=== PATIENT | female | born 1980 | race African-American/Black ===

== ENCOUNTER 2016-11-12 02:14 | Emergency (ER) | payer SELFPAY ==
[2016-11-12] MEDS ORDERED: METHOCARBAMOL 750 MG TABLET PO ONE (04:19)
--- NOTE | 2016-11-12 04:27 | ER Document Report ---
HPI - HPI Patient complains to provider of: neck shoulder arm spasm Onset: Other - september Quality of pain: Achy Severity: Severe Pain Level: 4 Context: Patient presents to the emergency department with complaints of right sided neck shoulder arm down to the fingertips pain. Patient reports symptoms since September. 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 She also reports that in September she fell down several times while rollerskating. She complains of spasms going down her shoulder and arm. She reports nothing is helping with the spasms. She reports she's attempted [id number] aids without relief of symptoms. Associated Symptoms: None Exacerbated by: Denies Relieved by: Denies Similar symptoms previously: No Recently seen / treated by doctor: No - REPRODUCTIVE LMP: 11-03-16 - DERM Skin Color: Normal Past Medical History - General Information source: Patient Last Menstrual Period: 5 days ago - Social History Smoking Status: Never Smoker Cigarette use (# per day): No Chew tobacco use (# tins/day): No Frequency of alcohol use: Occasional Drug Abuse: None Lives with: Family Family History: Reviewed & Not Pertinent, Other - RA mother Patient has suicidal ideation: No Patient has homicidal ideation: No Renal/ Medical History: Denies: Hx Peritoneal Dialysis Psychiatric Medical History: Reports: Hx Anxiety, Hx Post Traumatic Stress Disorder Surgical Hx: Negative Vertical Provider Document - CONSTITUTIONAL Agree With Documented VS: Yes Exam Limitations: No Limitations General Appearance: WD/WN, Mild Distress - winces with right shoulder/neck/arm - INFECTION CONTROL TRAVEL OUTSIDE OF THE [place] IN LAST 30 DAYS: No - HEENT HEENT: Atraumatic, Normocephalic - NECK Neck: Normal Inspection, Supple. negative: Lymphadenopathy-Left, Lymphadenopathy-Right - RESPIRATORY Respiratory: Breath Sounds Normal, No Respiratory Distress O2 Sat by Pulse Oximetry: 99 - CARDIOVASCULAR Cardiovascular: Regular Rate, Regular Rhythm - MUSCULOSKELETAL/EXTREMETIES Musculoskeletal/Extremeties: MAEW, FROM, Tender - c/o right trapezius, shoulder down arm to finger tips pain. c/o muscle spasms. 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 Patient is new to the area, will give her list of family care providers. 11/12/16 05:15 Patient reports she feels much better. Patient instructed on importance of follow-up with primary care provider. - Vital Signs Vital signs: Temp Pulse Resp BP Pulse Ox 97.8 F 93 18 133/91 H 99 11/12/16 02:28 11/12/16 02:28 11/12/16 02:28 11/12/16 02:28 11/12/16 02:28 Discharge - Discharge Clinical Impression: Muscle spasm of right shoulder, Elevated blood pressure reading Condition: Stable Disposition: HOME, SELF-CARE Instructions: Muscle Relaxers ([facility]), Family Physicians / Practices Additional Instructions: *You have been evaluated for right shoulder arm pain, muscle spasms *massage *Follow up with a primary care provider within one week *Take medication as prescribed *Return to ED for worsening condition, changes, needs, concerns Prescriptions: Cyclobenzaprine HCl [Flexeril 10 Mg Tablet] 10 mg PO TID #30 tablet Forms: Elevated Blood Pressure
[2016-11-12 05:43] VITALS: BP 122/82
== END 2016-11-12 05:32 | disposition home or self-care (01) ==
LOC: ER 02:14
DX: M62.838 Other muscle spasm (principal); R03.0 Elevated blood-pressure reading, without diagnosis of hypertension
CPT/HCPCS: 99283; J3490

== ENCOUNTER 2016-11-21 03:38 | Emergency (ER) | payer SELFPAY ==
[2016-11-21] MEDS ORDERED: ONDANSETRON HCL INJ/PF 4 MG/2 ML SDV IV ONE (04:16)
[2016-11-21] MEDS ORDERED: NORMAL SALINE 1000 ML 1,000 ML IV ONE (04:16)
--- NOTE | 2016-11-21 04:27 | ER Document Report ---
ED General - General TRAVEL OUTSIDE OF THE [place] IN LAST 30 DAYS: No <RONEY HAMMER - Last Filed: 11/21/16 06:53> <CÉSAR HORN - Last Filed: 11/21/16 12:28> - General Stated Complaint: VOMITING Notes: Patient is a 36-year-old female who presents with complaint of a syncopal episode. She does admit to drinking some alcohol tonight. Patient says she went to get to bathroom and does not remember much after that. She does have some headache. No chest pain. No shortness of breath. She does have some pain into right shoulder which has been ongoing for several days. She was seen here several days ago for spasming and her right shoulder. No difficulty breathing. No abdominal pain. She denies being . She says that she has a lot of things going on with her life and that her life is complicated but she would not go into that further. She denies being suicidal. She denies any injuries from the fall other than pain into her face and head. He denies any focal weakness or numbness. She denies any drug abuse. She denies any recent fevers or infections. (RONEY HAMMER) - Related Data Allergies/Adverse Reactions: No Known Allergies Allergy (Verified 11/21/16 05:06) Past Medical History - Social History Smoking Status: Unknown if Ever Smoked Frequency of alcohol use: Occasional Drug Abuse: None Family History: Reviewed & Not Pertinent, Other - RA mother Renal/ Medical History: Denies: Hx Peritoneal Dialysis Psychiatric Medical History: Reports: Hx Anxiety, Hx Post Traumatic Stress Disorder <RONEY HAMMER - Last Filed: 11/21/16 06:53> Review of Systems <RONEY HAMMER - Last Filed: 11/21/16 06:53> <CÉSAR HORN - Last Filed: 11/21/16 12:28> - Review of Systems Notes: My Normal Review Basic REVIEW OF SYSTEMS: CONSTITUTIONAL : Denies fever, chills, or sweats. Denies recent illness. EENT: Denies eye, ear, throat, or mouth pain or symptoms. Denies nasal or sinus congestion. CARDIOVASCULAR: Denies chest pain. RESPIRATORY: Denies cough, cold, or chest congestion. Denies shortness of breath, difficulty breathing, or wheezing. GASTROINTESTINAL: Denies abdominal pain. Denies nausea, vomiting, or diarrhea. Denies constipation. Last BM: : MUSCULOSKELETAL: Denies neck or back pain or joint pain or swelling. SKIN: Denies rash or skin lesions. NEUROLOGICAL: Syncopal episode. Headache. ALL OTHER SYSTEMS REVIEWED AND NEGATIVE. (RONEY HAMMER) Physical Exam <RONEY HAMMER - Last Filed: 11/21/16 06:53> <CÉSAR HORN - Last Filed: 11/21/16 12:28> - Vital signs Vitals: Resp 14 11/21/16 03:45 - Notes Notes: General Appearance: Well nourished, alert, cooperative, no acute distress, no obvious discomfort. Vitals: reviewed, See vital signs table. Head: no swelling or tenderness to the head Eyes: PERRL, EOMI, Conjuctiva clear Mouth: No decreasd moisture Neck: Supple, no neck tenderness, No thyromegaly Lungs: No wheezing, No rales, No rhonci, No accessory muscle use, good air exchange bilaterally. Heart: Normal rate, Regular rythm, No murmur, no rub Abdomen: Normal BS, soft, No rigidity, mild left-sided abdominal tenderness to palpation. Slightly distended abdomen. No guarding, no rebound, no abdominal masses, no organomegaly Extremities: strength 5/5 in all extremities, good pulses in all extremities, no swelling or tenderness in the extremities with exception of pain to palpation of the right shoulder., no edema. Skin: warm, dry, appropriate color, no rash Neuro: speech clear, oriented x 3, normal affect, responds appropriately to questions. Cranial nerves II through XII are intact. Distal sensation intact. Patient moves all extremities without difficulty. (RONEY HAMMRE) Course - Laboratory Result Diagrams: 11/21/16 04:29 11/21/16 04:57 <RONEY HAMMER - Last Filed: 11/21/16 06:53> - Laboratory Result Diagrams: 11/21/16 04:29 11/21/16 04:57 <CÉSAR HORN - Last Filed: 11/21/16 12:28> - Vital Signs Vital signs: Temp Pulse Resp BP Pulse Ox 97.9 F 15 94/51 L 99 11/21/16 06:48 11/21/16 09:02 11/21/16 09:02 11/21/16 08:00 - Laboratory Laboratory results interpreted by me: 11/21/16 11/21/16 11/21/16 04:29 04:57 05:26 RBC 3.45 L Hgb 10.8 L Hct 33.4 L RDW 18.6 H Seg Neutrophils % 37.3 L Lymphocytes % 50.7 H Sodium 145.2 H AST 47 H Urine Nitrite POSITIVE H Ur Leukocyte Esterase TRACE H Salicylates < 1.0 L Acetaminophen < 10 L Serum Alcohol 319 H* - EKG Interpretation by Me Additional EKG results interpreted by me: 11/21/16 05:33 EKG is reviewed and interpreted by me. EKG shows normal sinus rhythm with rate of [address] segment elevation or depression. No ischemic T wave inversions. QRS duration, QTC intervals are within normal range. No old EKG available for comparison. (RONEY HAMMER) - Transfer of Care Notes: 11/21/16 06:52 Patient's workup reveals that she is just very intoxicated with alcohol. This would explain her symptoms that she was having. Once patient is clinically sober she will be discharged in her family's care. Currently she still sleepy. She is arousable but still very intoxicated. She does request to speak with psychiatry can of course will keep her speak with psychiatry but she she initially denied any suicidal ideations or thoughts or any concerns in regards to that. (RONEY HAMMER) Discharge <RONEY HAMMER - Last Filed: 11/21/16 06:53> <CÉSAR HORN - Last Filed: 11/21/16 12:28> - Discharge Clinical Impression: Alcohol intoxication Qualifiers: Complication of substance-induced condition: uncomplicated Qualified Code(s): F10.120 - Alcohol abuse with intoxication, uncomplicated UTI (urinary tract infection) Qualifiers: Urinary tract infection type: site unspecified Hematuria presence: without hematuria Qualified Code(s): N39.0 - Urinary tract infection, site not specified Condition: Good Disposition: HOME, SELF-CARE Instructions: Urinary Tract Infection ([facility]), Nitrofurantoin ([facility]), Acute Alcohol Intoxication ([facility]) Additional Instructions: Please stop drinking alcohol. He is return to the ER if you have depression, thoughts of wanting to hurt yourself, recurrent vomiting, or feel unwell. Prescriptions: Nitrofurantoin/Nitrofuran Mac [Macrobid 100 mg Capsule] 1 tab PO BID #10 capsule Ondansetron [Zofran Odt 4 mg Tablet] 1 - 2 tab PO Q4H PRN #15 tab.rapdis PRN Reason: For Nausea/Vomiting Forms: Return to Work
[2016-11-21 04:44] LABS: ABSOLUTE LYMPHOCYTES (AUTO) 2.7 10^3/uL (0.5-4.7); ABSOLUTE MONOCYTES (AUTO) 0.6 10^3/uL (0.1-1.4); BASOPHILS % (AUTO) 0.8 % (0-2); EOSINOPHILS % (AUTO) 0.6 % (0-6); HEMATOCRIT 33.4 % (36.0-47.0); HEMOGLOBIN 10.8 g/dL (12.0-15.5); LYMPHOCYTES % (AUTO) 50.7 % (13-45); MEAN CORPUSCULAR HEMOGLOBIN 31.4 pg (27.0-33.4); MEAN CORPUSCULAR HGB CONC 32.4 g/dL (32.0-36.0); MEAN CORPUSCULAR VOLUME 97 fl (80-97); MONOCYTES % (AUTO) 10.6 % (3-13); RED BLOOD COUNT 3.45 10^6/uL (3.72-5.28); RED CELL DISTRIBUTION WIDTH 18.6 % (11.5-14.0); SEGMENTED NEUTROPHILS % (AUTO) 37.3 % (42-78); WHITE BLOOD COUNT 5.2 10^3/uL (4.0-10.5)
[2016-11-21 05:49] LABS: APPEARANCE,URINE CLEAR; BILIRUBIN,URINE NEGATIVE (NEGATIVE); GLUCOSE, URINE NEGATIVE (NEGATIVE); KETONES,URINE NEGATIVE (NEGATIVE); LEUKOCYTE ESTERASE,URINE TRACE (NEGATIVE); NITRITE,URINE POSITIVE (NEGATIVE); PROTEIN,URINE NEGATIVE (NEGATIVE); URINE SPECIFIC GRAVITY 1.006; UROBILINOGEN,URINE NEGATIVE mg/dL (<2.0)
[2016-11-21 06:00] LABS: URINE BARBITURATES SCREEN NEGATIVE; URINE METHADONE SCREEN NEGATIVE; URINE OPIATES LOW NEGATIVE; URINE PHENCYCLIDINE SCREEN NEGATIVE
[2016-11-21 06:02] LABS: ALANINE AMINOTRANSFERASE 35 U/L (9-52); ALBUMIN 4.6 g/dL (3.5-5.0); ALKALINE PHOSPHATASE 55 U/L (38-126); ANION GAP 15 (5-19); ASPARTATE AMINO TRANSFERASE 47 U/L (14-36); BILIRUBIN,TOTAL 0.3 mg/dL (0.2-1.3); BLOOD UREA NITROGEN 16 mg/dL (7-20); CALCIUM 9.6 mg/dL (8.4-10.2); CARBON DIOXIDE 24 mmol/L (22-30); CHLORIDE 106 mmol/L (98-107); CREATININE RESULT 0.54 mg/dL (0.52-1.25); GLUCOSE 87 mg/dL (75-110); POTASSIUM 4.7 mmol/L (3.6-5.0); SODIUM 145.2 mmol/L (137-145); TOTAL PROTEIN 7.8 g/dL (6.3-8.2)
[2016-11-21 06:43] LABS: ALCOHOL 319 mg/dL (NONE DETECTED)
[2016-11-21] MEDS ORDERED: NITROFURANTOIN MONOHYD/M-CRYST 100 MG CAPSULE PO ONE (09:02)
[2016-11-21 12:32] VITALS: BP 108/80
--- NOTE | 2016-11-21 12:50 | PSYCHOLOGICAL NOTE ---
Psych Note - Psych Note Psych Note: Patient is a 36 year old female who presented with concerns related to possible syncopal episode. It was determined though lab work that she is acutely intoxicated, which was the likely reason for her episode. Patient was offered to stay for consultation, although denied suicidal/homicidal ideations intent, plan or means. Patient this morning states she has been drinking more frequently to cope with her emotions surrounding being unloved by her family. Patient states she was living with her sister and mother; however, there was constant discord. She states her friend who is bedside came and rescued her, but it is harder for her to see a loving family interact. Discussed with patient available services, to include opt counseling. Patient states she does not need this service because she is not crazy. Patient states she speaks with God. Patient extensively discusses her discord with her family, the love from her girlfriend, and her internal struggle watching her girlfriend's family lovingly interact. Patient continues to discuss that she does not need to speak with a counselor to be told to write out her feelings, and exercise, etc. Patient denies suicidal/homicidal ideations. Patient states she has a safe living environment. Patient reports no concerns at this time. Patient's friend/support is bedside and reports no concerns at this time. She does not offer much information at all. Patient is A&O. Mood is manic like with odd affects. Patient denies suicidal/ homicidal ideations, intent, plan, or means. Patient denies A/V h; delusions not noted. Thought processes were circumferential. Conversational speech was pressured. Intellectual abilities were estimated within average range. Attention and focus were poor. Insight, judgment, and impulse control were poor. Diagnosis: Deferred R/O Alcohol Use Disorder R/O Bipolar Patient is psychiatrically cleared for discharge. Patient strongly encouraged to follow up with a clinical outpatient provider; however, she remains resistant towards professional intervention. Patient presents with manic type mood, to also include pressured speech and circumferential speech. However, she denies suicidal/homicidal ideations, intent, plan, or means. Patient denies any history. Patient additionally refused resources. I consulted with Dr. Lea in regards to the care and management of this patient. ED MD is in agreement with disposition and recommendations.
--- NOTE | 2016-11-21 20:07 | EKG REPORT ---
SEVERITY:- NORMAL ECG - SINUS RHYTHM : Confirmed by: Orlando Hernandez 21-Nov-2016 20:06:27
== END 2016-11-21 12:43 | disposition home or self-care (01) ==
LOC: ER 03:38
DX: F10.120 Alcohol abuse with intoxication, uncomplicated (principal); N39.0 Urinary tract infection, site not specified; R51 Headache; R55 Syncope and collapse; M25.511 Pain in right shoulder
CPT/HCPCS: 93005; 99285; 96374; 36415; 87086; 80307 ×4; 84702; 85025; 87088; 80053; 81001; 87186; 70450; 93010; J2405; J8499

== ENCOUNTER 2017-03-12 22:03 | Emergency (ER) | payer SELFPAY ==
--- NOTE | 2017-03-12 23:38 | ER Document Report ---
ED General - General Chief Complaint: Psych Problem Stated Complaint: IVC WITH PAPERS Time Seen by Provider: 03/12/17 22:55 TRAVEL OUTSIDE OF THE [place] IN LAST 30 DAYS: No - HPI Patient complains to provider of: suicide attempt Notes: Patient is coming in for evaluation of a suicide attempt according to the IVC paperwork. IVC paperwork was taken out by the patient's significant other. States patient an overdose of Benadryl and Motrin earlier in a suicide attempt also has been acting very aggressive at home. Patient currently denies any suicide attempt at home denies any suicidal thoughts. Patient does admit to drinking alcohol. Patient denies any other psychiatric history denies any inpatient psychiatric hospitalizations. Patient denies any past medical problems. - Related Data Allergies/Adverse Reactions: No Known Allergies Allergy (Verified 11/21/16 05:06) Past Medical History - Social History Smoking Status: Never Smoker Chew tobacco use (# tins/day): No Frequency of alcohol use: Social Drug Abuse: None Family History: Reviewed & Not Pertinent, Other - RA mother Renal/ Medical History: Denies: Hx Peritoneal Dialysis Psychiatric Medical History: Reports: Hx Anxiety, Hx Post Traumatic Stress Disorder Surgical Hx: Negative Review of Systems - Review of Systems Constitutional: No symptoms reported EENT: No symptoms reported Cardiovascular: No symptoms reported Respiratory: No symptoms reported Gastrointestinal: No symptoms reported Genitourinary: No symptoms reported Female Genitourinary: No symptoms reported Musculoskeletal: No symptoms reported Skin: No symptoms reported Hematologic/Lymphatic: No symptoms reported Neurological/Psychological: Suicidal ideation -: Yes All other systems reviewed and negative Physical Exam - Vital signs Vitals: Temp Pulse Resp BP Pulse Ox 97.8 F 93 16 113/72 97 03/12/17 23:00 03/12/17 23:00 03/12/17 23:00 03/12/17 23:00 03/12/17 23:00 Interpretation: Normal - General General appearance: Appears well, Alert - HEENT Head: Normocephalic, Atraumatic Eyes: Normal Pupils: PERRL - Respiratory Respiratory status: No respiratory distress Chest status: Nontender Breath sounds: Normal Chest palpation: Normal - Cardiovascular Rhythm: Regular Heart sounds: Normal auscultation Murmur: No - Abdominal Inspection: Normal Distension: No distension Bowel sounds: Normal Tenderness: Nontender Organomegaly: No organomegaly - Back Back: Normal, Nontender - Extremities General upper extremity: Normal inspection, Nontender, Normal color, Normal ROM , Normal temperature General lower extremity: Normal inspection, Nontender, Normal color, Normal ROM , Normal temperature, Normal weight bearing. No: Mavis's sign - Neurological Neuro grossly intact: Yes Cognition: Normal Orientation: AAOx4 [place] Coma Scale Eye Opening: Spontaneous [place] Coma Scale Verbal: Oriented Lam Coma Scale Motor: Obeys Commands Lam Coma Scale Total: 15 Speech: Normal Motor strength normal: LUE, RUE, LLE, RLE Sensory: Normal - Psychological Associated symptoms: Normal affect, Normal mood - Skin Skin Temperature: Warm Skin Moisture: Dry Skin Color: Normal Course - Re-evaluation Re-evalutation: 03/12/17 23:37 Pending current IVC laboratory studies are negative patient more likely be cleared for psychiatric evaluation in the morning for require confirmation of the IVC paperwork statements. 03/13/17 03:13 Urinalysis shows signs of infection will send urine for culture will start patient on Macrobid. Patient also has elevated alcohol. Patient otherwise medically cleared for our psychiatric evaluation in the morning - Vital Signs Vital signs: Temp Pulse Resp BP Pulse Ox 97.8 F 93 16 113/72 97 03/12/17 23:00 03/12/17 23:00 03/12/17 23:00 03/12/17 23:00 03/12/17 23:00 - Laboratory Result Diagrams: 03/12/17 23:21 03/12/17 23:21 Laboratory results interpreted by me: 03/12/17 03/12/17 03/12/17 22:21 23:21 23:21 RBC 3.68 L Hgb 11.4 L Hct 35.4 L RDW 16.0 H Seg Neutrophils % 41.1 L Sodium 145.2 H BUN 3 L AST 55 H Urine Nitrite POSITIVE H Ur Leukocyte Esterase MODERATE H Salicylates < 1.0 L Acetaminophen < 10 L Discharge - Discharge Clinical Impression: Suicidal ideation UTI (urinary tract infection) Qualifiers: Urinary tract infection type: site unspecified Hematuria presence: without hematuria Qualified Code(s): N39.0 - Urinary tract infection, site not specified Acute alcohol intoxication Qualifiers: Complication of substance-induced condition: uncomplicated Qualified Code(s): F10.920 - Alcohol use, unspecified with intoxication, uncomplicated Condition: Good Disposition: PSYCH HOSP/UNIT
[2017-03-12 23:44] LABS: ABSOLUTE LYMPHOCYTES (AUTO) 1.9 10^3/uL (0.5-4.7); ABSOLUTE MONOCYTES (AUTO) 0.5 10^3/uL (0.1-1.4); ABSOLUTE NEUT (AUTO) 1.7 10^3/uL (1.7-8.2); BASOPHILS % (AUTO) 1.1 % (0-2); EOSINOPHILS % (AUTO) 0.8 % (0-6); HEMATOCRIT 35.4 % (36.0-47.0); HEMOGLOBIN 11.4 g/dL (12.0-15.5); HGB HCT DIFFERENCE -1.2; LYMPHOCYTES % (AUTO) 44.5 % (13-45); MEAN CORPUSCULAR HGB CONC 32.1 g/dL (32.0-36.0); MEAN CORPUSCULAR VOLUME 96 fl (80-97); MONOCYTES % (AUTO) 12.5 % (3-13); RED BLOOD COUNT 3.68 10^6/uL (3.72-5.28); SEGMENTED NEUTROPHILS % (AUTO) 41.1 % (42-78); WHITE BLOOD COUNT 4.2 10^3/uL (4.0-10.5)
[2017-03-12 23:47] LABS: ALANINE AMINOTRANSFERASE 45 U/L (9-52); ALBUMIN 4.3 g/dL (3.5-5.0); ALCOHOL 260 mg/dL (NONE DETECTED); ALKALINE PHOSPHATASE 44 U/L (38-126); ANION GAP 14 (5-19); ASPARTATE AMINO TRANSFERASE 55 U/L (14-36); BILIRUBIN,DIRECT 0.3 mg/dL (0.0-0.4); BILIRUBIN,TOTAL 0.3 mg/dL (0.2-1.3); BLOOD UREA NITROGEN 3 mg/dL (7-20); CALCIUM 9.3 mg/dL (8.4-10.2); CARBON DIOXIDE 25 mmol/L (22-30); CHLORIDE 106 mmol/L (98-107); CREATININE RESULT 0.53 mg/dL (0.52-1.25); GLUCOSE 100 mg/dL (75-110); POTASSIUM 4.4 mmol/L (3.6-5.0); SODIUM 145.2 mmol/L (137-145); TOTAL PROTEIN 7.7 g/dL (6.3-8.2)
[2017-03-13] MEDS ORDERED: ACETAMINOPHEN 325 MG TABLET PO ONE ×2 (00:08→00:15)
[2017-03-13 00:12] LABS: APPEARANCE,URINE SLIGHTLY-CLOUDY; BILIRUBIN,URINE NEGATIVE (NEGATIVE); GLUCOSE, URINE NEGATIVE (NEGATIVE); KETONES,URINE NEGATIVE (NEGATIVE); LEUKOCYTE ESTERASE,URINE MODERATE (NEGATIVE); NITRITE,URINE POSITIVE (NEGATIVE); PROTEIN,URINE NEGATIVE (NEGATIVE); URINE SPECIFIC GRAVITY 1.006; UROBILINOGEN,URINE NEGATIVE mg/dL (<2.0)
[2017-03-13 00:24] LABS: URINE BARBITURATES SCREEN NEGATIVE; URINE METHADONE SCREEN NEGATIVE; URINE OPIATES LOW NEGATIVE; URINE PHENCYCLIDINE SCREEN NEGATIVE
[2017-03-13] MEDS ORDERED: NITROFURANTOIN MONOHYD/M-CRYST 100 MG CAPSULE PO ONE (03:30)
[2017-03-13] MEDS: ACETAMINOPHEN 325 MG TABLET PO PRN (09:38)
[2017-03-13] MEDS: NITROFURANTOIN MONOHYD/M-CRYST 100 MG CAPSULE PO SCH ×2 (09:40→17:46)
--- NOTE | 2017-03-13 11:22 | EKG REPORT ---
SEVERITY:- NORMAL ECG - SINUS RHYTHM : Confirmed by: Orlando Hernandez 13-Mar-2017 11:22:13
[2017-03-13] MEDS ORDERED: HYDROXYZINE PAMOATE 50 MG CAPSULE PO PRN (17:36)
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
[2017-03-13] MEDS ORDERED: BUSPIRONE HCL 10 MG TABLET PO SCH (22:00)
[2017-03-14] MEDS: NITROFURANTOIN MONOHYD/M-CRYST 100 MG CAPSULE PO SCH (10:10)
[2017-03-14] MEDS: ACETAMINOPHEN 325 MG TABLET PO PRN (10:12)
--- NOTE | 2017-03-14 10:37 | ER Document Report ---
Doctor's Note Notes: 03/14/17 10:37 I have evaluated this patient this am and has no c/o at this time. Feels all of their needs are being met and physical exam is normal. Awaiting dispositon per mental health. 03/14/17 16:28 Pt evaluated by Mental Health and they are recommending discharge with f/u at [facility] on March 17 at 10 am. Pt is comfortable with plan and is no longer expressing any suicidal thoughts. Given strict return precautions and she understands.
[2017-03-14 15:55] VITALS: BP 140/94
== END 2017-03-14 17:30 | disposition home or self-care (01) ==
LOC: ER 22:03
DX: R45.851 Suicidal ideations (principal); N39.0 Urinary tract infection, site not specified; F10.920 Alcohol use, unspecified with intoxication, uncomplicated
CPT/HCPCS: 93005; 99285; 36415; 87086; 80307 ×4; 84703; 85025; 87088; 80053; 81001; 87186; 93010; J8499

== ENCOUNTER 2017-04-24 09:13 | Emergency (ER) | payer SELFPAY ==
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
[2017-04-24 10:25] LABS: APPEARANCE,URINE CLEAR; BILIRUBIN,URINE NEGATIVE (NEGATIVE); GLUCOSE, URINE NEGATIVE (NEGATIVE); KETONES,URINE NEGATIVE (NEGATIVE); LEUKOCYTE ESTERASE,URINE NEGATIVE (NEGATIVE); NITRITE,URINE NEGATIVE (NEGATIVE); PROTEIN,URINE NEGATIVE (NEGATIVE); URINE SPECIFIC GRAVITY 1.006; UROBILINOGEN,URINE NEGATIVE mg/dL (<2.0)
[2017-04-24 10:38] LABS: URINE BARBITURATES SCREEN NEGATIVE; URINE METHADONE SCREEN NEGATIVE; URINE OPIATES LOW NEGATIVE; URINE PHENCYCLIDINE SCREEN NEGATIVE
--- NOTE | 2017-04-24 10:56 | RADIOLOGY REPORT (SQ) ---
EXAM DESCRIPTION: CT HEAD WITHOUT COMPLETED DATE/TIME: 04/24/2017 10:16 am REASON FOR STUDY: intoxicated COMPARISON: None. TECHNIQUE: Axial images acquired through the brain without intravenous contrast. Images reviewed wi th bone, brain and subdural windows. Images stored on PACS. All CT scanners at this facility use dose modulation, iterative reconstruction, and/or weight based d osing when appropriate to reduce radiation dose to as low as reasonably achievable (ALARA). [facility]: Dose Right [facility]: CareDose [facility]: Dose Right [facility]: Teradose 4D [facility]: Smart Z[employer] RADIATION DOSE: Up-to-date CT equipment and radiation dose reduction techniques were employed. CTDIv ol: 64.6 mGy. DLP: 1163 mGy-cm. mGy. LIMITATIONS: None. FINDINGS: VENTRICLES: Normal size and contour. CEREBRUM: No masses. No hemorrhage. No midline shift. Normal guillen/white matter differentiation. N o evidence for acute infarction. CEREBELLUM: No masses. No hemorrhage. No alteration of density. No evidence for acute infarction. EXTRAAXIAL SPACES: No fluid collections. No masses. ORBITS AND GLOBE: No intra- or extraconal masses. Normal contour of globe without masses. CALVARIUM: No fracture. PARANASAL SINUSES: No fluid or mucosal thickening. SOFT TISSUES: No mass or hematoma. OTHER: No other significant finding. IMPRESSION: NORMAL BRAIN CT WITHOUT CONTRAST. TECHNICAL DOCUMENTATION: JOB ID: [id number] Quality ID # [id number]: Final reports with documentation of one or more dose reduction techniques (e.g., Au tomated exposure control, adjustment of the mA and/or kV according to patient size, use of iterative reconstruction technique) 2010 [employer]- All Rights Reserved
--- NOTE | 2017-04-24 10:59 | RADIOLOGY REPORT (SQ) ---
EXAM DESCRIPTION: CT CERVICAL SPINE WITHOUT COMPLETED DATE/TIME: 04/24/2017 10:16 am REASON FOR STUDY: intoxicated COMPARISON: None. TECHNIQUE: Axial images acquired through the cervical spine without intravenous contrast. Images re viewed with lung, soft tissue and bone windows. Reconstructed coronal and sagittal MPR images review ed. Images stored on PACS. All CT scanners at this facility use dose modulation, iterative reconstruction, and/or weight based d osing when appropriate to reduce radiation dose to as low as reasonably achievable (ALARA). [facility]: Dose Right [facility]: CareDose [facility]: Dose Right [facility]: Teradose 4D [facility]: Smart Paragon 28 RADIATION DOSE: Up-to-date CT equipment and radiation dose reduction techniques were employed. CTDIv ol: 12.0 mGy. DLP: 234 mGy-cm. mGy. LIMITATIONS: None. FINDINGS: ALIGNMENT: Anatomic. MINERALIZATION: Normal. VERTEBRAL BODIES: No fractures or dislocation. DISCS: No significant disc disease. FACETS, LATERAL MASSES, POSTERIOR ELEMENTS: No fractures. No dislocation. No acute findings. HARDWARE: None in the spine. VISUALIZED RIBS: No fractures. LUNG APICES AND SOFT TISSUES: No significant or acute findings. OTHER: No other significant finding. IMPRESSION: NO ACUTE OR SIGNIFICANT FINDINGS IN THE CERVICAL SPINE. TECHNICAL DOCUMENTATION: JOB ID: [id number] Quality ID # [id number]: Final reports with documentation of one or more dose reduction techniques (e.g., Au tomated exposure control, adjustment of the mA and/or kV according to patient size, use of iterative reconstruction technique) 2010 [employer]- All Rights Reserved
[2017-04-24 11:05] LABS: ABSOLUTE LYMPHOCYTES (AUTO) 2.6 10^3/uL (0.5-4.7); ABSOLUTE MONOCYTES (AUTO) 0.3 10^3/uL (0.1-1.4); BASOPHILS % (AUTO) 0.7 % (0-2); EOSINOPHILS % (AUTO) 0.1 % (0-6); HEMATOCRIT 35.1 % (36.0-47.0); HEMOGLOBIN 11.5 g/dL (12.0-15.5); HGB HCT DIFFERENCE -0.6; LYMPHOCYTES % (AUTO) 51.8 % (13-45); MEAN CORPUSCULAR HEMOGLOBIN 30.1 pg (27.0-33.4); MEAN CORPUSCULAR HGB CONC 32.8 g/dL (32.0-36.0); MEAN CORPUSCULAR VOLUME 92 fl (80-97); MONOCYTES % (AUTO) 6.9 % (3-13); RED BLOOD COUNT 3.82 10^6/uL (3.72-5.28); RED CELL DISTRIBUTION WIDTH 15.7 % (11.5-14.0); SEGMENTED NEUTROPHILS % (AUTO) 40.5 % (42-78)
--- NOTE | 2017-04-24 11:06 | RADIOLOGY REPORT (SQ) ---
EXAM DESCRIPTION: ANKLE RIGHT COMPLETE COMPLETED DATE/TIME: 04/24/2017 10:26 am REASON FOR STUDY: intoxicated COMPARISON: None. NUMBER OF VIEWS: Three views. TECHNIQUE: AP, lateral, and oblique radiographic images acquired of the right ankle. LIMITATIONS: None. FINDINGS: MINERALIZATION: Normal. BONES: No acute fracture or dislocation. No worrisome bone lesions. JOINTS: No effusions. SOFT TISSUES: No soft tissue swelling. No foreign body. OTHER: No other significant finding. IMPRESSION: NEGATIVE STUDY OF THE RIGHT ANKLE. NO RADIOGRAPHIC EVIDENCE OF ACUTE INJURY. TECHNICAL DOCUMENTATION: JOB ID: [id number] 3250 [employer]- All Rights Reserved
[2017-04-24 11:23] LABS: ALANINE AMINOTRANSFERASE 24 U/L (9-52); ALBUMIN 4.9 g/dL (3.5-5.0); ALCOHOL 299 mg/dL (NONE DETECTED); ALKALINE PHOSPHATASE 40 U/L (38-126); ANION GAP 18 (5-19); ASPARTATE AMINO TRANSFERASE 37 U/L (14-36); BILIRUBIN,DIRECT 0.3 mg/dL (0.0-0.4); BILIRUBIN,TOTAL 0.3 mg/dL (0.2-1.3); BLOOD UREA NITROGEN 6 mg/dL (7-20); CARBON DIOXIDE 20 mmol/L (22-30); CHLORIDE 107 mmol/L (98-107); CREATININE RESULT 0.61 mg/dL (0.52-1.25); GLUCOSE 99 mg/dL (75-110); POTASSIUM 4.7 mmol/L (3.6-5.0); SODIUM 144.9 mmol/L (137-145)
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
[2017-04-24] MEDS ORDERED: ACETAMINOPHEN 325 MG TABLET PO ONE (13:44)
[2017-04-24 16:59] VITALS: BP 112/66
--- NOTE | 2017-04-24 23:06 | EKG REPORT ---
SEVERITY:- NORMAL ECG - SINUS RHYTHM : Confirmed by: Orlando Hernandez 24-Apr-2017 23:06:30
== END 2017-04-24 17:09 | disposition home or self-care (01) ==
LOC: ER 09:13
DX: S99.911A Unspecified injury of right ankle, initial encounter (principal); Y93.89 Activity, other specified; X50.1XXA Overexertion from prolonged static or awkward postures, initial encounter; F10.120 Alcohol abuse with intoxication, uncomplicated; Y90.8 Blood alcohol level of 240 mg/100 ml or more; F17.200 Nicotine dependence, unspecified, uncomplicated; M25.571 Pain in right ankle and joints of right foot; M54.2 Cervicalgia
CPT/HCPCS: 93005; 99285; 36415; 80307 ×4; 85025; 80053; 81001; 73610; 70450; 72125; 93010; L0120; L0172

== ENCOUNTER 2017-04-25 15:30 | Emergency (ER) | payer SELFPAY ==
--- NOTE | 2017-04-25 16:11 | ER Document Report ---
ED Medical Screen (RME) - General Chief Complaint: Psych Problem Stated Complaint: PSYCH EVAL Time Seen by Provider: 04/25/17 16:07 Mode of Arrival: Wheelchair Information source: Patient Notes: pt presents requesting treatment for alcohol detoxification. Patient denies any suicidal or homicidal ideation. Patient states she last drink alcohol yesterday. Patient typically drinks 48 ounces of beer daily. TRAVEL OUTSIDE OF THE [place]. IN LAST 30 DAYS: No - Related Data Allergies/Adverse Reactions: No Known Allergies Allergy (Verified 11/21/16 05:06) Past Medical History Renal/ Medical History: Denies: Hx Peritoneal Dialysis Psychiatric Medical History: Reports: Hx Anxiety, Hx Post Traumatic Stress Disorder Physical Exam - Vital signs Vitals: Temp Pulse Resp BP Pulse Ox 99.1 F 98 16 119/74 96 04/25/17 15:41 04/25/17 15:41 04/25/17 15:41 04/25/17 15:41 04/25/17 15:41 - Psychological Associated symptoms: Flat affect Course - Vital Signs Vital signs: Temp Pulse Resp BP Pulse Ox 99.1 F 98 16 119/74 96 04/25/17 15:41 04/25/17 15:41 04/25/17 15:41 04/25/17 15:41 04/25/17 15:41
--- NOTE | 2017-04-25 17:00 | ER Document Report ---
ED Psych Disorder / Suicide - General Chief Complaint: Psych Problem Stated Complaint: PSYCH EVAL Time Seen by Provider: 04/25/17 16:07 Mode of Arrival: Wheelchair Information source: Patient, [facility] Records TRAVEL OUTSIDE OF THE [place] IN LAST 30 DAYS: No - HPI Patient complains to provider of: Other - ETOH abuse Onset: Other Onset was: Cannot confirm Suicide Risk Factors: Lack of social support, No spouse, Substance abuse - daily drinker, Other - homeless Situational problems related to: Legal problems - multiple prior arrests, Other - evicted from [facility] 2 days ago, same day she was released from 33 days in [facility] and admitted to [facility] Normal mood: Yes Associated symptoms: Circumferential speech, Depressed, Flat affect Similar symptoms previously: Yes Recently seen / treated by doctor: Yes - yesterday Notes: Patient is a 36 year old female who presents today with c/o needing help with her alcoholism. Patient was seen and dsicharged from this facility yesterday for similar complaint. Patient has a long history of daily ETOH, as well as multiple arrests within the past 60 days. Patient was incarcerated for 33 days and recently released and admitted into a sober living facility, where she was evicted from that night due to ETOH. Patient today presents with all of her belongings stating she has no place to go. Patient states she is here to ask for help, and wants to "get better and stay better." Patient denies ETOH consumption today, and further denies any withdrawal related symptoms/ complaints. She reports her last drink was yesterday morning. Discussed with patient her options in regards to substance abuse treatment, to include mobile crisis assisting in locating a voluntary detox bed, engaging in outpatient substance abuse treatment via [facility]. Patient again states she has no where to go. Also provided patient with local resources, specifically the homeless [facility]. Patient states she has been in communication with her brother, who continues to encourage her to do the right thing, and seek sobriety , but is not a residential option. Patient denies suicidal/homicidal ideations , intent, plan, or means. Patient is A&O. Mood is euthymic with animated affects. Patient denies SI/HI, intent, plan, or means. Patient denies A/V H; delusions not noted. Thought processes were tangential. Conversational speech was circumferential. Intellectual abilities were estimated within average range. Attention and focus were poor. Insight, judgment, and impulse control were poor. Alcohol Use Disorder, Severe R/O Bipolar Disorder Patient is psychiatrically cleared for discharge. Patient is recommended to pursue SA treatment, possibly via [facility]. Discussed with patient requesting assistance from [employer], who has been known to assist in seeking detox placement. Patient does not meet criteria for IVC per the [id number] as she denies SI/HI and is not experiencing command hallucinations. Patient was been provided resources and follow up information numerous times to assist with alcohol treatment and sobriety. I consulted with Dr. Lea in regards to the care and management of this patient. - Related Data Allergies/Adverse Reactions: No Known Allergies Allergy (Verified 11/21/16 05:06) Past Medical History - General Information source: Patient, [facility] Records - Social History Smoking Status: Unknown if Ever Smoked Family History: Reviewed & Not Pertinent, Other - RA mother Patient has suicidal ideation: No Patient has homicidal ideation: No Renal/ Medical History: Denies: Hx Peritoneal Dialysis Psychiatric Medical History: Reports: Hx Anxiety, Hx Post Traumatic Stress Disorder Physical Exam - Vital signs Vitals: Temp Pulse Resp BP Pulse Ox 99.1 F 98 16 119/74 96 04/25/17 15:41 04/25/17 15:41 04/25/17 15:41 04/25/17 15:41 04/25/17 15:41 Course - Vital Signs Vital signs: Temp Pulse Resp BP Pulse Ox 99.1 F 98 16 119/74 96 04/25/17 15:41 04/25/17 15:41 04/25/17 15:41 04/25/17 15:41 04/25/17 15:41 Discharge - Discharge Clinical Impression: Alcohol abuse Condition: Stable Disposition: HOME, SELF-CARE Additional Instructions: Alcohol Abuse Alcohol overdosage is usually due to an underlying emotional or psychiatric problem. You may benefit from counselling. If "binge" drinking is an ongoing problem for you, or if you drink ANY AMOUNT of alcohol EVERY day, you most likely have a tendency to alcoholism. You should avoid alcohol totally. We can refer you for treatment. Persons with alcohol problems are often also prone to other addictions -- you should discuss any use of medications or drugs with the doctor. Please pursue detox or substance abuse treatment by a provider discussed such as mobile crisis to assist you in locating a detox bed, or [facility] for outpatient treatment. You have been provided numerous resources to assist you, to also include local shelters. Unfortunately, the ER cannot assist with your lack of housing. Referrals: [facility] Crisis Team [Provider Group] - Follow up as needed (please call and request assistance with detox placement.) [facility] [Provider Group] - Follow up as needed (This [facility] an [facility] for [facility] abuse services)
[2017-04-25 17:19] LABS: APPEARANCE,URINE CLEAR; BILIRUBIN,URINE NEGATIVE (NEGATIVE); GLUCOSE, URINE NEGATIVE (NEGATIVE); KETONES,URINE NEGATIVE (NEGATIVE); LEUKOCYTE ESTERASE,URINE NEGATIVE (NEGATIVE); NITRITE,URINE NEGATIVE (NEGATIVE); PROTEIN,URINE NEGATIVE (NEGATIVE); URINE SPECIFIC GRAVITY 1.006; UROBILINOGEN,URINE NEGATIVE mg/dL (<2.0)
[2017-04-25 17:33] LABS: URINE BARBITURATES SCREEN NEGATIVE; URINE METHADONE SCREEN NEGATIVE; URINE OPIATES LOW NEGATIVE; URINE PHENCYCLIDINE SCREEN NEGATIVE
[2017-04-25 18:25] LABS: ABSOLUTE LYMPHOCYTES (AUTO) 3.1 10^3/uL (0.5-4.7); ABSOLUTE MONOCYTES (AUTO) 0.3 10^3/uL (0.1-1.4); ABSOLUTE NEUT (AUTO) 2.6 10^3/uL (1.7-8.2); BASOPHILS % (AUTO) 0.7 % (0-2); EOSINOPHILS % (AUTO) 0.2 % (0-6); HEMATOCRIT 34.4 % (36.0-47.0); HEMOGLOBIN 11.4 g/dL (12.0-15.5); HGB HCT DIFFERENCE -0.2; LYMPHOCYTES % (AUTO) 51.5 % (13-45); MEAN CORPUSCULAR HEMOGLOBIN 30.5 pg (27.0-33.4); MEAN CORPUSCULAR HGB CONC 33.2 g/dL (32.0-36.0); MEAN CORPUSCULAR VOLUME 92 fl (80-97); MONOCYTES % (AUTO) 4.7 % (3-13); RED BLOOD COUNT 3.74 10^6/uL (3.72-5.28); RED CELL DISTRIBUTION WIDTH 15.4 % (11.5-14.0); SEGMENTED NEUTROPHILS % (AUTO) 42.9 % (42-78); WHITE BLOOD COUNT 6.1 10^3/uL (4.0-10.5)
[2017-04-25 18:43] LABS: ALANINE AMINOTRANSFERASE 28 U/L (9-52); ALBUMIN 5.3 g/dL (3.5-5.0); ALCOHOL 270 mg/dL (NONE DETECTED); ALKALINE PHOSPHATASE 54 U/L (38-126); ASPARTATE AMINO TRANSFERASE 41 U/L (14-36); BILIRUBIN,DIRECT 0.4 mg/dL (0.0-0.4); BILIRUBIN,TOTAL 0.5 mg/dL (0.2-1.3); BLOOD UREA NITROGEN 6 mg/dL (7-20); CALCIUM 10.3 mg/dL (8.4-10.2); CREATININE RESULT 0.64 mg/dL (0.52-1.25); GLUCOSE 102 mg/dL (75-110); TOTAL PROTEIN 8.9 g/dL (6.3-8.2)
[2017-04-25 18:55] LABS: CARBON DIOXIDE 21 mmol/L (22-30); CHLORIDE 102 mmol/L (98-107); POTASSIUM 4.4 mmol/L (3.6-5.0); SODIUM 144.7 mmol/L (137-145)
[2017-04-25 18:59] LABS: ANION GAP 22 (5-19)
--- NOTE | 2017-04-25 19:14 | EKG REPORT ---
SEVERITY:- BORDERLINE ECG - SINUS RHYTHM PROBABLE LEFT ATRIAL ABNORMALITY : Confirmed by: Geovani Kemp MD 25-Apr-2017 19:13:52
--- NOTE | 2017-04-25 22:28 | ER Document Report ---
ED General - General Chief Complaint: Psych Problem Stated Complaint: PSYCH EVAL Time Seen by Provider: 04/25/17 16:07 Mode of Arrival: Wheelchair TRAVEL OUTSIDE OF THE [place] IN LAST 30 DAYS: No - HPI Patient complains to provider of: Psych evaluation Notes: Patient is coming in for evaluation for alcoholism. Patient is already been evaluated by our psychiatric team. Upon my evaluation patient is resting comfortably and has no complaints at this time patient states she has already had an appointment to follow-up report in the morning. Patient does state that she had a recent fall still has pain of her right ankle. Patient states recently seen did not have an x-ray of this ankle. Otherwise patient has no other complaints denies fevers chills nausea vomiting diarrhea. - Related Data Allergies/Adverse Reactions: No Known Allergies Allergy (Verified 11/21/16 05:06) Past Medical History - General Information source: Patient, [facility] Records - Social History Smoking Status: Unknown if Ever Smoked Family History: Reviewed & Not Pertinent, Other - RA mother Patient has suicidal ideation: No Patient has homicidal ideation: No Renal/ Medical History: Denies: Hx Peritoneal Dialysis Psychiatric Medical History: Reports: Hx Anxiety, Hx Post Traumatic Stress Disorder Review of Systems - Review of Systems Constitutional: No symptoms reported EENT: No symptoms reported Cardiovascular: No symptoms reported Respiratory: No symptoms reported Gastrointestinal: No symptoms reported Genitourinary: No symptoms reported Female Genitourinary: No symptoms reported Musculoskeletal: No symptoms reported Skin: No symptoms reported Hematologic/Lymphatic: No symptoms reported Neurological/Psychological: Other - Acute alcoholism Physical Exam - Vital signs Vitals: Temp Pulse Resp BP Pulse Ox 99.1 F 98 16 119/74 96 04/25/17 15:41 04/25/17 15:41 04/25/17 15:41 04/25/17 15:41 04/25/17 15:41 Interpretation: Normal - General General appearance: Appears well, Alert - HEENT Head: Normocephalic, Atraumatic Eyes: Normal Pupils: PERRL - Respiratory Respiratory status: No respiratory distress Chest status: Nontender Breath sounds: Normal Chest palpation: Normal - Cardiovascular Rhythm: Regular Heart sounds: Normal auscultation Murmur: No - Abdominal Inspection: Normal Distension: No distension Bowel sounds: Normal Tenderness: Nontender Organomegaly: No organomegaly - Back Back: Normal, Nontender - Extremities General upper extremity: Normal inspection, Nontender, Normal color, Normal ROM , Normal temperature General lower extremity: Nontender, Normal color, Normal ROM, Normal temperature , Normal weight bearing. No: Normal inspection - Minimal swelling and bruising to the lateral malleolus of the right ankle. Otherwise lower extremities normal , Mavis's sign - Neurological Neuro grossly intact: Yes Cognition: Normal Orientation: AAOx4 Lam Coma Scale Eye Opening: Spontaneous Lam Coma Scale Verbal: Oriented Weston Coma Scale Motor: Obeys Commands Lam Coma Scale Total: 15 Speech: Normal Motor strength normal: LUE, RUE, LLE, RLE Sensory: Normal - Psychological Associated symptoms: Normal affect, Normal mood - Skin Skin Temperature: Warm Skin Moisture: Dry Skin Color: Normal Course - Re-evaluation Re-evalutation: 04/26/17 00:15 Reviewed patient's previous visit does show the patient under went a CT of the head with ankle x-ray showing no obvious traumatic findings. Patient will be discharged - Vital Signs Vital signs: Temp Pulse Resp BP Pulse Ox 99.1 F 92 18 122/73 98 04/25/17 15:41 04/25/17 23:30 04/25/17 23:30 04/25/17 23:30 04/25/17 23:30 - Laboratory Result Diagrams: 04/25/17 18:15 04/25/17 18:15 Laboratory results interpreted by me: 04/25/17 04/25/17 18:15 18:15 Hgb 11.4 L Hct 34.4 L RDW 15.4 H Lymphocytes % 51.5 H Carbon Dioxide 21 L Anion Gap 22 H BUN 6 L Calcium 10.3 H AST 41 H Total Protein 8.9 H Albumin 5.3 H Salicylates < 1.0 L Acetaminophen < 10 L Discharge - Discharge Clinical Impression: Alcohol abuse Ankle injury Qualifiers: Encounter type: initial encounter Laterality: right Qualified Code(s): S99.911A - Unspecified injury of right ankle, initial encounter Alcohol intoxication Qualifiers: Complication of substance-induced condition: uncomplicated Qualified Code(s): F10.920 - Alcohol use, unspecified with intoxication, uncomplicated Condition: Good Disposition: HOME, SELF-CARE Additional Instructions: Alcohol Abuse Alcohol overdosage is usually due to an underlying emotional or psychiatric problem. You may benefit from counselling. If "binge" drinking is an ongoing problem for you, or if you drink ANY AMOUNT of alcohol EVERY day, you most likely have a tendency to alcoholism. You should avoid alcohol totally. We can refer you for treatment. Persons with alcohol problems are often also prone to other addictions -- you should discuss any use of medications or drugs with the doctor. Please pursue detox or substance abuse treatment by a provider discussed such as mobile crisis to assist you in locating a detox bed, or [facility] for outpatient treatment. You have been provided numerous resources to assist you, to also include local shelters. Unfortunately, the ER cannot assist with your lack of housing. Prescriptions: Chlordiazepoxide HCl [Librium 25 mg Capsule] 1 cap PO QID #7 capsule Referrals: [facility] Crisis Team [Provider Group] - Follow up as needed (please call and request assistance with detox placement.) [facility] [Provider Group] - Follow up as needed (This [facility] an [facility] provider for substance abuse services)
[2017-04-25] MEDS ORDERED: LIDOCAINE 5% (700 MG) TRANSDERMAL ADH..PATCH TP ONE (23:08)
[2017-04-26 02:13] VITALS: BP 118/69
== END 2017-04-26 02:25 | disposition home or self-care (01) ==
LOC: ER 15:30
DX: S99.911A Unspecified injury of right ankle, initial encounter (principal); F10.920 Alcohol use, unspecified with intoxication, uncomplicated; W19.XXXA Unspecified fall, initial encounter
CPT/HCPCS: 36415; 80053; 80307; 81001; 84703; 85025; 93005; 93010; 99284

== ENCOUNTER 2017-05-05 13:28 | Emergency (ER) | payer SELFPAY ==
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
[2017-05-05 14:45] LABS: ABSOLUTE LYMPHOCYTES (AUTO) 1.9 10^3/uL (0.5-4.7); ABSOLUTE MONOCYTES (AUTO) 0.2 10^3/uL (0.1-1.4); ABSOLUTE NEUT (AUTO) 1.9 10^3/uL (1.7-8.2); BASOPHILS % (AUTO) 0.8 % (0-2); HEMATOCRIT 31.6 % (36.0-47.0); HEMOGLOBIN 10.3 g/dL (12.0-15.5); HGB HCT DIFFERENCE -0.7; LYMPHOCYTES % (AUTO) 46.6 % (13-45); MEAN CORPUSCULAR HEMOGLOBIN 30.3 pg (27.0-33.4); MEAN CORPUSCULAR HGB CONC 32.7 g/dL (32.0-36.0); MEAN CORPUSCULAR VOLUME 93 fl (80-97); MONOCYTES % (AUTO) 5.5 % (3-13); RED BLOOD COUNT 3.41 10^6/uL (3.72-5.28); RED CELL DISTRIBUTION WIDTH 16.1 % (11.5-14.0); SEGMENTED NEUTROPHILS % (AUTO) 47.1 % (42-78); WHITE BLOOD COUNT 4.1 10^3/uL (4.0-10.5)
[2017-05-05 15:03] LABS: APPEARANCE,URINE SLIGHTLY-CLOUDY; BILIRUBIN,URINE NEGATIVE (NEGATIVE); GLUCOSE, URINE NEGATIVE (NEGATIVE); KETONES,URINE NEGATIVE (NEGATIVE); LEUKOCYTE ESTERASE,URINE NEGATIVE (NEGATIVE); NITRITE,URINE NEGATIVE (NEGATIVE); PROTEIN,URINE NEGATIVE (NEGATIVE); URINE SPECIFIC GRAVITY 1.005; UROBILINOGEN,URINE NEGATIVE mg/dL (<2.0)
[2017-05-05 15:13] LABS: ALANINE AMINOTRANSFERASE 29 U/L (9-52); ALBUMIN 4.8 g/dL (3.5-5.0); ALKALINE PHOSPHATASE 45 U/L (38-126); ANION GAP 18 (5-19); ASPARTATE AMINO TRANSFERASE 42 U/L (14-36); BILIRUBIN,DIRECT 0.3 mg/dL (0.0-0.4); BILIRUBIN,TOTAL 0.3 mg/dL (0.2-1.3); BLOOD UREA NITROGEN 4 mg/dL (7-20); CALCIUM 9.6 mg/dL (8.4-10.2); CARBON DIOXIDE 18 mmol/L (22-30); CHLORIDE 109 mmol/L (98-107); CREATININE RESULT 0.62 mg/dL (0.52-1.25); GLUCOSE 119 mg/dL (75-110); POTASSIUM 3.7 mmol/L (3.6-5.0); SODIUM 145.4 mmol/L (137-145); TOTAL PROTEIN 7.9 g/dL (6.3-8.2)
[2017-05-05 15:23] LABS: URINE BARBITURATES SCREEN NEGATIVE; URINE METHADONE SCREEN NEGATIVE; URINE OPIATES LOW NEGATIVE; URINE PHENCYCLIDINE SCREEN NEGATIVE
[2017-05-05 15:33] LABS: ALCOHOL 353 mg/dL (NONE DETECTED)
[2017-05-05 15:43] LABS: THYROID STIMULATING HORMONE 0.25 uIU/mL (0.47-4.68)
[2017-05-05] MEDS ORDERED: HYDROXYZINE PAMOATE 50 MG CAPSULE PO PRN (17:10)
[2017-05-05] MEDS ORDERED: LORAZEPAM 1 MG TABLET PO PRN (18:54)
--- NOTE | 2017-05-05 21:23 | EKG REPORT ---
SEVERITY:- NORMAL ECG - SINUS RHYTHM : Confirmed by: Orlando Hernandez 05-May-2017 21:22:41
[2017-05-05] MEDS ORDERED: BUSPIRONE HCL 10 MG TABLET PO SCH (22:00)
[2017-05-06 06:51] VITALS: BP 118/77
[2017-05-06] MEDS ORDERED: NORMAL SALINE 1000 ML 1,000 ML IV ONE (09:21)
--- NOTE | 2017-05-06 09:23 | ER Document Report ---
Doctor's Note Notes: 05/06/17 09:22 36-year-old female with past medical history of schizophrenia who supposedly has not been taking her medications who presents intoxicated and wandering the streets. Labs as recorded showing some dehydration. Blood alcohol 353. Vital signs are stable with a normal heart rate of 65 at this time. We are awaiting psychiatric evaluation. I have provided a liter of fluid secondary to the patient's presentation with dehydration and a high blood alcohol level. 05/06/17 13:34 Patient has received a liter of fluid and has tolerated p.o.'s. Patient denies any suicidal or homicidal ideations at this time. Patient currently denies any auditory or visual hallucinations. They have accepted to see the patient across the street [facility] for medication adjustments. Patient states she is very comfortable at this time to go across the street and be treated. Psychiatry is seeing the patient and states that she does no longer meet qualifications for IVC placement and their expert recommendation is to discharge the patient at this time and transfer her across the street to [facility].
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
== END 2017-05-06 14:13 | disposition home or self-care (01) ==
LOC: ER 13:28
DX: F10.229 Alcohol dependence with intoxication, unspecified (principal)
CPT/HCPCS: 36415; 80053; 80307; 81001; 84439; 84443; 84481; 84702; 85025; 93005; 93010; 99285

== ENCOUNTER 2017-06-27 12:33 | Emergency (ER) | payer SELFPAY ==
[2017-06-27] MEDS ORDERED: KETOROLAC TROMETHAMINE 60 MG/2 ML SDV IM ONE (13:28)
[2017-06-27] MEDS ORDERED: DEXAMETHASONE SOD PHOS INJ 10 MG/1 ML VIAL IM ONE (13:28)
--- NOTE | 2017-06-27 14:31 | RADIOLOGY REPORT (SQ) ---
EXAM DESCRIPTION: SHOULDER RIGHT 2 OR MORE VIEWS COMPLETED DATE/TIME: 06/27/2017 2:23 pm REASON FOR STUDY: pain after fall COMPARISON: None. NUMBER OF VIEWS: Three views. TECHNIQUE: Internal rotation, external rotation, and Y view images acquired of the right shoulder. LIMITATIONS: None. FINDINGS: MINERALIZATION: Normal. BONES: No acute fracture or dislocation. No worrisome bone lesions. JOINTS: No dislocation. VISUALIZED LUNGS AND RIBS: No pneumothorax. No rib fracture. SOFT TISSUES: No radiopaque foreign body. OTHER: No other significant finding. IMPRESSION: NEGATIVE STUDY OF THE RIGHT SHOULDER. NO RADIOGRAPHIC EVIDENCE OF ACUTE INJURY. TECHNICAL DOCUMENTATION: JOB ID: [id number] [employer]- All Rights Reserved
--- NOTE | 2017-06-27 15:08 | ER Document Report ---
ED Extremity Problem, Upper - General Chief Complaint: Shoulder Pain Stated Complaint: RIGHT SHOULDER PAIN Time Seen by Provider: 06/27/17 13:13 Mode of Arrival: Ambulatory Information source: Patient Notes: 36-year-old female presents to ED for complaint of pain to the right shoulder. She has a history of pain in the same and was told that this was chronic problem. She was told she had some spinal injuries from repetitive irritation. She states she was lifting a mattress yesterday at work and fell against the wall causing her to have more pain after she was drinking alcohol. Patient is able to complete full range of motion with pain. She states that she feels like a grasp and feeling in her hand and this is been going on for at least 5-6 months. She states she had pain sharp pain last week and the pain is just worse after falling against the wall. 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 TRAVEL OUTSIDE OF THE [place] IN LAST 30 DAYS: No - HPI Patient complains to provider of: Pain, Right, Shoulder Onset: Other - Chronic pain with exacerbation when she fell against a wall last night when drinking Recent injury: Possibly Where: Work Quality of pain: Sharp Severity of pain: Intermittent, Worse Pain Level: 5 Context: Other - Chronic pain Associated symptoms: Other - "grasping" feeling to hand Exacerbated by: Movement, Exertion Relieved by: Rest, Positioning Similar symptoms previously: Yes Recently seen / treated by doctor: Yes - Related Data Allergies/Adverse Reactions: No Known Allergies Allergy (Verified 06/27/17 12:56) Past Medical History - General Information source: Patient - Social History Smoking Status: Never Smoker Cigarette use (# per day): No Chew tobacco use (# tins/day): No Smoking Education Provided: No Frequency of alcohol use: Rare - States she was a heavy drinker and had stopped last night she relapsed Drug Abuse: None 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 denies: CAD, COPD, CVA, DM, Hyperlipidemia, Hypertension, Malignancy, Thyroid Disfunction Patient has suicidal ideation: No - Past Medical History Cardiac Medical History: Reports: None Pulmonary Medical History: Reports: Hx Bronchitis EENT Medical History: Reports: None Neurological Medical History: Reports: None Endocrine Medical History: Reports: None Renal/ Medical History: Reports: None Malignancy Medical History: Reports: None GI Medical History: Reports: None Musculoskeltal Medical History: Reports Hx Arthritis, Reports Hx Musculoskeletal Deformity, Reports Hx Musculoskeletal Trauma Skin Medical History: Reports None Psychiatric Medical History: Reports: Hx Anxiety, Hx Bipolar Disorder, Hx Depression, Hx Post Traumatic Stress Disorder, Hx Schizophrenia Infectious Medical History: Reports: None Surgical Hx: Negative Past Surgical History: Reports: None Review of Systems - Review of Systems Constitutional: No symptoms reported EENT: No symptoms reported Cardiovascular: No symptoms reported Respiratory: No symptoms reported Gastrointestinal: No symptoms reported Genitourinary: No symptoms reported Female Genitourinary: No symptoms reported Musculoskeletal: Joint pain - right shoulder pain Skin: No symptoms reported Hematologic/Lymphatic: No symptoms reported Neurological/Psychological: No symptoms reported -: Yes All other systems reviewed and negative Physical Exam - Vital signs Vitals: Temp Pulse Resp BP Pulse Ox 98.1 F 106 H 16 136/90 H 100 06/27/17 12:56 06/27/17 12:56 06/27/17 12:56 06/27/17 12:56 06/27/17 12:56 Interpretation: Normal - General General appearance: Appears well, Alert - HEENT Head: Normocephalic, Atraumatic Eyes: Normal Pupils: PERRL - Respiratory Respiratory status: No respiratory distress Chest status: Nontender Breath sounds: Normal Chest palpation: Normal - Cardiovascular Rhythm: Regular Heart sounds: Normal auscultation Murmur: No - Abdominal Inspection: Normal Distension: No distension Bowel sounds: Normal Tenderness: Nontender Organomegaly: No organomegaly - Back Back: Normal, Nontender - Extremities General upper extremity: Normal inspection, Normal color, Normal temperature General lower extremity: Normal inspection, Nontender, Normal color, Normal ROM , Normal temperature, Normal weight bearing. No: Mavis's sign Shoulder: Tender, Limited ROM - due to pain able to move. No: Abrasion, Deformity, Dislocation, Ecchymosis, Instability, Laceration Arm: Tender. No: Ecchymosis, Instability, Laceration - Neurological Neuro grossly intact: Yes Cognition: Normal Orientation: AAOx4 [place] Coma Scale Eye Opening: Spontaneous [place] Coma Scale Verbal: Oriented Lam Coma Scale Motor: Obeys Commands [place] Coma Scale Total: 15 Speech: Normal Motor strength normal: LUE, RUE, LLE, RLE Sensory: Normal - Psychological Associated symptoms: Normal affect, Normal mood - Skin Skin Temperature: Warm Skin Moisture: Dry Skin Color: Normal Course - Re-evaluation Re-evalutation: 06/27/17 19:23 Discussed x-rays with patient and written report given the patient to follow-up with orthopedics. Patient was treated with Decadron and Toradol for her pain. Patient was instructed to take ibuprofen and Tylenol for her pain. No narcotics given for her chronic pain. - Vital Signs Vital signs: Temp Pulse Resp BP Pulse Ox 97.7 F 85 20 139/87 H 100 06/27/17 15:21 06/27/17 15:21 06/27/17 15:21 06/27/17 15:21 06/27/17 15:21 - Diagnostic Test Radiology reviewed: Image reviewed, Reports reviewed Discharge - Discharge Clinical Impression: Right shoulder pain Qualifiers: Chronicity: unspecified Qualified Code(s): M25.511 - Pain in right shoulder Condition: Stable Disposition: HOME, SELF-CARE Additional Instructions: You were seen today for right shoulder pain and you have been examined in the past for the same pain. There is no acute injury noted to the bones on xray. You were given a steroid and toradol injection for the pain while in the ed. You will need to follow up with orthopedics or pain management for the pain. Chronic Pain Control Stress, inactivity, and depression make pain more severe regardless of the cause of the pain. Stress and poor physical condition can cause pain such as headaches and backache. Relaxation: Rest in a quiet place with your eyes closed for 20 minutes twice daily. Concentrate on a pleasant image, or simply "feel" your breathing. Clear your mind. Stress management: Deal with your "stressors." Either take action, or eliminate the stressor from your life. Don't let things hang over you. Accept those things you can't change. Nutrition: Eat small, balanced meals -- don't skip, don't overeat. Meals should be high-carbohydrate, low-sugar, low-fat. Exercise: Exercise helps painful conditions and eases stress. Get 30 minutes of moderate exercise, five days a week. Do an activity that does not flare your pain. Precautions: Pain which continues to disrupt daily activities, or which changes in nature, requires a medical evaluation. Pain Clinic referral is available. We do not manage chronic pain in the Emergency Department. We will try to appropriately help you through an acute flare of your chronic painful condition , but for on-going chronic pain that does not improve, you will need to see your private doctor or buildings painter. We do not provide repeated medication management of chronic painful conditions. If you wish, we can provide the name of local pain management physicians. Ice Packs Apply ice packs frequently against the painful area. Many different schedules are recommended, such as "20 minutes on, 20 minutes off" or "one hour ice, two hours rest." If you need to work, you may need to go longer between ice treatments. You should plan to have the area ice packed AT LEAST one fourth of the time. The ice should be applied over the wrap, tape, or splint, or over a layer of cloth -- not directly against the skin. Some ice bags have a built-in cloth and can be put directly on the skin. USE OF [id number]-[id number] IBUPROFEN: Ibuprofen (Advil, Nuprin, Medipren, Motrin IB) is a medication for fever and pain control. In addition, it has anti- inflammatory effects which may be beneficial, especially in the treatment of injuries. It's best to take ibuprofen with food. Persons with ulcer disease or allergy to aspirin should notify their physician of this before taking ibuprofen. Ibuprofen can be given every four to six hours, for a total of four doses daily. Age Pain or fever dose Antiinflammatory dose 6-8 yr 200 mg (1 tab) 200 mg (1 tab) 9-11 yr 200 mg (1 tab) 200-400 mg (1-2 tab) 11-14 yr 200-400 mg (1-2 tab) 400 mg (2 tab) 15-adult 400 mg (2 tab) 600 mg (3 tab) FOLLOW-UP CARE: If you have been referred to a physician for follow-up care, call the physician s office for an appointment as you were instructed or within the next two days. If you experience worsening or a significant change in your symptoms, notify the physician immediately or return to the Emergency Department at any time for re-evaluation. Prescriptions: Ibuprofen 600 mg PO Q6HP PRN #20 tablet PRN Reason: Forms: Elevated Blood Pressure, Return to Work Referrals: JUNE BLACKWELL, [ACTIVE STAFF] - Follow up as needed
[2017-06-27 15:28] VITALS: BP 139/87
== END 2017-06-27 15:39 | disposition home or self-care (01) ==
LOC: ER 12:33
DX: M25.511 Pain in right shoulder (principal); G89.29 Other chronic pain; X50.0XXA Overexertion from strenuous movement or load, initial encounter; Y99.0 Civilian activity done for income or pay
CPT/HCPCS: 99283; 96372; 82962; 73030; J1885; J1100

== ENCOUNTER 2018-01-02 15:17 | Inpatient (IN) | payer SELFPAY ==
--- NOTE | 2018-01-02 17:08 | ER Document Report ---
ED Medical Screen (RME) - General Chief Complaint: Abdominal Pain Stated Complaint: ABDOMINAL PAIN Time Seen by Provider: 01/02/18 17:05 Notes: Patient states she has severe central abdominal pain. She denies that she is . She denies any significant past medical history of abdominal pathology. TRAVEL OUTSIDE OF THE [place] IN LAST 30 DAYS: No - Related Data Allergies/Adverse Reactions: No Known Allergies Allergy (Verified 06/27/17 12:56) Past Medical History - Social History Frequency of alcohol use: Social Pulmonary Medical History: Reports: Hx Bronchitis Renal/ Medical History: Denies: Hx Peritoneal Dialysis Musculoskeltal Medical History: Reports Hx Arthritis, Reports Hx Musculoskeletal Deformity, Reports Hx Musculoskeletal Trauma Psychiatric Medical History: Reports: Hx Anxiety, Hx Bipolar Disorder, Hx Depression, Hx Post Traumatic Stress Disorder, Hx Schizophrenia Physical Exam - Vital signs Vitals: Temp Pulse Resp BP Pulse Ox 97.7 F 76 16 129/79 H 99 01/02/18 15:40 01/02/18 15:40 01/02/18 15:40 01/02/18 15:40 01/02/18 15:40 Course - Vital Signs Vital signs: Temp Pulse Resp BP Pulse Ox 97.7 F 76 16 129/79 H 99 01/02/18 15:40 01/02/18 15:40 01/02/18 15:40 01/02/18 15:40 01/02/18 15:40
[2018-01-02] MEDS ORDERED: HYDROMORPHONE HCL INJ/PF 2 MG/ML AMPULE IV ONE ×2 (17:37→18:48)
[2018-01-02] MEDS ORDERED: HYDROMORPHONE HCL INJ/PF 2 MG/ML AMPULE IM ONE (17:38)
[2018-01-02 18:46] LABS: ABSOLUTE LYMPHOCYTES (AUTO) 1.1 10^3/uL (0.5-4.7); ABSOLUTE MONOCYTES (AUTO) 0.5 10^3/uL (0.1-1.4); ABSOLUTE NEUT (AUTO) 3.7 10^3/uL (1.7-8.2); BASOPHILS % (AUTO) 0.4 % (0-2); EOSINOPHILS % (AUTO) 0.2 % (0-6); HEMATOCRIT 36.7 % (36.0-47.0); HEMOGLOBIN 12.2 g/dL (12.0-15.5); LYMPHOCYTES % (AUTO) 20.9 % (13-45); MEAN CORPUSCULAR HEMOGLOBIN 29.9 pg (27.0-33.4); MEAN CORPUSCULAR HGB CONC 33.2 g/dL (32.0-36.0); MEAN CORPUSCULAR VOLUME 90 fl (80-97); MONOCYTES % (AUTO) 10.2 % (3-13); PLATELET COUNT 253 10^3/uL (150-450); RED BLOOD COUNT 4.08 10^6/uL (3.72-5.28); RED CELL DISTRIBUTION WIDTH 22.5 % (11.5-14.0); SEGMENTED NEUTROPHILS % (AUTO) 68.3 % (42-78); TOTAL CELLS COUNTED % (AUTO) 100 %; WHITE BLOOD COUNT 5.4 10^3/uL (4.0-10.5)
[2018-01-02 18:48] LABS: AMORPHOUS SEDIMENT,URINE TRACE /HPF; APPEARANCE,URINE SLIGHTLY-CLOUDY; BILIRUBIN,URINE NEGATIVE (NEGATIVE); COLOR,URINE YELLOW; GLUCOSE, URINE NEGATIVE (NEGATIVE); KETONES,URINE 80 mg/dL (NEGATIVE); LEUKOCYTE ESTERASE,URINE SMALL (NEGATIVE); NITRITE,URINE NEGATIVE (NEGATIVE); PROTEIN,URINE NEGATIVE (NEGATIVE); URINE SPECIFIC GRAVITY 1.023; UROBILINOGEN,URINE NEGATIVE mg/dL (<2.0)
[2018-01-02 19:02] LABS: ALANINE AMINOTRANSFERASE 32 U/L (9-52); ALBUMIN 4.9 g/dL (3.5-5.0); ALKALINE PHOSPHATASE 57 U/L (38-126); ANION GAP 19 (5-19); ASPARTATE AMINO TRANSFERASE 68 U/L (14-36); BILIRUBIN,DIRECT 0.4 mg/dL (0.0-0.4); BILIRUBIN,TOTAL 0.5 mg/dL (0.2-1.3); BLOOD UREA NITROGEN 7 mg/dL (7-20); CALCIUM 9.9 mg/dL (8.4-10.2); CARBON DIOXIDE 22 mmol/L (22-30); CHLORIDE 100 mmol/L (98-107); GLUCOSE 106 mg/dL (75-110); SODIUM 140.9 mmol/L (137-145); TOTAL PROTEIN 8.2 g/dL (6.3-8.2)
[2018-01-02] MEDS ORDERED: NORMAL SALINE 1000 ML 1,000 ML IV PRN ×2 (19:46→20:54)
[2018-01-02] MEDS ORDERED: KETOROLAC TROMETHAMINE INJ/PF 30 MG/1 ML SDV IV ONE (19:46)
[2018-01-02] MEDS ORDERED: ONDANSETRON HCL INJ/PF 4 MG/2 ML SDV IV ONE (19:46)
--- NOTE | 2018-01-02 20:12 | ER Document Report ---
ED GI/ - General Chief Complaint: Abdominal Pain Stated Complaint: ABDOMINAL PAIN Time Seen by Provider: 01/02/18 17:05 Notes: The patient is a 37-year-old female, past medical history alcoholism, presents with a day of epigastric pain, nausea and vomiting. Patient denies fevers, back pain, right upper quadrant abdominal pain, headache, focal weakness, numbness, tingling, diarrhea, constipation or rash. TRAVEL OUTSIDE OF THE [place] IN LAST 30 DAYS: No - Related Data Allergies/Adverse Reactions: No Known Allergies Allergy (Verified 06/27/17 12:56) Past Medical History - General Information source: Patient - Social History Smoking Status: Never Smoker Frequency of alcohol use: Heavy Family History: Arthritis, Other - RA mother. denies: CAD, COPD, CVA, DM, Hyperlipidemia, Hypertension, Malignancy, Thyroid Disfunction Patient has suicidal ideation: No Patient has homicidal ideation: No Pulmonary Medical History: Reports: Hx Bronchitis Renal/ Medical History: Denies: Hx Peritoneal Dialysis Musculoskeltal Medical History: Reports Hx Arthritis, Reports Hx Musculoskeletal Deformity, Reports Hx Musculoskeletal Trauma Psychiatric Medical History: Reports: Hx Anxiety, Hx Bipolar Disorder, Hx Depression, Hx Post Traumatic Stress Disorder, Hx Schizophrenia Review of Systems - Review of Systems Notes: REVIEW OF SYSTEMS: CONSTITUTIONAL: -fevers, -chills EENT: -eye pain, -difficulty swallowing, -nasal congestion CARDIOVASCULAR: -chest pain, -syncope. RESPIRATORY: -cough, -SOB GASTROINTESTINAL: +epigastric abdominal pain, +nausea, +vomiting, -diarrhea GENITOURINARY: -dysuria, -hematuria MUSCULOSKELETAL: -back pain, -neck pain SKIN: -rash or skin lesions. HEMATOLOGIC: -easy bruising or bleeding. LYMPHATIC: -swollen, enlarged glands. NEUROLOGICAL: -altered mental status or loss of consciousness, -headache, - neurologic symptoms PSYCHIATRIC: -anxiety, -depression. ALL OTHER SYSTEMS REVIEWED AND NEGATIVE. Physical Exam - Vital signs Vitals: Temp Pulse Resp BP Pulse Ox 97.7 F 76 16 129/79 H 99 01/02/18 15:40 01/02/18 15:40 01/02/18 15:40 01/02/18 15:40 01/02/18 15:40 - Notes Notes: PHYSICAL EXAMINATION: GENERAL: Uncomfortable. HEAD: Atraumatic, normocephalic. EYES: Pupils equal round and reactive to light, extraocular movements intact, sclera anicteric, conjunctiva are normal. ENT: nares patent, oropharynx clear without exudates. Moist mucous membranes. NECK: Normal range of motion, supple without lymphadenopathy LUNGS: Breath sounds clear to auscultation bilaterally and equal. No wheezes rales or rhonchi. HEART: Regular rate and rhythm without murmurs ABDOMEN: Soft, moderate epigastric tender, normoactive bowel sounds. +guarding , no rebound. No masses appreciated. EXTREMITIES: Normal range of motion, no pitting or edema. No cyanosis. NEUROLOGICAL: Cranial nerves grossly intact. Normal sensory and motor exams. PSYCH: Crying. SKIN: Warm, Dry, normal turgor, no rashes or lesions noted. Course - Re-evaluation Re-evalutation: Patient with epigastric pain, nausea, vomiting, lipase of 3900 and history of heavy alcohol abuse. She has acute pancreatitis. Her bilirubin are not elevated and she has no right upper quadrant abdominal pain to suggest gallstone pancreatitis. After multiple IV pain control doses, antiemetics and fluids, she is still in pain and is feeling nauseous. Patient's alcohol is negative today, but there are no signs of alcohol withdrawal at this time. She said her last drink was yesterday night. Looking through prior ED records, her ETOH levels are frequently in the high 200's. She requires admission for further evaluation and treatment. We will keep patient n.p.o. Her doctor is Dr. Holden. 01/02/18 20:[address] Freed (Hospitalist) and she has accepted patient as Inpatient for further evaluation and treatment. - Vital Signs Vital signs: Temp Pulse Resp BP Pulse Ox 97.7 F 76 16 129/79 H 99 01/02/18 15:40 01/02/18 15:40 01/02/18 15:40 01/02/18 15:40 01/02/18 15:40 - Laboratory Result Diagrams: 01/02/18 18:29 01/02/18 18:29 Laboratory results interpreted by me: 01/02/18 01/02/18 01/02/18 16:05 18:29 18:29 RDW 22.5 H AST 68 H Lipase 3951.0 H Urine Ketones 80 H Ur Leukocyte Esterase SMALL H Discharge - Discharge Clinical Impression: Acute alcoholic pancreatitis Qualifiers: Acute pancreatitis complication: unspecified Qualified Code(s): K85.20 - Alcohol induced acute pancreatitis without necrosis or infection Condition: Stable Disposition: ADMITTED INPATIENT Admitting Provider: Hospitalist [facility] Admitted: Medical Floor
[2018-01-02] MEDS ORDERED: ALBUTEROL SULFATE 0.083% NEB 2.5 MG/3 ML AMPUL NEB PRN (20:54)
[2018-01-02] MEDS ORDERED: FENTANYL CITRATE INJ/PF 100 MCG/2 ML AMPUL IV PRN (21:00)
[2018-01-02] MEDS ORDERED: THIAMINE HCL 100 MG TABLET PO SCH (22:00)
[2018-01-02] MEDS ORDERED: (PENDING PHARMACY ID) (Prazosin Hcl [Prazosin Hcl] 1 MG) PO SCH (22:00)
--- NOTE | 2018-01-02 22:11 | PDOC H&P ---
History of Present Illness Patient complains of: Nausea/ vomiting and worsening left-sided abdominal pain over the last 4 days. History of Present Illness: CHRISTINE RODGERS is a 37 year old female with history of alcohol use (possible dependency) and bipolar disorder was admitted with above-mentioned complaints. According to the patient, she usually drinks 2-3 beers a day about 3 times a week but since 12/30/2017 she has been drinking 3-4 beers a day after a . She admits to having an "alcohol problem" but seems to minimize the amount ingested. She denies any drug abuse. She said that she started having epigastric pain radiating down to the periumbilical area on the left side and flank few days ago. The pain was sharp, intermittent,10/10 in intensity which did not improve with BC powder. She was also feeling nauseous and she vomited multiple times. The last time she vomited was today with clear, nonbloody vomitus. She has been having diarrhea as well with a small, loose nonbloody stool today. She has a very poor appetite for the last several days. She denies any fever or chills or any shortness of breath but complains of some stabbing chest pain, no heartburns. She denies any urinary symptoms but she complains of generalized weakness. In the ED, her temperature was 97.7, heart rate 76, respiratory rate 16, blood pressure 129/79 with oxygen saturation 99% on room air. Her WBC was 5.4 with AST /ALT of 68/32 and lipase 3951. Her alcohol level was less than 10. UA was positive. She was started on normal saline and was given 15 mg IV Toradol x1, 0.5 mg IV Dilaudid x2 and 1 mg IV Dilaudid x1 with some improvement in her abdominal pain down to 6/10. Past Medical History Pulmonary Medical History: Reports: Bronchitis Musculoskeltal Medical History: Reports: Arthritis Psychiatric Medical History: Reports: Bipolar Disorder, Depression, Post Traumatic Stress Disorder Past Surgical History Past Surgical History: Reports: None Social History Smoking Status: Never Smoker Frequency of Alcohol Use: Heavy - She admits to drinking 2-3 beers a day 3 times a week for many years. Hx Recreational Drug Use: No Family History Family History: Arthritis, Other - RA mother. denies: CAD, COPD, CVA, DM, Hyperlipidemia, Hypertension, Malignancy, Thyroid Disfunction Parental Family History Reviewed: Yes - Family history of diabetes. Children Family History Reviewed: No Sibling(s) Family History Reviewed.: Yes Medication/Allergy Home Medications: Gabapentin 300 mg PO TID 01/02/18 Ibuprofen 600 mg PO Q6HP 01/02/18 Prazosin HCl 1 mg PO QHS 01/02/18 Allergies/Adverse Reactions: No Known Allergies Allergy (Verified 06/27/17 12:56) Review of Systems ROS unobtainable: Other - Pertinent positives and negatives as detailed in the HPI. Physical Exam Vital Signs: Temp Pulse Resp BP Pulse Ox 97.7 F 76 16 129/79 H 99 01/02/18 15:40 01/02/18 15:40 01/02/18 15:40 01/02/18 15:40 01/02/18 15:40 Intake & Output 01/01/18 01/02/18 01/03/18 06:59 06:59 06:59 Weight 62.7 kg General appearance: PRESENT: no acute distress, well-developed, well-nourished Head exam: PRESENT: atraumatic, normocephalic Eye exam: PRESENT: EOMI, other - Pinpointed pupils. Mouth exam: PRESENT: moist Neck exam: PRESENT: full ROM. ABSENT: JVD Respiratory exam: PRESENT: decreased breath sounds, stridor. ABSENT: rales, rhonchi, wheezes Cardiovascular exam: PRESENT: RRR, +S1, +S2 Pulses: PRESENT: normal dorsalis pedis pul GI/Abdominal exam: PRESENT: normal bowel sounds, soft, tenderness - epigastric and LUQ.. ABSENT: distended, rebound Rectal exam: PRESENT: deferred Extremities exam: PRESENT: full ROM. ABSENT: pedal edema Musculoskeletal exam: PRESENT: full ROM Neurological exam: PRESENT: alert, altered, awake, oriented to person, oriented to place, oriented to time, oriented to situation. ABSENT: motor sensory deficit Skin exam: PRESENT: dry, warm. ABSENT: intact, rash Results Laboratory Results: 01/02/18 18:29 01/02/18 18:29 01/02/18 01/02/18 01/02/18 16:05 18:29 18:29 WBC 5.4 RBC 4.08 Hgb 12.2 Hct 36.7 MCV 90 MCH 29.9 MCHC 33.2 RDW 22.5 H Plt Count 253 Seg Neutrophils % 68.3 Lymphocytes % 20.9 Monocytes % 10.2 Eosinophils % 0.2 Basophils % 0.4 Absolute Neutrophils 3.7 Absolute Lymphocytes 1.1 Absolute Monocytes 0.5 Absolute Eosinophils 0.0 Absolute Basophils 0.0 Sodium 140.9 Potassium 4.0 Chloride 100 Carbon Dioxide 22 Anion Gap 19 BUN 7 Creatinine 0.54 Est GFR ( Amer) > 60 Est GFR (Non-Af Amer) > 60 Glucose 106 Calcium 9.9 Total Bilirubin 0.5 AST 68 H ALT 32 Alkaline Phosphatase 57 Total Protein 8.2 Albumin 4.9 Lipase 3951.0 H Urine Color YELLOW Urine Appearance SLIGHTLY-CLOUDY Urine pH 5.0 Ur Specific Bullock 1.023 Urine Protein NEGATIVE Urine Glucose (UA) NEGATIVE Urine Ketones 80 H Urine Blood NEGATIVE Urine Nitrite NEGATIVE Ur Leukocyte Esterase SMALL H Urine WBC (Auto) 40 Urine RBC (Auto) 2 Assessment & Plan - Diagnosis (1) Acute pancreatitis Qualifiers: Acute pancreatitis complication: unspecified Is this a current diagnosis for this admission?: Yes Plan: secondary to alcohol most likely. AST/ALT is 2:1 and lipase 3951. Will continue aggressive IV hydration and supportive care with antiemetics and pain medications. Will also start PPI and check triglyceride level and an abdominal CAT scan. (2) Alcohol use Is this a current diagnosis for this admission?: Yes Plan: Possible dependency. There is no evidence of any alcohol withdrawal at this time. will start daily thiamine and folic acid. Will also start oral Ativan as needed and monitor. (3) Bacteria in urine Is this a current diagnosis for this admission?: Yes Plan: Asymptomatic. Will not start antibiotics. (4) Bipolar disorder Is this a current diagnosis for this admission?: No Plan: She receives Invega injections around the 15th of each month. She is also on prazosin 1 mg daily and gabapentin 300 mg 3 times daily. She seems to be interested in learning more about alcohol detox programs. She should follow up with psych as outpatient. - Time Time Spent: 50 to 70 Minutes - Inpatient Certification Based on my medical assessment, after consideration of the patient's comorbidities, presenting symptoms, or acuity I expect that the services needed warrant INPATIENT care.: Yes I certify that my determination is in accordance with my understanding of Medicare's requirements for reasonable and necessary INPATIENT services [42 CFR 412.3e].: Yes
--- NOTE | 2018-01-02 22:21 | RADIOLOGY REPORT (SQ) ---
EXAM DESCRIPTION: CT ABD/PELVIS WITH IV ONLY COMPLETED DATE/TIME: 01/02/2018 10:06 pm REASON FOR STUDY: Nausea/vomiting and abdominal pain/H/o alcoholism COMPARISON: None. TECHNIQUE: CT scan of the abdomen and pelvis performed using helical scanning technique with dynamic intravenous contrast injection. No oral contrast. Images reviewed with lung, soft tissue, and bone windows. Reconstructed coronal and sagittal MPR images reviewed. Delayed images for evaluation of the urinary system also acquired. All images stored on PACS. All CT scanners at this facility use dose modulation, iterative reconstruction, and/or weight based d osing when appropriate to reduce radiation dose to as low as reasonably achievable (ALARA). [facility]: Dose Right [facility]: CareDose [facility]: Dose Right [facility]: Teradose 4D [facility]: BayPackets CONTRAST TYPE AND DOSE: contrast/concentration: Isovue 370.00 mg/ml; Total Contrast Delivered: 68.0 ml; Total Saline Delivered: 30.0 ml RENAL FUNCTION: None required. The patient is less than 50 years old. RADIATION DOSE: CT Rad equipment meets quality standard of care and radiation dose reduction techniq ues were employed. CTDIvol: 4.9 mGy. DLP: 502 mGy-cm.. LIMITATIONS: None. FINDINGS: LOWER CHEST: No significant findings. No nodules or infiltrates. LIVER: Normal size. No masses. No dilated ducts. SPLEEN: Normal size. No focal lesions. PANCREAS: Peripancreatic fluid and fat stranding with fluid extending along the left gutter. No mass . No dilated pancreatic duct. Normal profusion. GALLBLADDER: No identified stones by CT criteria. No inflammatory changes to suggest cholecystitis. ADRENAL GLANDS: No significant masses or asymmetry. RIGHT KIDNEY AND URETER: No solid masses. No significant calcifications. No hydronephrosis or hyd roureter. LEFT KIDNEY AND URETER: No solid masses. No significant calcifications. No hydronephrosis or hydr oureter. AORTA AND VESSELS: No aneurysm. No dissection. Renal arteries, SMA, celiac without stenosis. RETROPERITONEUM: No retroperitoneal adenopathy, hemorrhage or masses. BOWEL AND PERITONEAL CAVITY: No masses or inflammatory changes. No free fluid or peritoneal masses. APPENDIX: Not visualized. PELVIS: Free fluid in the pelvis. The bladder is unremarkable. ABDOMINAL WALL: No masses. No hernias. BONES: No significant or acute findings. OTHER: No other significant finding. IMPRESSION: Acute pancreatitis with peripancreatic fluid, fluid extending along the left gutter, and free fluid in the pelvis. TECHNICAL DOCUMENTATION: JOB ID: [id number] Quality ID # [id number]: Final reports with documentation of one or more dose reduction techniques (e.g., Au tomated exposure control, adjustment of the mA and/or kV according to patient size, use of iterative reconstruction technique) 2010 [employer]- All Rights Reserved Reading location - IP/workstation name: [email or web address]
[2018-01-02] MEDS ORDERED: THIAMINE HCL 100 MG TABLET PO ONE (23:00)
[2018-01-02] MEDS: DOXAZOSIN MESYLATE 2 MG TABLET PO SCH (23:15)
[2018-01-02] MEDS: PANTOPRAZOLE SODIUM 40 MG VIAL IV SCH (23:19)
[2018-01-02] MEDS: FOLIC ACID 1 MG TABLET PO SCH (23:20)
[2018-01-02] MEDS: ACETAMINOPHEN 325 MG TABLET PO PRN (23:21)
[2018-01-02] MEDS: LORAZEPAM 0.5 MG TABLET PO PRN (23:22)
[2018-01-03] MEDS: MELATONIN 5 MG TABLET PO SCH ×2 (00:51→21:37)
[2018-01-03] MEDS: HYDROMORPHONE HCL INJ/PF 2 MG/ML AMPULE IV PRN ×6 (01:11→21:37)
[2018-01-03] MEDS: PROMETHAZINE HCL INJ 25 MG/1 ML VIAL IV PRN ×2 (01:52→06:52)
[2018-01-03] MEDS ORDERED: LORAZEPAM INJ 2 MG/1 ML VIAL IV ONE (02:30)
[2018-01-03] MEDS: LORAZEPAM 0.5 MG TABLET PO PRN ×2 (03:34→09:27)
[2018-01-03 07:31] LABS: HEMATOCRIT 32.2 % (36.0-47.0); HEMOGLOBIN 10.8 g/dL (12.0-15.5); MEAN CORPUSCULAR HEMOGLOBIN 30.3 pg (27.0-33.4); MEAN CORPUSCULAR HGB CONC 33.5 g/dL (32.0-36.0); MEAN CORPUSCULAR VOLUME 90 fl (80-97); PLATELET COUNT 224 10^3/uL (150-450); RED BLOOD COUNT 3.56 10^6/uL (3.72-5.28); RED CELL DISTRIBUTION WIDTH 22.2 % (11.5-14.0); WHITE BLOOD COUNT 5.5 10^3/uL (4.0-10.5)
[2018-01-03 07:53] LABS: ALANINE AMINOTRANSFERASE 32 U/L (9-52); ALKALINE PHOSPHATASE 40 U/L (38-126); ANION GAP 17 (5-19); ASPARTATE AMINO TRANSFERASE 48 U/L (14-36); BILIRUBIN,DIRECT 0.3 mg/dL (0.0-0.4); BILIRUBIN,TOTAL 0.4 mg/dL (0.2-1.3); BLOOD UREA NITROGEN 3 mg/dL (7-20); CALCIUM 8.2 mg/dL (8.4-10.2); CARBON DIOXIDE 17 mmol/L (22-30); CHLORIDE 102 mmol/L (98-107); GLUCOSE 98 mg/dL (75-110); POTASSIUM 3.6 mmol/L (3.6-5.0); SODIUM 136.1 mmol/L (137-145); TOTAL PROTEIN 6.7 g/dL (6.3-8.2); TRIGLYCERIDES 49 mg/dL (<150)
[2018-01-03 08:20] LABS: LIPASE 4261.2 U/L (23-300)
[2018-01-03] MEDS: THIAMINE HCL 100 MG TABLET PO SCH (09:27)
--- NOTE | 2018-01-03 15:37 | PDOC PROGRESS REPORT ---
Subjective Progress Note for:: 01/03/18 Subjective:: The patient is resting in bed. Overall she states that she is still having significant abdominal pain. Repeat labs revealed that her lipase actually worsened in spite of aggressive IV fluids. I discussed this diagnosis with her and we had a long discussion regarding her alcohol use. She usually has certain stressors that caused her to abuse alcohol. On an average day she states she drinks 3-4 beers. She states that she has been through alcohol withdrawal in the past when she has tried to quit drinking. Overall she states she continues to have a significant amount of abdominal pain. No nausea or vomiting. No chest pain or heart palpitations. No fever chills. She has not had a bowel movement yet. She states that she is voiding frequently due to the IV fluids Reason For Visit: ACUTE ALCOHOL PANCREATITIS Physical Exam Vital Signs: Temp Pulse Resp BP Pulse Ox 98.7 F 89 18 151/89 H 98 01/03/18 12:00 01/03/18 13:32 01/03/18 13:32 01/03/18 12:00 01/03/18 13:32 Intake & Output 01/02/18 01/03/18 01/04/18 06:59 06:59 06:59 Weight 66 kg General appearance: PRESENT: mild distress, well-developed, well-nourished Head exam: PRESENT: atraumatic, normocephalic Mouth exam: PRESENT: moist, tongue midline Respiratory exam: PRESENT: clear to auscultation luis. ABSENT: rales, rhonchi, wheezes Cardiovascular exam: PRESENT: RRR. ABSENT: diastolic murmur, rubs, systolic murmur GI/Abdominal exam: PRESENT: diminished bowel sounds, guarding, soft, tenderness Rectal exam: PRESENT: deferred Extremities exam: PRESENT: full ROM. ABSENT: calf tenderness, clubbing, pedal edema Musculoskeletal exam: PRESENT: ambulatory Neurological exam: PRESENT: alert, awake, oriented to person, oriented to place , oriented to time, oriented to situation, CN II-XII grossly intact. ABSENT: motor sensory deficit Psychiatric exam: PRESENT: flat affect, normal mood. ABSENT: homicidal ideation , suicidal ideation Skin exam: PRESENT: dry, intact, warm. ABSENT: cyanosis, rash Results Laboratory Results: 01/03/18 06:32 01/03/18 06:32 01/03/18 01/03/18 01/03/18 06:32 06:32 06:32 WBC 5.5 RBC 3.56 L Hgb 10.8 L Hct 32.2 L MCV 90 MCH 30.3 MCHC 33.5 RDW 22.2 H Plt Count 224 Sodium 136.1 L Potassium 3.6 Chloride 102 Carbon Dioxide 17 L Anion Gap 17 BUN 3 L Creatinine 0.44 L Est GFR ( Amer) > 60 Est GFR (Non-Af Amer) > 60 Glucose 98 Calcium 8.2 L Phosphorus 2.7 Total Bilirubin 0.4 AST 48 H ALT 32 Alkaline Phosphatase 40 Total Protein 6.7 Albumin 4.0 Triglycerides 49 Lipase 4261.2 H Impressions: Abdomen/Pelvis CT 01/02/18 00:00 IMPRESSION: Acute pancreatitis with peripancreatic fluid, fluid extending along the left gutter, and free fluid in the pelvis. Assessment & Plan - Diagnosis (1) Acute pancreatitis Qualifiers: Acute pancreatitis complication: unspecified Is this a current diagnosis for this admission?: Yes Plan: We will continue to rest the pancreas. She will remain n.p.o. with aggressive IV fluid hydration. Her pancreatitis is likely due to her heavy alcohol use (2) Alcohol abuse Is this a current diagnosis for this admission?: Yes Plan: The patient drinks 3 or 4 beers on a daily basis but drinks much more when she gets under any sort of stress. She has been under significant stress due to the of a family member recently which is been causing her to drink more often. She has been counseled regarding the need to quit drinking and she is voiced understanding (3) Alcohol withdrawal Is this a current diagnosis for this admission?: Yes Plan: She is a little anxious this afternoon. She states that she has been through alcohol withdrawal in the past. She does not really have a tremor but is becoming increasingly anxious according to the patient's friend. I am going to start her on scheduled IV Ativan for now and she will continue to have higher doses of IV Ativan as needed. (4) Bipolar disorder Is this a current diagnosis for this admission?: Yes Plan: She recieves Invega IM injection every month. (5) Anemia Is this a current diagnosis for this admission?: Yes Plan: She has had a precipitous drop in hemoglobin likely due to hemodilution (6) Hyponatremia Is this a current diagnosis for this admission?: Yes Plan: This is quite mild. She will have a chemistry panel drawn in the morning (7) Bacteria in urine Is this a current diagnosis for this admission?: Yes Plan: No evidence of infection. We will hold off on any treatment. (8) Full code status Is this a current diagnosis for this admission?: Yes - Time Time Spent with patient: 25-34 minutes - Inpatient Certification Medical Necessity: Need For IV Fluids - Inpatient hospitalization remains necessary. The patient has acute pancreatitis. Her lipase is actually worsened in spite of aggressive IV fluids. She is showing signs of potential pending alcohol withdrawal. Timing of disposition will be determined by her clinical course. She does state that she would like to go through alcohol withdrawal here in the hospital., Other
[2018-01-03] MEDS: LORAZEPAM INJ 2 MG/1 ML VIAL IV SCH (17:43)
[2018-01-03] MEDS: FOLIC ACID 1 MG TABLET PO SCH (21:37)
[2018-01-03] MEDS: PANTOPRAZOLE SODIUM 40 MG VIAL IV SCH (21:37)
[2018-01-03] MEDS: DOXAZOSIN MESYLATE 2 MG TABLET PO SCH (21:37)
[2018-01-04] MEDS: LORAZEPAM INJ 2 MG/1 ML VIAL IV SCH ×2 (03:02→10:17)
[2018-01-04] MEDS: ACETAMINOPHEN 325 MG TABLET PO PRN (06:30)
[2018-01-04 07:50] LABS: ABSOLUTE LYMPHOCYTES (AUTO) 0.8 10^3/uL (0.5-4.7); ABSOLUTE MONOCYTES (AUTO) 1.4 10^3/uL (0.1-1.4); ABSOLUTE NEUT (AUTO) 7.4 10^3/uL (1.7-8.2); BASOPHILS % (AUTO) 0.3 % (0-2); EOSINOPHILS % (AUTO) 0.1 % (0-6); HEMATOCRIT 33.4 % (36.0-47.0); HEMOGLOBIN 10.9 g/dL (12.0-15.5); LYMPHOCYTES % (AUTO) 7.8 % (13-45); MEAN CORPUSCULAR HGB CONC 32.7 g/dL (32.0-36.0); MEAN CORPUSCULAR VOLUME 92 fl (80-97); MONOCYTES % (AUTO) 14.9 % (3-13); PLATELET COUNT 247 10^3/uL (150-450); RED BLOOD COUNT 3.64 10^6/uL (3.72-5.28); RED CELL DISTRIBUTION WIDTH 20.9 % (11.5-14.0); SEGMENTED NEUTROPHILS % (AUTO) 76.9 % (42-78); TOTAL CELLS COUNTED % (AUTO) 100 %; WHITE BLOOD COUNT 9.6 10^3/uL (4.0-10.5)
[2018-01-04 08:11] LABS: ANION GAP 17 (5-19); BLOOD UREA NITROGEN 3 mg/dL (7-20); CARBON DIOXIDE 18 mmol/L (22-30); CHLORIDE 101 mmol/L (98-107); GLUCOSE 72 mg/dL (75-110); LIPASE 1808.2 U/L (23-300); POTASSIUM 3.5 mmol/L (3.6-5.0); SODIUM 136.1 mmol/L (137-145)
[2018-01-04] MEDS: MAGNESIUM SULFATE/D5W 1 GM/100 ML RTUPB IV SCH ×3 (10:17→14:57)
[2018-01-04] MEDS: THIAMINE HCL 100 MG TABLET PO SCH (10:18)
--- NOTE | 2018-01-04 17:04 | PDOC PROGRESS REPORT ---
Subjective Progress Note for:: 01/04/18 Subjective:: The patient is a 37-year-old -[place] female with a past medical history significant for heavy alcohol use and possible alcohol dependency. She has known bipolar disorder. She presented to the emergency room with acute abdominal pain as well as nausea and vomiting. She was found to have acute pancreatitis. She was admitted to the hospital and started on aggressive IV fluids. She was made n.p.o. Discussions were had with the patient and she does admit to drinking several beers a day on a daily basis. Recently due to the of a loved one she is drinking more. She states that she has had problems with shaking spells and early alcohol withdrawal when she has tried to quit drinking in the past. She was started on scheduled IV Ativan yesterday. Today when I saw the patient she is much better. She is still having abdominal pain but she has not required any pain medication since the night before. She is hungry and is requesting that we advance her diet. She has no anxiety or agitation and is not shaking at this point. She denies fever chills. No chest pain or heart palpitations. No nausea or vomiting. She has not had a bowel movement. She has frequent urination due to the IV fluids. Reason For Visit: ACUTE ALCOHOL PANCREATITIS Physical Exam Vital Signs: Temp Pulse Resp BP Pulse Ox 99.4 F 114 H 16 116/64 100 01/04/18 11:55 01/04/18 12:45 01/04/18 12:45 01/04/18 11:55 01/04/18 11:55 Intake & Output 01/03/18 01/04/18 01/05/18 06:59 06:59 06:59 Intake Total 1280 Balance 1280 Weight 66 kg 66 kg General appearance: PRESENT: no acute distress, well-developed, well-nourished Head exam: PRESENT: atraumatic, normocephalic Eye exam: PRESENT: conjunctiva pink, EOMI, PERRLA. ABSENT: scleral icterus Mouth exam: PRESENT: moist, tongue midline Respiratory exam: PRESENT: clear to auscultation luis. ABSENT: rales, rhonchi, wheezes Cardiovascular exam: PRESENT: RRR. ABSENT: diastolic murmur, rubs, systolic murmur GI/Abdominal exam: PRESENT: hyperactive bowel sounds, tenderness - Much less tender than yesterday. No guarding today.. ABSENT: guarding Rectal exam: PRESENT: deferred Extremities exam: PRESENT: full ROM. ABSENT: calf tenderness, clubbing, pedal edema Musculoskeletal exam: PRESENT: ambulatory Neurological exam: PRESENT: alert, awake, oriented to person, oriented to place , oriented to time, oriented to situation, CN II-XII grossly intact. ABSENT: motor sensory deficit Psychiatric exam: PRESENT: appropriate affect, normal mood. ABSENT: homicidal ideation, suicidal ideation Skin exam: PRESENT: dry, intact, warm. ABSENT: cyanosis, rash Results Laboratory Results: 01/04/18 06:17 01/04/18 06:17 01/04/18 01/04/18 06:17 06:17 WBC 9.6 RBC 3.64 L Hgb 10.9 L Hct 33.4 L MCV 92 MCH 30.0 MCHC 32.7 RDW 20.9 H Plt Count 247 Seg Neutrophils % 76.9 Lymphocytes % 7.8 L Monocytes % 14.9 H Eosinophils % 0.1 Basophils % 0.3 Absolute Neutrophils 7.4 Absolute Lymphocytes 0.8 Absolute Monocytes 1.4 Absolute Eosinophils 0.0 Absolute Basophils 0.0 Sodium 136.1 L Potassium 3.5 L Chloride 101 Carbon Dioxide 18 L Anion Gap 17 BUN 3 L Creatinine 0.53 Est GFR ( Amer) > 60 Est GFR (Non-Af Amer) > 60 Glucose 72 L Calcium 9.0 Magnesium 1.3 L Lipase 1808.2 H Impressions: Abdomen/Pelvis CT 01/02/18 00:00 IMPRESSION: Acute pancreatitis with peripancreatic fluid, fluid extending along the left gutter, and free fluid in the pelvis. Assessment & Plan - Diagnosis (1) Acute pancreatitis Qualifiers: Acute pancreatitis complication: unspecified Is this a current diagnosis for this admission?: Yes Plan: The patient is required no pain medication since the night before. Will order p.o. oxycodone for the patient. We will start her on clear liquids today. We will continue her IV fluids. (2) Alcohol abuse Is this a current diagnosis for this admission?: Yes Plan: The patient drinks 3 or 4 beers on a daily basis but drinks much more when she gets under any sort of stress. She has been under significant stress due to the of a family member recently which is been causing her to drink more often. She has been counseled regarding the need to quit drinking and she is voiced understanding (3) Alcohol withdrawal Is this a current diagnosis for this admission?: Yes Plan: Yesterday she was a little agitated with a mild tremor. She has had issues with alcohol withdrawal in the past but has never been hospitalized. She has never quit drinking long enough to go into full-blown alcohol withdrawal. She has been on scheduled Ativan. Will change this over to p.o. today as we are starting her on a diet. Hopefully this can be weaned off. (4) Bipolar disorder Is this a current diagnosis for this admission?: Yes Plan: She recieves Invega IM injection every month. (5) Anemia Is this a current diagnosis for this admission?: Yes Plan: She has had a precipitous drop in hemoglobin likely due to hemodilution (6) Hyponatremia Is this a current diagnosis for this admission?: Yes Plan: This is quite mild. She will have a chemistry panel drawn in the morning (7) Bacteria in urine Is this a current diagnosis for this admission?: Yes Plan: No evidence of infection. We will hold off on any treatment. (8) Full code status Is this a current diagnosis for this admission?: Yes - Time Time Spent with patient: 25-34 minutes - Inpatient Certification Medical Necessity: Need For IV Fluids, Other - Inpatient hospitalization remains necessary. The patient is clearly improving. We are going to start her on a clear liquid diet today. She will continue parenteral fluids. Timing of disposition will be determined by her clinical course
[2018-01-04] MEDS ORDERED: NORMAL SALINE 1000 ML 1,000 ML IV PRN (17:06)
[2018-01-04] MEDS: LORAZEPAM 0.5 MG TABLET PO SCH (17:32)
[2018-01-04] MEDS: MELATONIN 5 MG TABLET PO SCH (21:44)
[2018-01-04] MEDS: PANTOPRAZOLE SODIUM 40 MG VIAL IV SCH (21:44)
[2018-01-04] MEDS: FOLIC ACID 1 MG TABLET PO SCH (21:44)
[2018-01-04] MEDS: DOXAZOSIN MESYLATE 2 MG TABLET PO SCH (21:44)
[2018-01-05] MEDS: LORAZEPAM 0.5 MG TABLET PO SCH ×2 (02:17→09:25)
[2018-01-05 06:40] LABS: HEMATOCRIT 28.8 % (36.0-47.0); HEMOGLOBIN 9.5 g/dL (12.0-15.5); MEAN CORPUSCULAR HEMOGLOBIN 30.3 pg (27.0-33.4); MEAN CORPUSCULAR VOLUME 92 fl (80-97); PLATELET COUNT 227 10^3/uL (150-450); RED BLOOD COUNT 3.14 10^6/uL (3.72-5.28); RED CELL DISTRIBUTION WIDTH 21.1 % (11.5-14.0); WHITE BLOOD COUNT 7.5 10^3/uL (4.0-10.5)
[2018-01-05 06:55] LABS: ANION GAP 9 (5-19); BLOOD UREA NITROGEN 3 mg/dL (7-20); CALCIUM 8.6 mg/dL (8.4-10.2); CARBON DIOXIDE 25 mmol/L (22-30); CHLORIDE 110 mmol/L (98-107); GLUCOSE 112 mg/dL (75-110); POTASSIUM 3.4 mmol/L (3.6-5.0); SODIUM 143.7 mmol/L (137-145)
[2018-01-05 07:19] LABS: ABSOLUTE MONOCYTES # (MANUAL) 0.4 10^3/uL (0.1-1.4); ABSOLUTE NEUTROPHILS# (MANUAL) 5.2 10^3/uL (1.7-8.2); BASOPHILS % (MANUAL) 0 % (0-2); EOSINOPHILS % (MANUAL) 0 % (0-6); HYPOCHROMASIA 2+; LYMPHOCYTES % (MANUAL) 26 % (13-45); MONOCYTES % (MANUAL) 5 % (3-13); PLATELET CLUMPS PRESENT; POLYCHROMASIA SLIGHT; SEGMENTED NEUTROPHILS % (MAN) 69 % (42-78); TARGET CELLS SLIGHT; TOTAL CELLS COUNTED 100; TOXIC GRANULATION SLIGHT
[2018-01-05] MEDS: THIAMINE HCL 100 MG TABLET PO SCH (09:25)
[2018-01-05] MEDS: HYDROMORPHONE HCL INJ/PF 2 MG/ML AMPULE IV PRN ×2 (14:44→18:57)
[2018-01-05] MEDS ORDERED: DEXTROSE 40% GEL 15 GM TUBE PO PRN ×2 (14:53)
[2018-01-05] MEDS ORDERED: DEXTROSE 50%-WATER 25 GM/50 ML DISP.SYRIN IV PRN ×2 (14:53)
[2018-01-05] MEDS ORDERED: GLUCAGON,HUMAN RECOMB 1 MG INJ SUBCUT PRN (14:53)
[2018-01-05] MEDS: LORAZEPAM INJ 2 MG/1 ML VIAL IV SCH (22:51)
[2018-01-05] MEDS: OXYCODONE HCL IR 5 MG TABLET PO PRN (22:53)
[2018-01-06] MEDS: OXYCODONE HCL IR 5 MG TABLET PO PRN ×2 (05:44→18:20)
[2018-01-06 06:10] LABS: ALBUMIN 3.4 g/dL (3.5-5.0); ANION GAP 10 (5-19); BLOOD UREA NITROGEN 2 mg/dL (7-20); CALCIUM 8.7 mg/dL (8.4-10.2); CARBON DIOXIDE 27 mmol/L (22-30); CHLORIDE 107 mmol/L (98-107); GLUCOSE 104 mg/dL (75-110); LIPASE 898.2 U/L (23-300); PHOSPHORUS 1.5 mg/dL (2.5-4.5); POTASSIUM 3.2 mmol/L (3.6-5.0); SODIUM 143.8 mmol/L (137-145)
[2018-01-06] MEDS: LORAZEPAM INJ 2 MG/1 ML VIAL IV SCH ×2 (09:40→21:52)
[2018-01-06] MEDS ORDERED: POTASSIUM PHOS,M-BASIC-D-BASIC 60 MMOL in NORMAL SALINE 1000 ML 1,000 ML IV ONE (10:30)
[2018-01-06] MEDS: HYDROMORPHONE HCL INJ/PF 2 MG/ML AMPULE IV PRN ×3 (10:31→23:47)
--- NOTE | 2018-01-06 14:00 | PDOC PROGRESS REPORT ---
Subjective Progress Note for:: 01/06/18 Subjective:: States she has a headache, but her abdominal pain is improved Reason For Visit: ACUTE ALCOHOL PANCREATITIS Physical Exam Vital Signs: Temp Pulse Resp BP Pulse Ox 98.6 F 85 20 126/82 H 99 01/06/18 08:32 01/06/18 11:47 01/06/18 11:47 01/06/18 11:47 01/06/18 11:47 Intake & Output 01/05/18 01/06/18 01/07/18 06:59 06:59 06:59 Intake Total 3595 2576 Balance 3595 2576 Weight 141 lb 8.588 oz 140 lb 3.424 oz General appearance: PRESENT: no acute distress Respiratory exam: PRESENT: clear to auscultation luis Cardiovascular exam: PRESENT: RRR GI/Abdominal exam: PRESENT: soft, tenderness - Minimal epigastric. Notably decreased from yesterday Neurological exam: PRESENT: alert Psychiatric exam: PRESENT: appropriate affect Skin exam: PRESENT: dry, warm Results Laboratory Results: 01/05/18 05:55 01/06/18 05:25 01/06/18 05:25 Sodium 143.8 Potassium 3.2 L Chloride 107 Carbon Dioxide 27 Anion Gap 10 BUN 2 L Creatinine 0.45 L Est GFR ( Amer) > 60 Est GFR (Non-Af Amer) > 60 Glucose 104 Calcium 8.7 Phosphorus 1.5 L Magnesium 1.6 Albumin 3.4 L Lipase 898.2 H Impressions: Abdomen/Pelvis CT 01/02/18 00:00 IMPRESSION: Acute pancreatitis with peripancreatic fluid, fluid extending along the left gutter, and free fluid in the pelvis. Assessment & Plan - Diagnosis (1) Hypophosphatemia Is this a current diagnosis for this admission?: Yes Plan: Probably from inadequate intake. Replace. (2) Hypokalemia Is this a current diagnosis for this admission?: Yes Plan: Probably from inadequate intake. I will treat her hypophosphatemia with potassium phosphate and recheck in the morning (3) Acute alcoholic pancreatitis Qualifiers: Acute pancreatitis complication: unspecified Qualified Code(s): K85.20 - Alcohol induced acute pancreatitis without necrosis or infection Is this a current diagnosis for this admission?: Yes Plan: Try her on clear liquids again (4) Bipolar disorder Is this a current diagnosis for this admission?: Yes Plan: On depo-Invega
[2018-01-06] MEDS: DEXTROSE 5%-NORMAL SALINE 1,000 ML IV PRN (21:58)
[2018-01-06] MEDS: HYDRALAZINE HCL INJ/PF 20 MG/1 ML SDV IV PRN (23:52)
[2018-01-07] MEDS: HYDROMORPHONE HCL INJ/PF 2 MG/ML AMPULE IV PRN (03:34)
[2018-01-07 05:54] LABS: ALBUMIN 3.5 g/dL (3.5-5.0); ANION GAP 13 (5-19); BLOOD UREA NITROGEN 2 mg/dL (7-20); CALCIUM 9.5 mg/dL (8.4-10.2); CARBON DIOXIDE 28 mmol/L (22-30); CHLORIDE 105 mmol/L (98-107); GLUCOSE 136 mg/dL (75-110); LIPASE 869.6 U/L (23-300); PHOSPHORUS 3.1 mg/dL (2.5-4.5); POTASSIUM 3.4 mmol/L (3.6-5.0); SODIUM 146.1 mmol/L (137-145)
[2018-01-07] MEDS: DEXTROSE 5%-NORMAL SALINE 1,000 ML IV PRN (06:18)
[2018-01-07] MEDS: OXYCODONE HCL IR 5 MG TABLET PO PRN ×2 (06:26→20:00)
[2018-01-07] MEDS: LORAZEPAM INJ 2 MG/1 ML VIAL IV SCH (08:00)
[2018-01-07] MEDS: KETOROLAC TROMETHAMINE INJ/PF 30 MG/1 ML SDV INJ PRN ×2 (09:03→15:40)
[2018-01-07] MEDS: MAGNESIUM SULFATE/D5W 1 GM/100 ML RTUPB IV SCH ×2 (12:02→13:15)
[2018-01-07] MEDS ORDERED: ONDANSETRON HCL INJ/PF 4 MG/2 ML SDV IV PRN (12:50)
--- NOTE | 2018-01-07 12:56 | PDOC PROGRESS REPORT ---
Subjective Progress Note for:: 01/07/18 Subjective:: States she still has a headache, but her abdominal pain has resolved. Tolerating a liquid diet Reason For Visit: ACUTE ALCOHOL PANCREATITIS Physical Exam Vital Signs: Temp Pulse Resp BP Pulse Ox 98.3 F 75 12 165/99 H 100 01/07/18 11:47 01/07/18 11:47 01/07/18 11:47 01/07/18 11:47 01/07/18 11:47 Intake & Output 01/06/18 01/07/18 01/08/18 06:59 06:59 06:59 Intake Total 2576 3041 Balance 2576 3041 Weight 140 lb 3.424 oz 143 lb 8.335 oz General appearance: PRESENT: no acute distress Respiratory exam: PRESENT: clear to auscultation luis Cardiovascular exam: PRESENT: RRR GI/Abdominal exam: PRESENT: soft. ABSENT: tenderness Musculoskeletal exam: PRESENT: normal inspection Neurological exam: PRESENT: alert Psychiatric exam: PRESENT: appropriate affect Skin exam: PRESENT: warm Results Laboratory Results: 01/05/18 05:55 01/07/18 04:12 01/07/18 04:12 Sodium 146.1 H Potassium 3.4 L Chloride 105 Carbon Dioxide 28 Anion Gap 13 BUN 2 L Creatinine 0.39 L Est GFR ( Amer) > 60 Est GFR (Non-Af Amer) > 60 Glucose 136 H Calcium 9.5 Phosphorus 3.1 Magnesium 1.5 L Albumin 3.5 Lipase 869.6 H Impressions: Abdomen/Pelvis CT 01/02/18 00:00 IMPRESSION: Acute pancreatitis with peripancreatic fluid, fluid extending along the left gutter, and free fluid in the pelvis. Assessment & Plan - Diagnosis (1) Hypophosphatemia Is this a current diagnosis for this admission?: Yes Plan: Corrected. Continue to monitor (2) Hypokalemia Is this a current diagnosis for this admission?: Yes Plan: Mild. Continue to monitor (3) Acute alcoholic pancreatitis Qualifiers: Acute pancreatitis complication: unspecified Qualified Code(s): K85.20 - Alcohol induced acute pancreatitis without necrosis or infection Is this a current diagnosis for this admission?: Yes Plan: Try her on a regular diet (4) Bipolar disorder Is this a current diagnosis for this admission?: Yes Plan: On depo-Invega. Restart her Neurontin which may be contributing to her headache.
[2018-01-07] MEDS: GABAPENTIN 300 MG CAPSULE PO SCH ×2 (13:17→21:29)
[2018-01-07] MEDS: HYDRALAZINE HCL INJ/PF 20 MG/1 ML SDV IV PRN (23:35)
[2018-01-08] MEDS: KETOROLAC TROMETHAMINE INJ/PF 30 MG/1 ML SDV INJ PRN ×2 (00:42→08:08)
[2018-01-08 06:11] LABS: ALBUMIN 3.5 g/dL (3.5-5.0); ANION GAP 12 (5-19); BLOOD UREA NITROGEN 3 mg/dL (7-20); CALCIUM 9.6 mg/dL (8.4-10.2); CARBON DIOXIDE 28 mmol/L (22-30); CHLORIDE 105 mmol/L (98-107); GLUCOSE 117 mg/dL (75-110); LIPASE 912.8 U/L (23-300); PHOSPHORUS 3.9 mg/dL (2.5-4.5); POTASSIUM 3.2 mmol/L (3.6-5.0); SODIUM 144.6 mmol/L (137-145)
[2018-01-08] MEDS: GABAPENTIN 300 MG CAPSULE PO SCH (06:51)
[2018-01-08] MEDS: HYDROMORPHONE HCL INJ/PF 2 MG/ML AMPULE IV PRN (20:51)
[2018-01-08] MEDS: TRAZODONE HCL 50 MG TABLET PO PRN (23:58)
[2018-01-09] MEDS: POTASSI CL 40 MEQ/D5-1/2NS 1L 40 MEQ/1,000 ML RTUINJ IV PRN ×2 (00:26→15:39)
[2018-01-09 06:13] LABS: ALBUMIN 3.3 g/dL (3.5-5.0); ANION GAP 10 (5-19); BLOOD UREA NITROGEN 3 mg/dL (7-20); CALCIUM 9.1 mg/dL (8.4-10.2); CARBON DIOXIDE 29 mmol/L (22-30); CHLORIDE 105 mmol/L (98-107); GLUCOSE 118 mg/dL (75-110); LIPASE 785.1 U/L (23-300); PHOSPHORUS 3.9 mg/dL (2.5-4.5); POTASSIUM 3.7 mmol/L (3.6-5.0); SODIUM 143.5 mmol/L (137-145)
[2018-01-09] MEDS: MAGNESIUM SULFATE/D5W 1 GM/100 ML RTUPB IV SCH ×2 (10:13→13:12)
[2018-01-09] MEDS: HYDROMORPHONE HCL INJ/PF 2 MG/ML AMPULE IV PRN (10:45)
--- NOTE | 2018-01-09 12:42 | PDOC PROGRESS REPORT ---
Subjective Progress Note for:: 01/09/18 Subjective:: Abdominal pain has resolved again. No new complaints. Reason For Visit: ACUTE ALCOHOL PANCREATITIS Physical Exam Vital Signs: Temp Pulse Resp BP Pulse Ox 98.8 F 63 18 152/86 H 99 01/09/18 08:00 01/09/18 08:00 01/09/18 08:00 01/09/18 08:00 01/09/18 08:00 Intake & Output 01/08/18 01/09/18 01/10/18 06:59 06:59 06:59 Intake Total 2235 1636 Balance 2235 1636 Weight 144 lb 9.6 oz 140 lb 14.4 oz General appearance: PRESENT: no acute distress Respiratory exam: PRESENT: clear to auscultation luis Cardiovascular exam: PRESENT: rubs GI/Abdominal exam: PRESENT: soft Neurological exam: PRESENT: alert Psychiatric exam: PRESENT: appropriate affect Skin exam: PRESENT: warm Results Laboratory Results: 01/05/18 05:55 01/09/18 04:51 01/09/18 04:51 Sodium 143.5 Potassium 3.7 Chloride 105 Carbon Dioxide 29 Anion Gap 10 BUN 3 L Creatinine 0.41 L Est GFR ( Amer) > 60 Est GFR (Non-Af Amer) > 60 Glucose 118 H Calcium 9.1 Phosphorus 3.9 Magnesium 1.4 L Albumin 3.3 L Lipase 785.1 H Impressions: Abdomen/Pelvis CT 01/02/18 00:00 IMPRESSION: Acute pancreatitis with peripancreatic fluid, fluid extending along the left gutter, and free fluid in the pelvis. Assessment & Plan - Diagnosis (1) Acute alcoholic pancreatitis Qualifiers: Acute pancreatitis complication: unspecified Qualified Code(s): K85.20 - Alcohol induced acute pancreatitis without necrosis or infection Is this a current diagnosis for this admission?: Yes Plan: Start her back on clears again (2) Bipolar disorder Is this a current diagnosis for this admission?: Yes Plan: On depo-Invega which is due on the fourth. (3) Hypomagnesemia Is this a current diagnosis for this admission?: Yes Plan: Replace
[2018-01-09] MEDS: GABAPENTIN 300 MG CAPSULE PO SCH ×2 (13:13→22:01)
[2018-01-09] MEDS ORDERED: ACETAMINOPHEN 325 MG TABLET PO PRN (18:47)
[2018-01-10] MEDS: POTASSI CL 40 MEQ/D5-1/2NS 1L 40 MEQ/1,000 ML RTUINJ IV PRN (02:05)
[2018-01-10] MEDS: TRAZODONE HCL 50 MG TABLET PO PRN (04:58)
[2018-01-10] MEDS: GABAPENTIN 300 MG CAPSULE PO SCH ×2 (05:01→13:38)
[2018-01-10 06:40] LABS: ALBUMIN 3.7 g/dL (3.5-5.0); ANION GAP 11 (5-19); BLOOD UREA NITROGEN 2 mg/dL (7-20); CALCIUM 9.7 mg/dL (8.4-10.2); CARBON DIOXIDE 28 mmol/L (22-30); CHLORIDE 108 mmol/L (98-107); GLUCOSE 117 mg/dL (75-110); LIPASE 983.3 U/L (23-300); PHOSPHORUS 3.5 mg/dL (2.5-4.5); POTASSIUM 4.1 mmol/L (3.6-5.0); SODIUM 146.7 mmol/L (137-145)
--- NOTE | 2018-01-10 11:50 | PDOC PROGRESS REPORT ---
Subjective Progress Note for:: 01/10/18 Subjective:: Denies abdominal pain. Tolerating liquid diet Reason For Visit: ACUTE ALCOHOL PANCREATITIS Physical Exam Vital Signs: Temp Pulse Resp BP Pulse Ox 98.3 F 71 16 133/82 H 100 01/10/18 07:51 01/10/18 07:51 01/10/18 07:51 01/10/18 07:51 01/10/18 07:51 Intake & Output 01/09/18 01/10/18 01/11/18 06:59 06:59 06:59 Intake Total 1636 1040 Balance 1636 1040 Weight 140 lb 14.4 oz 141 lb 5.061 oz General appearance: PRESENT: no acute distress Respiratory exam: PRESENT: clear to auscultation luis Cardiovascular exam: PRESENT: RRR GI/Abdominal exam: PRESENT: soft Extremities exam: ABSENT: other - No edema Neurological exam: PRESENT: alert Psychiatric exam: PRESENT: appropriate affect Skin exam: PRESENT: warm Results Laboratory Results: 01/05/18 05:55 01/10/18 06:06 01/10/18 06:06 Sodium 146.7 H Potassium 4.1 Chloride 108 H Carbon Dioxide 28 Anion Gap 11 BUN 2 L Creatinine 0.43 L Est GFR ( Amer) > 60 Est GFR (Non-Af Amer) > 60 Glucose 117 H Calcium 9.7 Phosphorus 3.5 Magnesium 1.7 Albumin 3.7 Lipase 983.3 H Impressions: Abdomen/Pelvis CT 01/02/18 00:00 IMPRESSION: Acute pancreatitis with peripancreatic fluid, fluid extending along the left gutter, and free fluid in the pelvis. Assessment & Plan - Diagnosis (1) Acute alcoholic pancreatitis Qualifiers: Acute pancreatitis complication: unspecified Qualified Code(s): K85.20 - Alcohol induced acute pancreatitis without necrosis or infection Is this a current diagnosis for this admission?: Yes Plan: Try regular food again (2) Bipolar disorder Is this a current diagnosis for this admission?: Yes Plan: On depo-Invega which is due on the fourth.
[2018-01-10 16:28] VITALS: BP 138/92
--- NOTE | 2018-01-10 17:05 | PDOC DISCHARGE SUMMARY ---
General - Admit/Disc Date/PCP Admission Date/Primary Care Provider: 01/02/18 21:08 Discharge Date: 01/10/18 - Discharge Diagnosis (1) Acute alcoholic pancreatitis Is this a current diagnosis for this admission?: Yes Summary: Very slow resolution, but now tolerating a regular diet (2) Bipolar disorder Is this a current diagnosis for this admission?: Yes Summary: Continue medications as prior to admission - Additional Information Discharge Diet: As Tolerated Discharge Activity: Activity As Tolerated Home Medications: Gabapentin 300 mg PO Q8 01/02/18 Prazosin HCl 1 mg PO QHS 01/02/18 Melatonin 10 mg PO QHS 01/03/18 Paliperidone Palmitate [Invega Trinza] 156 mg IM [id number] 01/03/18 History of Present Illness Patient complains of: Nausea and vomiting History of Present Illness: CHRISTINE RODGERS is a 37 year old female with history of alcohol use (possible dependency) and bipolar disorder was admitted with above-mentioned complaints. According to the patient, she usually drinks 2-3 beers a day about 3 times a week but since 12/30/2017 she has been drinking 3-4 beers a day after a . She admits to having an "alcohol problem" but seems to minimize the amount ingested. She denies any drug abuse. She said that she started having epigastric pain radiating down to the periumbilical area on the left side and flank few days ago. The pain was sharp, intermittent,10/10 in intensity which did not improve with BC powder. She was also feeling nauseous and she vomited multiple times. The last time she vomited was today with clear, nonbloody vomitus. She has been having diarrhea as well with a small, loose nonbloody stool today. She has a very poor appetite for the last several days. She denies any fever or chills or any shortness of breath but complains of some stabbing chest pain, no heartburns. She denies any urinary symptoms but she complains of generalized weakness. In the ED, her temperature was 97.7, heart rate 76, respiratory rate 16, blood pressure 129/79 with oxygen saturation 99% on room air. Her WBC was 5.4 with AST /ALT of 68/32 and lipase 3951. Her alcohol level was less than 10. UA was positive. She was started on normal saline and was given 15 mg IV Toradol x1, 0.5 mg IV Dilaudid x2 and 1 mg IV Dilaudid x1 with some improvement in her abdominal pain down to 6/10. Hospital Course Hospital Course: She was put on complete bowel rest, hydration was maintained with IV fluids, IV pain medications were provided as were IV antiemetics. When her pain resolved with the tried advancing her diet. The first 2 times we tried her pain returned , but yesterday she was started on clears, today advanced to regular diet. She continues to be pain-free and will be discharged home. Physical Exam Vital Signs: Temp Pulse Resp BP Pulse Ox 99.1 F 66 18 138/92 H 100 01/10/18 16:21 01/10/18 16:21 01/10/18 16:21 01/10/18 16:21 01/10/18 16:21 Intake & Output 01/09/18 01/10/18 01/11/18 06:59 06:59 06:59 Intake Total 1636 1040 1100 Balance 1636 1040 1100 Weight 140 lb 14.4 oz 141 lb 5.061 oz General appearance: PRESENT: no acute distress Respiratory exam: PRESENT: clear to auscultation luis Cardiovascular exam: PRESENT: RRR GI/Abdominal exam: PRESENT: soft. ABSENT: tenderness Neurological exam: PRESENT: alert Psychiatric exam: PRESENT: appropriate affect Skin exam: PRESENT: warm Results Laboratory Results: 01/05/18 05:55 01/10/18 06:06 01/10/18 06:06 Sodium 146.7 H Potassium 4.1 Chloride 108 H Carbon Dioxide 28 Anion Gap 11 BUN 2 L Creatinine 0.43 L Est GFR ( Amer) > 60 Est GFR (Non-Af Amer) > 60 Glucose 117 H Calcium 9.7 Phosphorus 3.5 Magnesium 1.7 Albumin 3.7 Lipase 983.3 H Impressions: Abdomen/Pelvis CT 01/02/18 00:00 IMPRESSION: Acute pancreatitis with peripancreatic fluid, fluid extending along the left gutter, and free fluid in the pelvis. Qualifiers - * PATIENT BEING DISCHARGED WITH ANY OF THE FOLLOWING DIAGNOSIS: No
== END 2018-01-10 19:15 | disposition home or self-care (01) | DRG 439 ==
LOC: ER 15:17 → EH 21:08 → 5 01-03 01:30 → 2N 01-10 04:12
PROVIDERS: ADMIT Internal Medicine Geriatric Medicine; ATTEND Internal Medicine Geriatric Medicine
PROC: 3E0234Z Introduction of Serum, Toxoid and Vaccine into Muscle, Percutaneous Approach (ICD-10-PCS; principal; 2018-01-02)
DX: K85.20 Alcohol induced acute pancreatitis without necrosis or infection (principal); E87.1 Hypo-osmolality and hyponatremia; F31.9 Bipolar disorder, unspecified; M19.90 Unspecified osteoarthritis, unspecified site; F32.9 Major depressive disorder, single episode, unspecified; F43.10 Post-traumatic stress disorder, unspecified; D64.9 Anemia, unspecified; E83.39 Other disorders of phosphorus metabolism; F41.9 Anxiety disorder, unspecified; F20.9 Schizophrenia, unspecified; Z82.61 Family history of arthritis; Z83.3 Family history of diabetes mellitus
CPT/HCPCS: 36415; 74177; 80048; 80053; 80069; 80307; 81001; 81025; 83690; 83735; 84100; 84478; 85025; 85027; 96372; 96374; 96375; 99285; J0360; J1170; J1885; J2060; J2405; J2550; J3010; J3475; J3480; J3490; J7030; S0164

== ENCOUNTER 2018-08-11 23:18 | Emergency (ER) | payer SELFPAY ==
[2018-08-11] MEDS ORDERED: NORMAL SALINE 1000 ML 1,000 ML IV ONE (23:35)
--- NOTE | 2018-08-11 23:42 | ER Document Report ---
ED General - General Stated Complaint: POSS ETOH Time Seen by Provider: 08/11/18 23:19 Notes: Patient is a 37-year-old female who presents with alcohol intoxication. Brought in by paramedics. Patient is unsure who called the ambulance. Medics reported that the brother called the EMS because patient has a history of bipolar and has not been taking her meds but does also drink a lot of alcohol today. She has a history of alcoholism as well. She is been here before for acute pancreatitis. She has been here for psychiatric issues as well. Patient currently has some depression. She denies any thoughts of suicide. No fevers. No vomiting. No diarrhea. No other complaints at this time. TRAVEL OUTSIDE OF THE [place] IN LAST 30 DAYS: No - Related Data Allergies/Adverse Reactions: No Known Allergies Allergy (Verified 06/27/17 12:56) Past Medical History - Social History Smoking Status: Never Smoker Frequency of alcohol use: None Drug Abuse: None Family History: Arthritis, Other - RA mother. denies: CAD, COPD, CVA, DM, Hyperlipidemia, Hypertension, Malignancy, Thyroid Disfunction Pulmonary Medical History: Reports: Hx Bronchitis Renal/ Medical History: Denies: Hx Peritoneal Dialysis Musculoskeletal Medical History: Reports Hx Arthritis, Reports Hx Musculoskeletal Deformity, Reports Hx Musculoskeletal Trauma Psychiatric Medical History: Reports: Hx Anxiety, Hx Bipolar Disorder, Hx Depression, Hx Post Traumatic Stress Disorder, Hx Schizophrenia Review of Systems - Review of Systems Notes: My Normal Review Basic REVIEW OF SYSTEMS: CONSTITUTIONAL : Denies fever, chills, or sweats. Denies recent illness. EENT: Denies eye, ear, throat, or mouth pain or symptoms. Denies nasal or sinus congestion. CARDIOVASCULAR: Denies chest pain. RESPIRATORY: Denies cough, cold, or chest congestion. Denies shortness of breath, difficulty breathing, or wheezing. GASTROINTESTINAL: Denies abdominal pain. Denies nausea, vomiting, or diarrhea. GENITOURINARY: Denies difficulty urinating, painful urination, burning, frequency, or blood in urine. FEMALE GENITOURINARY: Denies vaginal bleeding, abnormal or irregular periods. MUSCULOSKELETAL: Denies neck or back pain or joint pain or swelling. SKIN: Denies rash or skin lesions. NEUROLOGICAL: Denies altered mental status or loss of consciousness. PSYCHIATRIC: Depression. No suicidal thoughts. ALL OTHER SYSTEMS REVIEWED AND NEGATIVE. Physical Exam - Vital signs Vitals: Temp Pulse Resp BP Pulse Ox 98.5 F 75 20 135/70 H 100 08/12/18 06:04 08/12/18 06:04 08/12/18 06:04 08/12/18 06:04 08/12/18 06:04 - Notes Notes: General Appearance: Well nourished, alert, cooperative, no acute distress, no obvious discomfort. Vitals: reviewed, See vital signs table. Head: no swelling or tenderness to the head Eyes: PERRL, EOMI, Conjuctiva clear Mouth: No decreasd moisture Lungs: No wheezing, No rales, No rhonci, No accessory muscle use, good air exchange bilaterally. Heart: Normal rate, Regular rythm, No murmur, no rub Abdomen: Normal BS, soft, No rigidity, No abdominal tenderness to palpation, No guarding, no rebound, no abdominal masses, no organomegaly Extremities: strength 5/5 in all extremities, good pulses in all extremities, no swelling or tenderness in the extremities, no edema. Skin: warm, dry, appropriate color, no rash Neuro: speech clear, patient is obviously intoxicated. She does answer questions appropriately. She does smell of alcohol. She is lying in bed but have not tested her gait as the patient appears likely be too intoxicated to ambulate appropriately. Patient does have some nystagmus. Cranial nerves II through XII are otherwise intact. Course - Re-evaluation Re-evalutation: 08/12/18 06:12 She is now much more awake and alert. She answers questions appropriately. She does have very flat affect. She does admit that she has depression. She admits she has not been taking her bipolar medications. She denies suicidal ideations at this time. She is agreeable to speaking with mental health this morning about her depression and whether or not she needs any medication changes she says she does not like taking her meds because they make her feel "unwell". She currently is well-appearing without any tremor or signs of withdrawal. Dictation of this chart was performed using voice recognition software; therefore, there may be some unintended grammatical errors. 08/12/18 06:13 - Vital Signs Vital signs: Temp Pulse Resp BP Pulse Ox 98.5 F 75 20 135/70 H 100 08/12/18 06:04 08/12/18 06:04 08/12/18 06:04 08/12/18 06:04 08/12/18 06:04 - Laboratory Result Diagrams: 08/12/18 00:40 08/12/18 00:40 Laboratory results interpreted by me: 08/12/18 08/12/18 00:40 00:40 Sodium 149.6 H Carbon Dioxide 21 L Anion Gap 23 H Glucose 111 H Calcium 10.4 H AST 70 H Total Protein 9.1 H Albumin 5.3 H Salicylates < 1.0 L Acetaminophen < 10 L Serum Alcohol 389 H* - EKG Interpretation by Me Additional EKG results interpreted by me: 08/12/18 01:17 EKG is reviewed and interpreted by me. EKG shows sinus rhythm with rate of [address] segment elevation or depression. No ischemic T wave inversions. No interval, QRS duration are within normal range. QTc interval slightly prolonged. Old EKG for comparison is from May 05, 2017. Discharge - Discharge Clinical Impression: Alcohol intoxication Qualifiers: Complication of substance-induced condition: uncomplicated Qualified Code(s): F10.920 - Alcohol use, unspecified with intoxication, uncomplicated Depression Qualifiers: Depression Type: unspecified Qualified Code(s): F32.9 - Major depressive disorder, single episode, unspecified
[2018-08-12 00:32] LABS: URINE AMPHETAMINES SCREEN NEGATIVE; URINE BARBITURATES SCREEN NEGATIVE; URINE BENZODIAZEPINES SCREEN NEGATIVE; URINE COCAINE SCREEN NEGATIVE; URINE MARIJUANA (THC) SCREEN UNCONFIRMED POSITIVE; URINE METHADONE SCREEN NEGATIVE; URINE PHENCYCLIDINE SCREEN NEGATIVE
[2018-08-12 00:55] LABS: ABSOLUTE BASOPHILS # (AUTO) 0.1 10^3/uL (0.0-0.2); ABSOLUTE MONOCYTES (AUTO) 0.4 10^3/uL (0.1-1.4); ABSOLUTE NEUT (AUTO) 2.1 10^3/uL (1.7-8.2); BASOPHILS % (AUTO) 1.2 % (0-2); EOSINOPHILS % (AUTO) 0.5 % (0-6); HEMATOCRIT 37.3 % (36.0-47.0); HEMOGLOBIN 12.6 g/dL (12.0-15.5); LYMPHOCYTES % (AUTO) 44.6 % (13-45); MEAN CORPUSCULAR HEMOGLOBIN 32.5 pg (27.0-33.4); MEAN CORPUSCULAR HGB CONC 33.9 g/dL (32.0-36.0); MEAN CORPUSCULAR VOLUME 96 fl (80-97); PLATELET COUNT 309 10^3/uL (150-450); RED BLOOD COUNT 3.88 10^6/uL (3.72-5.28); RED CELL DISTRIBUTION WIDTH 13.8 % (11.5-14.0); SEGMENTED NEUTROPHILS % (AUTO) 45.7 % (42-78); TOTAL CELLS COUNTED % (AUTO) 100 %; WHITE BLOOD COUNT 4.6 10^3/uL (4.0-10.5)
[2018-08-12 01:08] LABS: ALANINE AMINOTRANSFERASE 19 U/L (9-52); ALBUMIN 5.3 g/dL (3.5-5.0); ALKALINE PHOSPHATASE 54 U/L (38-126); ASPARTATE AMINO TRANSFERASE 70 U/L (14-36); BILIRUBIN,DIRECT 0.2 mg/dL (0.0-0.4); BILIRUBIN,TOTAL 0.2 mg/dL (0.2-1.3); BLOOD UREA NITROGEN 7 mg/dL (7-20); CALCIUM 10.4 mg/dL (8.4-10.2); GLUCOSE 111 mg/dL (75-110); LIPASE 165.7 U/L (23-300); POTASSIUM 4.4 mmol/L (3.6-5.0); TOTAL PROTEIN 9.1 g/dL (6.3-8.2)
[2018-08-12 01:10] LABS: ACETAMINOPHEN < 10 ug/mL (10-30); SALICYLATE < 1.0 mg/dL (2.0-20.0)
[2018-08-12 01:12] LABS: CARBON DIOXIDE 21 mmol/L (22-30); CHLORIDE 106 mmol/L (98-107); SODIUM 149.6 mmol/L (137-145)
[2018-08-12 01:13] LABS: ANION GAP 23 (5-19)
--- NOTE | 2018-08-12 07:51 | EKG REPORT ---
SEVERITY:- BORDERLINE ECG - SINUS RHYTHM BORDERLINE PROLONGED QT INTERVAL : Confirmed by: Geovani Kemp MD 12-Aug-2018 07:51:20
--- NOTE | 2018-08-12 09:38 | PSYCHOLOGICAL NOTE ---
Psych Note - Psych Note Date seen by psych provider: 08/12/18 Time seen by psych provider: 07:30 Psych Note: Reason for Consult: substance abuse Patient is a 37-year-old female who presents with alcohol intoxication. Patient reports she only drinks about 3 beers a day. when clinician pointed pout they patient's blood alcohol was too high for only 3 beers, the patient then stated she might have had some wine too. She disclosed that she is in a "group" to help her with her sobriety. She denies major issues with detox; 'i go through withdrawal like the shakes and anxiety, but I have never had an issue with seizures." She states she relapsed 2 weeks ago. Patient is alert and orientated to person, place time and circumstance. Mood is euthymic with congruent affect. Patient denies suicidal and homicidal ideation. Delusions are absent and behaviour is congruent with an intake reality based presentation (ie organized and linear thought processes). Eye contact was well maintained. Conversational speech is within normal rate tone and prosody. Intellectual abilities appear to be average range. Attention and concentration are fair. Insight, judgment and impulse control are historically poor due to substance abuse. chart review conducted: Patient has a long history of daily ETOH, as well as multiple arrests. no medication recommendations at this time 303.90 (F10.20) Alcohol Abuse, Severe R/O Bipolar Disorder Impression\\plan: Patient is cleared from acute psychiatric services. Patient does not meet IVC criteria per [place] GS 122C; she is no longer under the influence of alcohol. Patient has been seen multiple times in the past with similar etiology. Patient states she is part of a group from sobriety and just relapsed 2 weeks ago. She denies wanting assistance with detox. Patient was provided detox and substance abuse treatment providers for the local area in case she changes her mind. Dr. Lea was consulted on the care and management of this patient attending physician is in agreement with recommendations and disposition.
[2018-08-12 14:25] VITALS: BP 108/78
--- NOTE | 2018-08-12 15:37 | ER Document Report ---
Doctor's Note Notes: 08/12/18 15:35 Rounds: Chart reviewed and patient interviewed. Patient is being evaluated for bipolar disorder and depression and suicidal ideation as well as significant alcohol abuse. Her vital signs are all essentially normal. Her labs were normal with the exception of her blood alcohol being 389 and being positive for marijuana. Patient appears to be medically stable for transfer or discharge. Patrick Vu MD
== END 2018-08-12 14:24 | disposition home or self-care (01) ==
LOC: ER 23:18
DX: F10.920 Alcohol use, unspecified with intoxication, uncomplicated (principal); F32.9 Major depressive disorder, single episode, unspecified; Y90.8 Blood alcohol level of 240 mg/100 ml or more
CPT/HCPCS: 93005; 99285; 96360; 36415; 80307 ×4; 83690; 84703; 85025; 80053; 93010; J7030

== ENCOUNTER 2018-08-23 14:17 | Inpatient (IN) | payer SELFPAY ==
[2018-08-23] MEDS ORDERED: ACETAMINOPHEN 325 MG TABLET PO ONE (14:39)
--- NOTE | 2018-08-23 15:42 | ER Document Report ---
ED Medical Screen (RME) - General Chief Complaint: Abdominal Pain Stated Complaint: ABDOMINAL PAIN Time Seen by Provider: 08/23/18 15:34 Notes: Patient is a 37-year-old female that presents to the emergency department for chief complaint of epigastric abdominal pain, nausea and vomiting. Patient states that her symptoms started yesterday, she tried taking ibuprofen, her symptoms did not improve so she came to the ED today. Denies any diarrhea, or lower abdominal pain. She also denies any dysuria or hematuria. Her last menstrual period was at the end of June.. ROS: Other than noted above, the 12 point review of systems was reviewed with the patient and were negative, all pertinent findings are included in the HPI. PHYSICAL EXAMINATION: Vital signs reviewed. GENERAL: Patient appears uncomfortable, but in no acute distress HEAD: Atraumatic, normocephalic. EYES: Pupils equal round extraocular movements intact, conjunctiva are normal. ENT: Nares patent NECK: Normal range of motion CV: Heart regular rate and rhythm LUNGS: No respiratory distress Abdomen: Epigastric tenderness with palpation. Musculoskeletal: Normal range of motion NEUROLOGICAL: Normal speech PSYCH: Normal mood, normal affect. MDM: Patient seen and examined for rapid initial assessment. Vital signs reviewed. A comprehensive ED assessment and evaluation of the patient, analysis of test results and completion of the medical decision making process will be conducted by additional ED providers. *Note is created using voice recognition software and may contain spelling, syntax or grammatical errors. TRAVEL OUTSIDE OF THE [place] IN LAST 30 DAYS: No - Related Data Allergies/Adverse Reactions: No Known Allergies Allergy (Verified 06/27/17 12:56) Past Medical History - Social History Chew tobacco use (# tins/day): No Frequency of alcohol use: Occasional Drug Abuse: None Pulmonary Medical History: Reports: Hx Bronchitis Renal/ Medical History: Denies: Hx Peritoneal Dialysis Musculoskeltal Medical History: Reports Hx Arthritis, Reports Hx Musculoskeletal Deformity, Reports Hx Musculoskeletal Trauma Psychiatric Medical History: Reports: Hx Anxiety, Hx Bipolar Disorder, Hx Depression, Hx Post Traumatic Stress Disorder, Hx Schizophrenia - Immunizations History of Influenza Vaccine for 06/2017 - 11/2017 Season: No Physical Exam - Vital signs Vitals: Temp Pulse Resp BP Pulse Ox 97.5 F 79 18 120/76 100 08/23/18 14:22 08/23/18 14:22 08/23/18 14:22 08/23/18 14:22 08/23/18 14:22 Course - Vital Signs Vital signs: Temp Pulse Resp BP Pulse Ox 97.5 F 79 18 120/76 100 08/23/18 14:22 08/23/18 14:22 08/23/18 14:22 08/23/18 14:22 08/23/18 14:22
[2018-08-23] MEDS ORDERED: NORMAL SALINE 1000 ML 1,000 ML IV ONE (15:47)
[2018-08-23] MEDS ORDERED: LIDOCAINE 2% VISCOUS SOLN 20 ML UDCUP PO ONE (15:48)
[2018-08-23] MEDS ORDERED: MAG HYDROX/AL HYDROX/SIMETH SUSP 30 ML UDCUP PO ONE (15:48)
[2018-08-23] MEDS ORDERED: METOCLOPRAMIDE HCL ORAL SOLN 10 MG/10 ML UDCUP PO ONE (15:48)
[2018-08-23] MEDS ORDERED: ONDANSETRON HCL INJ/PF 4 MG/2 ML SDV IV ONE (15:58)
[2018-08-23] MEDS ORDERED: ONDANSETRON 4 MG TAB.RAPDIS PO ONE (16:31)
[2018-08-23 17:58] LABS: APPEARANCE,URINE CLOUDY; BILIRUBIN,URINE NEGATIVE (NEGATIVE); COLOR,URINE YELLOW; GLUCOSE, URINE NEGATIVE (NEGATIVE); KETONES,URINE 80 mg/dL (NEGATIVE); LEUKOCYTE ESTERASE,URINE LARGE (NEGATIVE); NITRITE,URINE POSITIVE (NEGATIVE); PROTEIN,URINE 100 mg/dL (NEGATIVE); URINE SPECIFIC GRAVITY 1.028; UROBILINOGEN,URINE NEGATIVE mg/dL (<2.0)
[2018-08-23] MEDS ORDERED: SUCRALFATE 1 GM TABLET PO ONE (18:02)
[2018-08-23] MEDS ORDERED: FAMOTIDINE INJ/PF 20 MG/2 ML SDV IV ONE (18:02)
[2018-08-23] MEDS ORDERED: SUCRALFATE SUSP 1 GM/10 ML UDCUP PO ONE ×2 (18:08)
[2018-08-23 18:10] LABS: ABSOLUTE LYMPHOCYTES (AUTO) 0.6 10^3/uL (0.5-4.7); ABSOLUTE MONOCYTES (AUTO) 0.4 10^3/uL (0.1-1.4); ABSOLUTE NEUT (AUTO) 5.1 10^3/uL (1.7-8.2); BASOPHILS % (AUTO) 0.2 % (0-2); EOSINOPHILS % (AUTO) 0.1 % (0-6); HEMATOCRIT 35.9 % (36.0-47.0); HEMOGLOBIN 12.2 g/dL (12.0-15.5); LYMPHOCYTES % (AUTO) 9.8 % (13-45); MEAN CORPUSCULAR HEMOGLOBIN 31.8 pg (27.0-33.4); MEAN CORPUSCULAR HGB CONC 34.1 g/dL (32.0-36.0); MEAN CORPUSCULAR VOLUME 93 fl (80-97); PLATELET COUNT 265 10^3/uL (150-450); RED BLOOD COUNT 3.85 10^6/uL (3.72-5.28); RED CELL DISTRIBUTION WIDTH 13.6 % (11.5-14.0); SEGMENTED NEUTROPHILS % (AUTO) 83.9 % (42-78); TOTAL CELLS COUNTED % (AUTO) 100 %; WHITE BLOOD COUNT 6.1 10^3/uL (4.0-10.5)
[2018-08-23 18:25] LABS: ALANINE AMINOTRANSFERASE 21 U/L (9-52); ALKALINE PHOSPHATASE 58 U/L (38-126); ANION GAP 14 (5-19); ASPARTATE AMINO TRANSFERASE 73 U/L (14-36); BILIRUBIN,DIRECT 0.4 mg/dL (0.0-0.4); BILIRUBIN,TOTAL 0.7 mg/dL (0.2-1.3); BLOOD UREA NITROGEN 16 mg/dL (7-20); CALCIUM 10.3 mg/dL (8.4-10.2); CARBON DIOXIDE 25 mmol/L (22-30); CHLORIDE 101 mmol/L (98-107); GLUCOSE 104 mg/dL (75-110); LIPASE 1443.6 U/L (23-300); POTASSIUM 4.1 mmol/L (3.6-5.0); SODIUM 139.7 mmol/L (137-145); TOTAL PROTEIN 8.8 g/dL (6.3-8.2)
[2018-08-23] MEDS ORDERED: HYDROMORPHONE HCL INJ/PF 2 MG/ML AMPULE IV ONE (18:59)
--- NOTE | 2018-08-23 19:15 | ER Document Report ---
ED General - General Chief Complaint: Abdominal Pain Stated Complaint: ABDOMINAL PAIN Time Seen by Provider: 08/23/18 15:34 Notes: Patient is a 37-year-old female presents to the emergency department with epigastric abdominal pain. Patient states she has started with epigastric abdominal pain yesterday afternoon. States she was cleaning around the house and thought maybe she twisted or moved a weird way. Patient states the pain has increased which is why she presents the emergency room. Patient states she did vomit x1 prior to arrival to the emergency room. Patient denies any blood in her vomitus. Patient denies any diarrhea or fever. Patient denies any dysuria or vaginal discharge. Patient does admit to a poor diet recently states she typically eats late at night spicy foods and has been partaking in alcoholic beverages more recently because she stated she just lost her job. Pt. stated she does have a history of pancreatitis and has been admitted to the hospital for same. LMP end of June. Past medical history: Pancreatitis Medications: invega, gabapentin Allergies: None Surgical history: None TRAVEL OUTSIDE OF THE [place] IN LAST 30 DAYS: No - Related Data Allergies/Adverse Reactions: No Known Allergies Allergy (Verified 06/27/17 12:56) Past Medical History - General Information source: Patient - Social History Smoking Status: Never Smoker Chew tobacco use (# tins/day): No Frequency of alcohol use: Heavy Drug Abuse: None Family History: Arthritis, Other - RA mother. denies: CAD, COPD, CVA, DM, Hyperlipidemia, Hypertension, Malignancy, Thyroid Disfunction Patient has suicidal ideation: No Patient has homicidal ideation: No Pulmonary Medical History: Reports: Hx Bronchitis Renal/ Medical History: Denies: Hx Peritoneal Dialysis Musculoskeletal Medical History: Reports Hx Arthritis, Reports Hx Musculoskeletal Deformity, Reports Hx Musculoskeletal Trauma Psychiatric Medical History: Reports: Hx Anxiety, Hx Bipolar Disorder, Hx Depression, Hx Post Traumatic Stress Disorder, Hx Schizophrenia Review of Systems - Review of Systems Constitutional: denies: Fever EENT: No symptoms reported Cardiovascular: No symptoms reported Respiratory: No symptoms reported Gastrointestinal: See HPI Genitourinary: See HPI Female Genitourinary: See HPI Musculoskeletal: No symptoms reported Skin: No symptoms reported Hematologic/Lymphatic: No symptoms reported Neurological/Psychological: No symptoms reported Physical Exam - Vital signs Vitals: Temp Pulse Resp BP Pulse Ox 97.5 F 79 18 120/76 100 08/23/18 14:22 08/23/18 14:22 08/23/18 14:22 08/23/18 14:22 08/23/18 14:22 - Notes Notes: GENERAL: Alert, interacts well. No acute distress. HEAD: Normocephalic, atraumatic. EYES: Pupils equal, round, and reactive to light. Extraocular movements intact. ENT: Oral mucosa moist, tongue midline. NECK: Full range of motion. Supple. Trachea midline. LUNGS: Clear to auscultation bilaterally, no wheezes, rales, or rhonchi. No respiratory distress. HEART: Regular rate and rhythm. No murmur ABDOMEN: Soft, Non-distended. Bowel sounds present in all 4 quadrants. Generalized epigastric pain upon palpation. No McBurney's point tenderness, no Wade sign. EXTREMITIES: Moves all 4 extremities spontaneously. No edema, normal radial and dorsalis pedis pulses bilaterally. No cyanosis. BACK: no cervical, thoracic, lumbar midline tenderness. No saddle anesthesia, normal distal neurovascular exam. No CVA tenderness bilaterally NEUROLOGICAL: Alert and oriented x3. Normal speech. cranial nerves II through XII grossly intact. PSYCH: Normal affect, normal mood. SKIN: Warm, dry, normal turgor. No rashes or lesions noted. Course - Re-evaluation Re-evalutation: 08/23/18 19:19 In reviewing patient's past charts at this facility it is seen that she was admitted here for alcoholic pancreatitis on 01/02/2018. 08/23/18 19:21 initially started treating the patient for Gastritis. Patient states she has been eating a lot of spicy foods late at night. Once lipase results came back elevated Dilaudid ordered. Patient's lipase is 1443. Patient's AST is mildly elevated at 73. Patient does not have any elevation in her bilirubin. Ultrasound of gallbladder to rule out any blockages is currently ordered. 08/23/18 19:52 Pts Urine shows signs of infection, initial dose of Keflex given in the ED. 08/23/18 20:27 US shows negative for right upper quadrant. No signs of cholecystitis, cholangitis, cholelithiasis. Discussed patient's labs and current presentation with Dr. Phillip who agrees to admit the patient for pancreatitis. With initial dose of Dilaudid patient states her pain has since resolved. Patient resting comfortably watching TV in the hospital bed. - Vital Signs Vital signs: Temp Pulse Resp BP Pulse Ox 97.5 F 79 18 120/76 100 08/23/18 14:22 08/23/18 14:22 08/23/18 14:22 08/23/18 14:22 08/23/18 14:22 - Laboratory Result Diagrams: 08/23/18 17:50 08/23/18 17:50 Laboratory results interpreted by me: 08/23/18 08/23/18 08/23/18 16:10 17:50 17:50 Hct 35.9 L Seg Neutrophils % 83.9 H Lymphocytes % 9.8 L Calcium 10.3 H AST 73 H Total Protein 8.8 H Lipase 1443.6 H Urine Protein 100 H Urine Ketones 80 H Urine Blood LARGE H Urine Nitrite POSITIVE H Ur Leukocyte Esterase LARGE H Discharge - Discharge Clinical Impression: Pancreatitis, alcoholic, acute Qualifiers: Acute pancreatitis complication: unspecified Qualified Code(s): K85.20 - Alcohol induced acute pancreatitis without necrosis or infection Urinary tract infection Qualifiers: Urinary tract infection type: acute cystitis Hematuria presence: without hematuria Qualified Code(s): N30.00 - Acute cystitis without hematuria Condition: Stable Disposition: ADMITTED INPATIENT Admitting Provider: Hospitalist - Dr. Phillip Unit Admitted: Medical Floor
[2018-08-23] MEDS ORDERED: CEPHALEXIN 500 MG CAPSULE PO ONE (19:52)
--- NOTE | 2018-08-23 20:18 | RADIOLOGY REPORT (SQ) ---
EXAM DESCRIPTION: U/S ABDOMEN LIMITED W/O DOP COMPLETED DATE/TIME: 08/23/2018 8:03 pm REASON FOR STUDY: RUQ, pancreatitis COMPARISON: None. TECHNIQUE: Dynamic and static grayscale images acquired of the abdomen and recorded on PACS. Faitho kiel selected color Doppler and spectral images recorded. LIMITATIONS: None. FINDINGS: PANCREAS: No masses. No peripancreatic edema or fluid collections. LIVER: Echotexture is coarse with increased echogenicity consistent with fatty infiltration. LIVER VASCULATURE: Normal directional flow of the main portal vein and hepatic veins. GALLBLADDER: No stones. Normal wall thickness. No pericholecystic fluid. ULTRASOUND-DETECTED BARNES'S SIGN: Negative. INTRAHEPATIC DUCTS AND COMMON DUCT: CBD and intrahepatic ducts normal caliber. No filling defects. INFERIOR VENA CAVA: Normal flow. AORTA: No aneurysm. RIGHT KIDNEY: Normal size. Normal echogenicity. No solid or suspicious masses. No hydronephros is. No calcifications. PERITONEAL AND RIGHT PLEURAL SPACE: No ascites or effusions. OTHER: No other significant finding. IMPRESSION: FATTY INFILTRATION OF THE LIVER. OTHERWISE NORMAL RIGHT UPPER QUADRANT ULTRASOUND. TECHNICAL DOCUMENTATION: JOB ID: [id number]- All Rights Reserved Reading location - IP/workstation name: [email or web address]
[2018-08-23] MEDS ORDERED: MAG HYDROX/AL HYDROX/SIMETH SUSP 30 ML UDCUP PO PRN (20:53)
[2018-08-23] MEDS ORDERED: MAGNESIUM HYDROXIDE SUSP 30 ML UDCUP PO PRN (20:53)
[2018-08-23] MEDS ORDERED: ONDANSETRON HCL INJ/PF 4 MG/2 ML SDV IV PRN (20:53)
[2018-08-23] MEDS ORDERED: ONDANSETRON 4 MG TAB.RAPDIS PO PRN (20:53)
--- NOTE | 2018-08-23 20:55 | EKG REPORT ---
SEVERITY:- NORMAL ECG - SINUS RHYTHM : Confirmed by: Celena Willis MD 23-Aug-2018 20:54:39
[2018-08-23] MEDS ORDERED: ACETAMINOPHEN 325 MG TABLET PO PRN (20:58)
[2018-08-23] MEDS ORDERED: ACETAMINOPHEN 650 MG SUPP.RECT PR PRN (20:58)
[2018-08-23] MEDS ORDERED: MORPHINE SULFATE 10 MG/ML INJ IV PRN ×3 (21:07)
[2018-08-23] MEDS: METOCLOPRAMIDE HCL 10 MG TABLET PO SCH (21:48)
[2018-08-23] MEDS: FAMOTIDINE 20 MG TABLET PO SCH (21:48)
[2018-08-23] MEDS: SUCRALFATE SUSP 1 GM/10 ML UDCUP PO SCH (21:49)
[2018-08-23] MEDS ORDERED: CEFTRIAXONE 2 GM/D5W RTU 2 GM/50 ML RTUPB IV ONE (22:00)
[2018-08-23] MEDS ORDERED: CEFTRIAXONE SODIUM 2,000 MG in DEXTROSE 5%-WATER 100 ML IV ONE (22:00)
[2018-08-23] MEDS: POTASSI CL 20 MEQ/D5-1/2NS 1L 1,000 ML IV PRN (23:13)
[2018-08-23] MEDS: HEPARIN SOD (PORCINE) 5,000 UNIT/ML 1 ML SYRINGE SUBCUT SCH (23:41)
[2018-08-24] MEDS ORDERED: MORPHINE SULFATE 10 MG/ML INJ IV PRN (01:34)
[2018-08-24] MEDS ORDERED: MORPHINE SULFATE 10 MG/ML INJ ONE (01:46)
--- NOTE | 2018-08-24 01:55 | PDOC H&P ---
History of Present Illness Admission Date/PCP: 08/23/18 20:37 Patient complains of: Abdominal pain History of Present Illness: CHRISTINE RODGERS is a 37 year old female who presented to the emergency room with a 1 day history of progressively worsening epigastric abdominal pain. She describes the pain as being a constantly present but waxing and waning, severe, sharp cramping pain in her epigastric region radiating into her back. She admits to having had similar pain on one prior occasion with the diagnosis of alcoholic pancreatitis. She denies identification of aggravating or ameliorating factors for this pain until she learned that her drinking alcohol to a slight excess approximately 1 day prior to the onset of pain was most likely responsible for her current episode. In the emergency room she was found to have a lipase greater than 1400 and epigastric abdominal pain on palpation. Because of her pain and elevated lipase she was admitted to hospital for treatment of her acute mild to moderate pancreatitis. Past Medical History Cardiac Medical History: Denies: Coronary Artery Disease, DVT, Hyperlipidema, Hypertension, Pulmonary Embolism Pulmonary Medical History: Reports: Bronchitis Denies: Asthma, Chronic Obstructive Pulmonary Disease (COPD), Respiratory Failure, Sleep Apnea EENT Medical History: Reports: None Neurological Medical History: Denies: Hemorrhagic CVA, Ischemic CVA, Seizures Endocrine Medical History: Denies: Diabetes Mellitus Type 1, Diabetes Mellitus Type 2 Renal/ Medical History: Denies: Chronic Kidney Disease, Nephrolithiasis Malignancy Medical History: Reports: None GI Medical History: Reports: Other - Alcoholic pancreatitis Denies: Cirrhosis, Crohn's Disease, Hepatitis, Ulcerative Colitis Musculoskeltal Medical History: Reports: Arthritis Denies: Gout Skin Medical History: Denies: Eczema, Psoriasis Psychiatric Medical History: Reports: Bipolar Disorder, Depression, Post Traumatic Stress Disorder, Other - Alcohol abuse Denies: Alcohol Dependency, Substance Abuse, Tobacco Dependency Traumatic Medical History: Reports: None Hematology: Denies: Anemia, Bleeding Tendencies Infectious Medical History: Reports: None Past Surgical History Past Surgical History: Reports: None Social History Information Source: Patient Smoking Status: Never Smoker Frequency of Alcohol Use: Heavy - Drinks heavily when she drinks but had not had a drink for several months prior to her last drink 2 days ago. Hx Recreational Drug Use: No Drugs: None Hx Prescription Drug Abuse: No - Advance Directive Resuscitation Status: Full Code Surrogate healthcare decision maker:: friend Family History Family History: Arthritis, Other - RA mother. denies: CAD, COPD, CVA, DM, Hyperlipidemia, Hypertension, Malignancy, Thyroid Disfunction Parental Family History Reviewed: Yes Children Family History Reviewed: NA Sibling(s) Family History Reviewed.: Yes Medication/Allergy Allergies/Adverse Reactions: No Known Allergies Allergy (Verified 06/27/17 12:56) Review of Systems Constitutional: ABSENT: chills, fever(s) Eyes: ABSENT: visual disturbances, other - Ocular pain Ears: ABSENT: hearing changes, other - Ear pain Nose, Mouth, and Throat: ABSENT: mouth pain, sore throat Cardiovascular: ABSENT: chest pain, dyspnea on exertion, palpitations Respiratory: ABSENT: cough, dyspnea Gastrointestinal: PRESENT: as per HPI, abdominal pain, nausea, vomiting. ABSENT : constipation, diarrhea, dysphagia, heartburn, hematemesis, melena Musculoskeletal: ABSENT: deformity, joint swelling Integumentary: ABSENT: pruritus, rash Neurological: ABSENT: confusion, focal weakness, memory loss, syncope Psychiatric: PRESENT: depression - Somewhat depressed over recent loss of her job. ABSENT: anxiety Endocrine: ABSENT: cold intolerance, heat intolerance Hematologic/Lymphatic: ABSENT: easy bleeding, easy bruising Allergic/Immunologic: ABSENT: seasonal rhinorrhea Physical Exam Vital Signs: Temp Pulse Resp BP Pulse Ox 97.5 F 79 18 120/76 100 08/23/18 14:22 08/23/18 14:22 08/23/18 14:22 08/23/18 14:22 08/23/18 14:22 General appearance: PRESENT: no acute distress, cooperative, well-developed, well-nourished Head exam: PRESENT: atraumatic, normocephalic Eye exam: PRESENT: EOMI. ABSENT: conjunctiva pink, nystagmus, scleral icterus Ear exam: PRESENT: normal external ear exam. ABSENT: bleeding, drainage Mouth exam: PRESENT: neck supple, other - Oral mucosa moist and intact, dentition in good repair Neck exam: ABSENT: JVD, thyromegaly, tracheal deviation Respiratory exam: PRESENT: clear to auscultation luis, symmetrical, unlabored Cardiovascular exam: PRESENT: RRR. ABSENT: clicks, gallop, rubs Pulses: PRESENT: normal radial pulses, normal dorsalis pedis pul Vascular exam: PRESENT: normal capillary refill. ABSENT: pallor GI/Abdominal exam: PRESENT: normal bowel sounds, soft, tenderness - Epigastric tenderness to light and deep palpation, no rebound tenderness. ABSENT: rebound Rectal exam: PRESENT: deferred Extremities exam: ABSENT: joint swelling, pedal edema Musculoskeletal exam: PRESENT: full ROM, normal inspection Neurological exam: PRESENT: alert, oriented to person, oriented to place, oriented to time, oriented to situation, CN II-XII grossly intact. ABSENT: motor sensory deficit Psychiatric exam: PRESENT: appropriate affect, normal mood Skin exam: PRESENT: dry, intact, warm. ABSENT: jaundice, rash, urticaria Results Impressions: Abdomen Ultrasound 08/23/18 19:07 IMPRESSION: FATTY INFILTRATION OF THE LIVER. OTHERWISE NORMAL RIGHT UPPER QUADRANT ULTRASOUND. Assessment & Plan - Diagnosis (1) Acute alcoholic pancreatitis Qualifiers: Acute pancreatitis complication: unspecified Qualified Code(s): K85.20 - Alcohol induced acute pancreatitis without necrosis or infection Is this a current diagnosis for this admission?: Yes Plan: Patient will have her pain treated utilizing morphine sulfate intravenously on a sliding scale to establish adequate pain control. Additionally she will receive supportive therapy with IV fluids and she will be started on early feeding with pancreatic enzyme replacement regiment tomorrow morning. We will follow her metabolic profile, amylase and lipase, as well as her CBC every day. (2) Alcohol abuse Is this a current diagnosis for this admission?: Yes Plan: Patient is advised that she will need to stop drinking now and in the future in order to avoid having further episodes of pancreatitis exacerbations. (3) Pyuria Is this a current diagnosis for this admission?: Yes Plan: Urine C&S is performed and patient was started on empiric antibiotic therapy in the emergency room. This will be continued in anticipation of her urine culture results. - Time Time Spent: 30 to 50 Minutes Medications reviewed and adjusted accordingly: Yes Anticipated discharge: Home - Inpatient Certification Medical Necessity: Need Close Monitoring Due to Risk of Patient Decompensation, Need For IV Fluids, Need for Pain Control, Risk of Complication if Not Cared For in Hospital
[2018-08-24] MEDS: MORPHINE SULFATE 10 MG/ML INJ IV PRN ×6 (01:56→22:00)
[2018-08-24] MEDS: HEPARIN SOD (PORCINE) 5,000 UNIT/ML 1 ML SYRINGE SUBCUT SCH ×3 (05:47→22:01)
[2018-08-24 06:52] LABS: ABSOLUTE LYMPHOCYTES (AUTO) 0.9 10^3/uL (0.5-4.7); ABSOLUTE MONOCYTES (AUTO) 0.6 10^3/uL (0.1-1.4); ABSOLUTE NEUT (AUTO) 4.6 10^3/uL (1.7-8.2); BASOPHILS % (AUTO) 0.2 % (0-2); EOSINOPHILS % (AUTO) 0.4 % (0-6); HEMATOCRIT 35.1 % (36.0-47.0); HEMOGLOBIN 12.1 g/dL (12.0-15.5); LYMPHOCYTES % (AUTO) 15.1 % (13-45); MEAN CORPUSCULAR HEMOGLOBIN 32.6 pg (27.0-33.4); MEAN CORPUSCULAR HGB CONC 34.3 g/dL (32.0-36.0); MEAN CORPUSCULAR VOLUME 95 fl (80-97); MONOCYTES % (AUTO) 9.7 % (3-13); PLATELET COUNT 256 10^3/uL (150-450); RED CELL DISTRIBUTION WIDTH 13.9 % (11.5-14.0); SEGMENTED NEUTROPHILS % (AUTO) 74.6 % (42-78); TOTAL CELLS COUNTED % (AUTO) 100 %; WHITE BLOOD COUNT 6.2 10^3/uL (4.0-10.5)
[2018-08-24] MEDS: POTASSI CL 20 MEQ/D5-1/2NS 1L 1,000 ML IV PRN ×3 (06:52→23:25)
[2018-08-24 07:12] LABS: AMYLASE 204 U/L (30-110); ANION GAP 12 (5-19); BLOOD UREA NITROGEN 9 mg/dL (7-20); CALCIUM 9.4 mg/dL (8.4-10.2); CARBON DIOXIDE 24 mmol/L (22-30); CHLORIDE 102 mmol/L (98-107); GLUCOSE 154 mg/dL (75-110); POTASSIUM 4.2 mmol/L (3.6-5.0); SODIUM 137.7 mmol/L (137-145)
[2018-08-24 07:26] LABS: FREE T3 2.3 pg/mL (2.77-5.27); FREE T4 (FREE THYROXINE) 0.58 ng/dL (0.78-2.19)
[2018-08-24 07:40] LABS: THYROID STIMULATING HORMONE 1.42 uIU/mL (0.47-4.68)
[2018-08-24] MEDS: METOCLOPRAMIDE HCL 10 MG TABLET PO SCH ×4 (08:00→22:01)
[2018-08-24] MEDS: CEPHALEXIN 250 MG CAPSULE PO SCH ×3 (09:00→18:32)
[2018-08-24] MEDS: FAMOTIDINE 20 MG TABLET PO SCH ×4 (09:14→22:01)
[2018-08-24] MEDS: LIPASE/PROTEASE/AMYLASE 1 CAP CAPSULE.DR PO SCH ×3 (09:17→18:32)
[2018-08-24] MEDS: SUCRALFATE SUSP 1 GM/10 ML UDCUP PO SCH ×4 (09:19→22:00)
[2018-08-24] MEDS: DOCUSATE SODIUM 100 MG CAPSULE PO SCH ×2 (09:24→18:40)
--- NOTE | 2018-08-24 17:01 | PDOC PROGRESS REPORT ---
Subjective Progress Note for:: 08/24/18 Subjective:: Patient's abdominal pain is under somewhat better control than it was on admission. She has not had recent nausea or vomiting, since admission to the floor. She has been through bouts of acute pancreatitis in the past. No chest pain or difficulty breathing. She has not had a bowel movement. No dysuria. No fevers or chills. Reason For Visit: ACUTE RECURRENT ALCOHLIC PANCREATITIS Physical Exam Vital Signs: Temp Pulse Resp BP Pulse Ox 98.0 F 71 16 152/87 H 98 08/24/18 15:58 08/24/18 15:58 08/24/18 15:58 08/24/18 15:58 08/24/18 15:58 Intake & Output 08/23/18 08/24/18 08/25/18 06:59 06:59 06:59 Intake Total 2055 1000 Balance 2055 1000 Weight 67.8 kg General appearance: PRESENT: mild distress, well-developed, well-nourished Head exam: PRESENT: atraumatic, normocephalic Eye exam: ABSENT: scleral icterus Ear exam: PRESENT: normal external ear exam Mouth exam: PRESENT: moist Respiratory exam: PRESENT: clear to auscultation luis, unlabored. ABSENT: rales , rhonchi, wheezes Cardiovascular exam: PRESENT: RRR. ABSENT: systolic murmur Pulses: PRESENT: normal radial pulses GI/Abdominal exam: PRESENT: soft, tenderness. ABSENT: distended, firm, guarding Rectal exam: PRESENT: deferred Gentrourinary exam: ABSENT: indwelling catheter Extremities exam: ABSENT: joint swelling, pedal edema Musculoskeletal exam: ABSENT: deformity Neurological exam: PRESENT: alert, awake, oriented to person, oriented to place , oriented to situation, CN II-XII grossly intact Psychiatric exam: PRESENT: anxious, appropriate affect. ABSENT: agitated Skin exam: PRESENT: dry, intact, warm Results Laboratory Results: 08/24/18 05:27 08/24/18 05:27 08/24/18 08/24/18 08/24/18 05:27 05:27 05:27 WBC 6.2 RBC 3.70 L Hgb 12.1 Hct 35.1 L MCV 95 MCH 32.6 MCHC 34.3 RDW 13.9 Plt Count 256 Seg Neutrophils % 74.6 Lymphocytes % 15.1 Monocytes % 9.7 Eosinophils % 0.4 Basophils % 0.2 Absolute Neutrophils 4.6 Absolute Lymphocytes 0.9 Absolute Monocytes 0.6 Absolute Eosinophils 0.0 Absolute Basophils 0.0 Sodium 137.7 Potassium 4.2 Chloride 102 Carbon Dioxide 24 Anion Gap 12 BUN 9 Creatinine 0.55 Est GFR ( Amer) > 60 Est GFR (Non-Af Amer) > 60 Glucose 154 H Calcium 9.4 Magnesium 1.7 Amylase 204 H Lipase 1522.0 H TSH 1.42 Free T4 0.58 L Free T3 pg/mL 2.30 L Impressions: Abdomen Ultrasound 08/23/18 19:07 IMPRESSION: FATTY INFILTRATION OF THE LIVER. OTHERWISE NORMAL RIGHT UPPER QUADRANT ULTRASOUND. Assessment & Plan - Diagnosis (1) Acute alcoholic pancreatitis Qualifiers: Acute pancreatitis complication: unspecified Qualified Code(s): K85.20 - Alcohol induced acute pancreatitis without necrosis or infection Is this a current diagnosis for this admission?: Yes Plan: Patient is on IV fluids, started on the early feeding plan per Dr. Phillip. She has done fairly well so far, no vomiting. Pain is relatively well controlled with current pain regimen. Will continue on telemetry and monitor to see if changes to the plan are needed. (2) Urinary tract infection Qualifiers: Urinary tract infection type: acute cystitis Hematuria presence: without hematuria Qualified Code(s): N30.00 - Acute cystitis without hematuria Is this a current diagnosis for this admission?: Yes Plan: UA appears infected, urine culture pending. No dysuria. WIll cont cefelexin and change if indicated base don culture results and clinical status. (3) Alcohol abuse Is this a current diagnosis for this admission?: Yes Plan: Once pt is feeling better will discuss the portions of alcohol cessation given not only her acute pancreatitis but her chronic condition as well. - Time Time Spent with patient: 15-24 minutes Medications reviewed and adjusted accordingly: Yes - Inpatient Certification Based on my medical assessment, after consideration of the patient's comorbidities, presenting symptoms, or acuity I expect that the services needed warrant INPATIENT care.: Yes I certify that my determination is in accordance with my understanding of Medicare's requirements for reasonable and necessary INPATIENT services [42 CFR 412.3e].: Yes Medical Necessity: Need For IV Fluids, Need for Pain Control
[2018-08-25] MEDS: HEPARIN SOD (PORCINE) 5,000 UNIT/ML 1 ML SYRINGE SUBCUT SCH ×3 (05:58→21:31)
[2018-08-25 06:08] LABS: ABSOLUTE LYMPHOCYTES (AUTO) 0.9 10^3/uL (0.5-4.7); ABSOLUTE MONOCYTES (AUTO) 0.9 10^3/uL (0.1-1.4); ABSOLUTE NEUT (AUTO) 4.7 10^3/uL (1.7-8.2); BASOPHILS % (AUTO) 0.2 % (0-2); EOSINOPHILS % (AUTO) 0.4 % (0-6); HEMATOCRIT 35.1 % (36.0-47.0); HEMOGLOBIN 12.1 g/dL (12.0-15.5); LYMPHOCYTES % (AUTO) 13.9 % (13-45); MEAN CORPUSCULAR HEMOGLOBIN 32.4 pg (27.0-33.4); MEAN CORPUSCULAR HGB CONC 34.4 g/dL (32.0-36.0); MEAN CORPUSCULAR VOLUME 94 fl (80-97); MONOCYTES % (AUTO) 13.4 % (3-13); PLATELET COUNT 218 10^3/uL (150-450); RED BLOOD COUNT 3.73 10^6/uL (3.72-5.28); RED CELL DISTRIBUTION WIDTH 13.4 % (11.5-14.0); SEGMENTED NEUTROPHILS % (AUTO) 72.1 % (42-78); TOTAL CELLS COUNTED % (AUTO) 100 %; WHITE BLOOD COUNT 6.5 10^3/uL (4.0-10.5)
[2018-08-25 06:25] LABS: AMYLASE 250 U/L (30-110); ANION GAP 15 (5-19); CALCIUM 9.8 mg/dL (8.4-10.2); CARBON DIOXIDE 22 mmol/L (22-30); CHLORIDE 99 mmol/L (98-107); GLUCOSE 143 mg/dL (75-110)
[2018-08-25 06:31] LABS: BLOOD UREA NITROGEN < 2 mg/dL (7-20)
[2018-08-25 06:39] LABS: LIPASE 2048.5 U/L (23-300)
[2018-08-25] MEDS: POTASSI CL 20 MEQ/D5-1/2NS 1L 1,000 ML IV PRN ×2 (07:36→15:41)
[2018-08-25] MEDS: FAMOTIDINE 20 MG TABLET PO SCH ×4 (07:41→21:31)
[2018-08-25] MEDS: LIPASE/PROTEASE/AMYLASE 1 CAP CAPSULE.DR PO SCH ×3 (07:42→18:09)
[2018-08-25] MEDS: SUCRALFATE SUSP 1 GM/10 ML UDCUP PO SCH ×4 (07:42→21:31)
[2018-08-25] MEDS: METOCLOPRAMIDE HCL 10 MG TABLET PO SCH ×4 (07:42→21:32)
[2018-08-25] MEDS: CEPHALEXIN 250 MG CAPSULE PO SCH ×2 (11:44→15:31)
[2018-08-25] MEDS: DOCUSATE SODIUM 100 MG CAPSULE PO SCH ×2 (11:46→18:10)
--- NOTE | 2018-08-25 16:19 | PDOC PROGRESS REPORT ---
Subjective Progress Note for:: 08/25/18 Subjective:: Patient states she is feeling better today, she did not eat anything yesterday as she thought bowel rest would be the best plan of care for her and today she has started to take some clear liquids. She is not requiring excessive amounts of pain control medication. At this point we will continue IV fluids monitor clinically. No signs of infection. Reason For Visit: ACUTE RECURRENT ALCOHLIC PANCREATITIS Physical Exam Vital Signs: Temp Pulse Resp BP Pulse Ox 98.9 F 73 16 155/95 H 100 08/25/18 15:13 08/25/18 15:13 08/25/18 15:13 08/25/18 15:13 08/25/18 15:13 Intake & Output 08/24/18 08/25/18 08/26/18 06:59 06:59 06:59 Intake Total 20550 Balance 2055 2236 2419 Weight 67.8 kg 67.8 kg Results Laboratory Results: 08/25/18 05:35 08/25/18 05:35 08/25/18 08/25/18 05:35 05:35 WBC 6.5 RBC 3.73 Hgb 12.1 Hct 35.1 L MCV 94 MCH 32.4 MCHC 34.4 RDW 13.4 Plt Count 218 Seg Neutrophils % 72.1 Lymphocytes % 13.9 Monocytes % 13.4 H Eosinophils % 0.4 Basophils % 0.2 Absolute Neutrophils 4.7 Absolute Lymphocytes 0.9 Absolute Monocytes 0.9 Absolute Eosinophils 0.0 Absolute Basophils 0.0 Sodium 136.0 L Potassium 4.0 Chloride 99 Carbon Dioxide 22 Anion Gap 15 BUN < 2 L Creatinine 0.44 L Est GFR ( Amer) > 60 Est GFR (Non-Af Amer) > 60 Glucose 143 H Calcium 9.8 Magnesium 1.7 Amylase 250 H Lipase 2048.5 H Impressions: Abdomen Ultrasound 08/23/18 19:07 IMPRESSION: FATTY INFILTRATION OF THE LIVER. OTHERWISE NORMAL RIGHT UPPER QUADRANT ULTRASOUND. Assessment & Plan - Diagnosis (1) Acute alcoholic pancreatitis Qualifiers: Acute pancreatitis complication: unspecified Qualified Code(s): K85.20 - Alcohol induced acute pancreatitis without necrosis or infection Is this a current diagnosis for this admission?: Yes (2) Alcohol abuse Is this a current diagnosis for this admission?: Yes Plan: She has alcohol use disorder. When she is feeling better we can discuss the importance of cessation. Of note she has chronic alcoholic pancreatitis. - Time Time Spent with patient: 15-24 minutes Medications reviewed and adjusted accordingly: Yes - Inpatient Certification Based on my medical assessment, after consideration of the patient's comorbidities, presenting symptoms, or acuity I expect that the services needed warrant INPATIENT care.: Yes I certify that my determination is in accordance with my understanding of Medicare's requirements for reasonable and necessary INPATIENT services [42 CFR 412.3e].: Yes Medical Necessity: Need Close Monitoring Due to Risk of Patient Decompensation, Need For IV Fluids
[2018-08-26 05:27] LABS: ABSOLUTE EOSINOPHILS # (AUTO) 0.1 10^3/uL (0.0-0.6); ABSOLUTE LYMPHOCYTES (AUTO) 2.3 10^3/uL (0.5-4.7); ABSOLUTE MONOCYTES (AUTO) 0.9 10^3/uL (0.1-1.4); ABSOLUTE NEUT (AUTO) 1.9 10^3/uL (1.7-8.2); BASOPHILS % (AUTO) 0.6 % (0-2); EOSINOPHILS % (AUTO) 1.5 % (0-6); HEMATOCRIT 32.8 % (36.0-47.0); HEMOGLOBIN 11.1 g/dL (12.0-15.5); LYMPHOCYTES % (AUTO) 43.6 % (13-45); MEAN CORPUSCULAR HEMOGLOBIN 31.9 pg (27.0-33.4); MEAN CORPUSCULAR HGB CONC 33.9 g/dL (32.0-36.0); MEAN CORPUSCULAR VOLUME 94 fl (80-97); MONOCYTES % (AUTO) 16.8 % (3-13); PLATELET COUNT 230 10^3/uL (150-450); RED BLOOD COUNT 3.49 10^6/uL (3.72-5.28); RED CELL DISTRIBUTION WIDTH 13.3 % (11.5-14.0); SEGMENTED NEUTROPHILS % (AUTO) 37.5 % (42-78); TOTAL CELLS COUNTED % (AUTO) 100 %; WHITE BLOOD COUNT 5.2 10^3/uL (4.0-10.5)
[2018-08-26 05:48] LABS: AMYLASE 121 U/L (30-110); ANION GAP 9 (5-19); BLOOD UREA NITROGEN 2 mg/dL (7-20); CALCIUM 9.5 mg/dL (8.4-10.2); CARBON DIOXIDE 24 mmol/L (22-30); CHLORIDE 104 mmol/L (98-107); GLUCOSE 131 mg/dL (75-110); LIPASE 1279.8 U/L (23-300); POTASSIUM 3.7 mmol/L (3.6-5.0); SODIUM 136.9 mmol/L (137-145)
[2018-08-26] MEDS: HEPARIN SOD (PORCINE) 5,000 UNIT/ML 1 ML SYRINGE SUBCUT SCH ×3 (06:12→22:23)
[2018-08-26] MEDS: POTASSI CL 20 MEQ/D5-1/2NS 1L 1,000 ML IV PRN ×2 (06:12)
[2018-08-26] MEDS: SUCRALFATE SUSP 1 GM/10 ML UDCUP PO SCH ×4 (08:35→22:22)
[2018-08-26] MEDS: FAMOTIDINE 20 MG TABLET PO SCH ×4 (08:35→22:23)
[2018-08-26] MEDS: METOCLOPRAMIDE HCL 10 MG TABLET PO SCH ×2 (08:35→18:25)
[2018-08-26] MEDS: LIPASE/PROTEASE/AMYLASE 1 CAP CAPSULE.DR PO SCH ×3 (08:35→17:27)
[2018-08-26] MEDS: DOCUSATE SODIUM 100 MG CAPSULE PO SCH ×2 (10:35→17:29)
[2018-08-26] MEDS ORDERED: (PENDING PHARMACY ID) (Trazodone Hcl [Desyrel] 150 MG) PO PRN (11:15)
[2018-08-26] MEDS ORDERED: TRAZODONE HCL 50 MG TABLET PO PRN (11:17)
[2018-08-26] MEDS ORDERED: OXYCODONE HCL IR 5 MG TABLET PO PRN (11:20)
[2018-08-26] MEDS ORDERED: BISACODYL 10 MG SUPP.RECT PR PRN (18:18)
--- NOTE | 2018-08-26 18:20 | PDOC PROGRESS REPORT ---
Subjective Progress Note for:: 08/26/18 Subjective:: Patient feeling significantly better today. She had clears and did okay and she like to advance her diet. Her pain is improved though she has required a few days doses of IV morphine. No nausea or vomiting. No bowel movement and so we will start something for that. No dysuria. She has been able to walk around without difficulty. No chest pain or shortness of breath. She feels that her mental status is good. She tells me what her outpatient meds are so I can start those. We also discussed that she is part of a counseling group for substance abuse and is going to try to abstain from alcohol at this point. She does feel that she has good outpatient support in this regard. Reason For Visit: ACUTE RECURRENT ALCOHLIC PANCREATITIS Physical Exam Vital Signs: Temp Pulse Resp BP Pulse Ox 98.7 F 70 16 149/89 H 100 08/26/18 15:31 08/26/18 15:31 08/26/18 15:31 08/26/18 15:31 08/26/18 15:31 Intake & Output 08/25/18 08/26/18 08/27/18 06:59 06:59 06:59 Intake Total 2237 4440 450 Balance 2237 4440 450 Weight 67.8 kg 68 kg General appearance: PRESENT: no acute distress, cooperative, well-developed, well-nourished Head exam: PRESENT: atraumatic, normocephalic Eye exam: ABSENT: conjunctival injection, scleral icterus Mouth exam: PRESENT: moist, neck supple, tongue midline Neck exam: ABSENT: lymphadenopathy Respiratory exam: PRESENT: clear to auscultation luis, unlabored. ABSENT: rales , rhonchi, wheezes Cardiovascular exam: PRESENT: RRR. ABSENT: systolic murmur Pulses: PRESENT: normal radial pulses GI/Abdominal exam: PRESENT: normal bowel sounds, soft, tenderness. ABSENT: distended, guarding Rectal exam: PRESENT: deferred Extremities exam: ABSENT: pedal edema Musculoskeletal exam: ABSENT: deformity Neurological exam: PRESENT: alert, awake, oriented to person, oriented to place , oriented to situation, CN II-XII grossly intact Psychiatric exam: PRESENT: appropriate affect. ABSENT: anxious Skin exam: PRESENT: dry, intact, warm Results Laboratory Results: 08/26/18 04:56 08/26/18 04:56 08/26/18 08/26/18 04:56 04:56 WBC 5.2 RBC 3.49 L Hgb 11.1 L Hct 32.8 L MCV 94 MCH 31.9 MCHC 33.9 RDW 13.3 Plt Count 230 Seg Neutrophils % 37.5 L Lymphocytes % 43.6 Monocytes % 16.8 H Eosinophils % 1.5 Basophils % 0.6 Absolute Neutrophils 1.9 Absolute Lymphocytes 2.3 Absolute Monocytes 0.9 Absolute Eosinophils 0.1 Absolute Basophils 0.0 Sodium 136.9 L Potassium 3.7 Chloride 104 Carbon Dioxide 24 Anion Gap 9 BUN 2 L Creatinine 0.48 L Est GFR ( Amer) > 60 Est GFR (Non-Af Amer) > 60 Glucose 131 H Calcium 9.5 Magnesium 1.7 Amylase 121 H Lipase 1279.8 H Impressions: Abdomen Ultrasound 08/23/18 19:07 IMPRESSION: FATTY INFILTRATION OF THE LIVER. OTHERWISE NORMAL RIGHT UPPER QUADRANT ULTRASOUND. Assessment & Plan - Diagnosis (1) Acute alcoholic pancreatitis Qualifiers: Acute pancreatitis complication: unspecified Qualified Code(s): K85.20 - Alcohol induced acute pancreatitis without necrosis or infection Is this a current diagnosis for this admission?: Yes Plan: Patient is improving with plan that was put in place on admission. We will continue to advance her diet and use pancreatic enzymes. We will stop checking lipase. Will hope for discharge tomorrow. I stopped her IV fluids that she is able to keep herself hydrated and is making a significant amount of urine. (2) Alcohol abuse Is this a current diagnosis for this admission?: Yes Plan: She has acute on chronic pancreatitis secondary to alcohol abuse. She tells me that she is going to try to be abstinent again. She has out patient one-on-one counseling and group counseling that she has been going to and feels that that is good support. (3) Constipation Is this a current diagnosis for this admission?: Yes Plan: Continue Colace 100 mg p.o. twice daily and I have added a Dulcolax suppository daily as needed constipation. Is probably related to opioid use. (4) Psychotic disorder Is this a current diagnosis for this admission?: Yes Plan: Patient is on monthly IM paliperidone palmitate, she is not due for a dose now. She is also on prazosin which I have started. He has outpatient psychiatric follow-up. - Time Time Spent with patient: 25-34 minutes Medications reviewed and adjusted accordingly: Yes Anticipated discharge: Home - Inpatient Certification Based on my medical assessment, after consideration of the patient's comorbidities, presenting symptoms, or acuity I expect that the services needed warrant INPATIENT care.: Yes I certify that my determination is in accordance with my understanding of Medicare's requirements for reasonable and necessary INPATIENT services [42 CFR 412.3e].: Yes Medical Necessity: Significant Comorbidiites Make Outpatient Treatment Too Risky , Risk of Complication if Not Cared For in Hospital
[2018-08-26] MEDS ORDERED: (PENDING PHARMACY ID) (Prazosin Hcl [Minipress] 2 MG) PO SCH (22:00)
[2018-08-27] MEDS: HEPARIN SOD (PORCINE) 5,000 UNIT/ML 1 ML SYRINGE SUBCUT SCH ×2 (05:45→13:37)
[2018-08-27 06:56] LABS: HEMATOCRIT 33.3 % (36.0-47.0); HEMOGLOBIN 11.2 g/dL (12.0-15.5); MEAN CORPUSCULAR HEMOGLOBIN 32.2 pg (27.0-33.4); MEAN CORPUSCULAR HGB CONC 33.6 g/dL (32.0-36.0); MEAN CORPUSCULAR VOLUME 96 fl (80-97); PLATELET COUNT 267 10^3/uL (150-450); RED BLOOD COUNT 3.47 10^6/uL (3.72-5.28); RED CELL DISTRIBUTION WIDTH 13.5 % (11.5-14.0)
[2018-08-27 07:07] LABS: ALANINE AMINOTRANSFERASE 22 U/L (9-52); ALKALINE PHOSPHATASE 41 U/L (38-126); ANION GAP 11 (5-19); ASPARTATE AMINO TRANSFERASE 50 U/L (14-36); BILIRUBIN,DIRECT 0.2 mg/dL (0.0-0.4); BILIRUBIN,TOTAL 0.4 mg/dL (0.2-1.3); BLOOD UREA NITROGEN 3 mg/dL (7-20); CALCIUM 10.1 mg/dL (8.4-10.2); CARBON DIOXIDE 24 mmol/L (22-30); CHLORIDE 105 mmol/L (98-107); GLUCOSE 95 mg/dL (75-110); POTASSIUM 3.8 mmol/L (3.6-5.0); SODIUM 140.1 mmol/L (137-145); TOTAL PROTEIN 6.8 g/dL (6.3-8.2)
[2018-08-27] MEDS: FAMOTIDINE 20 MG TABLET PO SCH ×2 (08:28→13:37)
[2018-08-27] MEDS: LIPASE/PROTEASE/AMYLASE 1 CAP CAPSULE.DR PO SCH ×2 (08:28→13:37)
[2018-08-27] MEDS: SUCRALFATE SUSP 1 GM/10 ML UDCUP PO SCH ×2 (08:28→13:37)
[2018-08-27] MEDS: DOCUSATE SODIUM 100 MG CAPSULE PO SCH (10:44)
--- NOTE | 2018-08-27 12:47 | PDOC DISCHARGE SUMMARY ---
General - Admit/Disc Date/PCP Admission Date/Primary Care Provider: 08/23/18 20:37 Discharge Date: 08/27/18 - Discharge Diagnosis (1) Acute alcoholic pancreatitis Is this a current diagnosis for this admission?: Yes (2) Alcohol abuse Is this a current diagnosis for this admission?: Yes (3) Constipation Is this a current diagnosis for this admission?: Yes (4) Psychotic disorder Is this a current diagnosis for this admission?: Yes - Additional Information Resuscitation Status: Full Code Home Medications: Paliperidone Palmitate [Invega Trinza] 156 mg IM [id number] 08/24/18 Prazosin HCl [Minipress] 2 mg PO QHS 08/24/18 Trazodone HCl [Desyrel] 150 mg PO QHS PRN 08/24/18 Acetaminophen [Tylenol 325 mg Tablet] 650 mg PO Q4HP PRN tablet 08/27/18 History of Present Illness History of Present Illness: Patient was admitted on 08/23/18 after presenting as in HPI below: "CHRISTINE RODGERS is a 37 year old female who presented to the emergency room with a 1 day history of progressively worsening epigastric abdominal pain. She describes the pain as being a constantly present but waxing and waning, severe, sharp cramping pain in her epigastric region radiating into her back. She admits to having had similar pain on one prior occasion with the diagnosis of alcoholic pancreatitis. She denies identification of aggravating or ameliorating factors for this pain until she learned that her drinking alcohol to a slight excess approximately 1 day prior to the onset of pain was most likely responsible for her current episode. In the emergency room she was found to have a lipase greater than 1400 and epigastric abdominal pain on palpation. Because of her pain and elevated lipase she was admitted to hospital for treatment of her acute mild to moderate pancreatitis." Hospital Course Hospital Course: Patient was admitted and treated with IV fluid. She was made n.p.o. She was also managed for pain. Diet was advanced to clear liquid and advance to regular as tolerated. Patient doing better now. States she recently lost her job and was going to some stress which was why she was drinking. She will go back to attending rehab meetings and states she will no longer drink alcohol, as she is convinced is the cause of her acute pancreatitis and she does not want to feel this way again. She is being discharged in improved condition. Besides going to outpatient alcohol and drug rehab, she is to follow-up with her primary care physician within 1 week. Physical Exam Vital Signs: Temp Pulse Resp BP Pulse Ox 98.6 F 97 17 132/95 H 96 08/27/18 10:51 08/27/18 10:51 08/27/18 10:51 08/27/18 10:51 08/27/18 10:51 Intake & Output 08/26/18 08/27/18 08/28/18 06:59 06:59 06:59 Intake Total 4440 1450 Balance 4440 1450 Weight 68 kg 68 kg General appearance: PRESENT: no acute distress, cooperative, well-developed, well-nourished Head exam: PRESENT: atraumatic, normocephalic Eye exam: ABSENT: conjunctival injection, scleral icterus Mouth exam: PRESENT: moist, neck supple, tongue midline Neck exam: ABSENT: lymphadenopathy Respiratory exam: PRESENT: clear to auscultation luis, unlabored. ABSENT: rales , rhonchi, wheezes Cardiovascular exam: PRESENT: RRR. ABSENT: systolic murmur Pulses: PRESENT: normal radial pulses GI/Abdominal exam: PRESENT: normal bowel sounds, soft, minimal tenderness left upper quadrant. ABSENT: distended, rebound, guarding Rectal exam: PRESENT: deferred Extremities exam: ABSENT: pedal edema Musculoskeletal exam: ABSENT: deformity Neurological exam: PRESENT: alert, awake, oriented to person, oriented to place , oriented to situation, CN II-XII grossly intact Psychiatric exam: PRESENT: appropriate affect. ABSENT: anxious Skin exam: PRESENT: dry, intact, warm Results Laboratory Results: 08/27/18 05:43 08/27/18 05:43 08/27/18 08/27/18 05:43 05:43 WBC 5.0 RBC 3.47 L Hgb 11.2 L Hct 33.3 L MCV 96 MCH 32.2 MCHC 33.6 RDW 13.5 Plt Count 267 Sodium 140.1 Potassium 3.8 Chloride 105 Carbon Dioxide 24 Anion Gap 11 BUN 3 L Creatinine 0.55 Est GFR ( Amer) > 60 Est GFR (Non-Af Amer) > 60 Glucose 95 Calcium 10.1 Total Bilirubin 0.4 AST 50 H ALT 22 Alkaline Phosphatase 41 Total Protein 6.8 Albumin 4.0 08/24/18 17:35 Clean Catch Midstream Urine Culture - Final Mixed Urogenital Crystal Impressions: Abdomen Ultrasound 08/23/18 19:07 IMPRESSION: FATTY INFILTRATION OF THE LIVER. OTHERWISE NORMAL RIGHT UPPER QUADRANT ULTRASOUND. Qualifiers - * PATIENT BEING DISCHARGED WITH ANY OF THE FOLLOWING DIAGNOSIS: No
[2018-08-27 15:26] VITALS: BP 138/87
== END 2018-08-27 16:00 | disposition home or self-care (01) | DRG 439 ==
LOC: ER 14:17 → EH 20:37 → 4W 23:00
PROVIDERS: ADMIT Emergency Medicine; ATTEND Emergency Medicine
DX: K85.20 Alcohol induced acute pancreatitis without necrosis or infection (principal); N39.0 Urinary tract infection, site not specified; K86.0 Alcohol-induced chronic pancreatitis; F41.8 Other specified anxiety disorders; F31.9 Bipolar disorder, unspecified; F43.10 Post-traumatic stress disorder, unspecified; F20.9 Schizophrenia, unspecified; F10.10 Alcohol abuse, uncomplicated; K59.03 Drug induced constipation; T50.7X5A Adverse effect of analeptics and opioid receptor antagonists, initial encounter; Y92.230 Patient room in hospital as the place of occurrence of the external cause; Y90.9 Presence of alcohol in blood, level not specified
CPT/HCPCS: 36415; 76705; 80048; 80053; 81001; 82150; 83690; 83735; 84439; 84443; 84481; 84703; 85025; 85027; 87086; 93005; 93010; 96361; 96374; 96375; 99285; J0696; J1170; J1644; J2270; J3480; J3490; J7030; S0028; S0119

== ENCOUNTER 2019-06-30 22:54 | Inpatient (IN) | payer SELFPAY ==
--- NOTE | 2019-07-01 00:05 | ER Document Report ---
ED General - General Chief Complaint: Abdominal Pain Stated Complaint: ABDOMINAL PAIN Time Seen by Provider: 06/30/19 23:58 TRAVEL OUTSIDE OF THE [place] IN LAST 30 DAYS: No - HPI Notes: This is a 38-year-old female who presents complaining of left-sided abdominal pain that has been sharp and intermittent x1 day. Patient states she has had 2 episodes of vomiting. Patient also states that she cannot find a comfortable position to lay in because of the pain. She describes the pain as sharp. Patient denies . Patient is lying in bed in obvious discomfort. Patient has her legs flexed at the knees with her feet planted on the bed. Patient states she is tried taking Tylenol without relief of symptoms. Patient states she has irregular bowel movements. Patient states her last bowel movement was this morning. Patient also states that she has been "eating a lot at fast food lately" and thinks this may have something to do with the symptoms she presents with tonight. Patient denies diarrheal stools, fever. Patient denies urinary frequency, dysuria, hematuria. Differential diagnosis: Ureteral stone, ectopic , appendicitis, diverticulitis, constipation, infectious colitis, food toxicity. Plan: Check CBC CMP urinalysis, serum quantitative . Order IV access, treat patient initially with IV Toradol and Zofran for relief of symptoms. Depending on the results of the test, imaging will be determined, i.e., CT abdomen pelvis without contrast versus pelvic obstetric ultrasound. - Related Data Allergies/Adverse Reactions: No Known Allergies Allergy (Verified 06/27/17 12:56) Past Medical History - General Information source: Patient - Social History Smoking Status: Current Some Day Smoker - pt states she smokes cigars Frequency of alcohol use: Occasional Drug Abuse: None Lives with: Spouse/Significant other Family History: Arthritis, Other - RA mother. denies: CAD, COPD, CVA, DM, Hyperlipidemia, Hypertension, Malignancy, Thyroid Disfunction Patient has suicidal ideation: No Patient has homicidal ideation: No - Past Medical History Cardiac Medical History: Denies: Hx Coronary Artery Disease, Hx DVT, Hx Hypercholesterolemia, Hx Hypertension, Hx Pulmonary Embolism Pulmonary Medical History: Reports: Hx Bronchitis Denies: Hx Asthma, Hx COPD, Hx Respiratory Failure, Hx Sleep Apnea Neurological Medical History: Denies: Hx Seizures Endocrine Medical History: Denies: Hx Diabetes Mellitus Type 1, Hx Diabetes Mellitus Type 2 Renal/ Medical History: Denies: Hx Ectopic , Hx Peritoneal Dialysis Malignancy Medical History: Reports: None GI Medical History: Denies: Hx Cirrhosis, Hx Crohn's Disease, Hx Hepatitis, Hx Ulcerative Colitis Musculoskeletal Medical History: Reports Hx Arthritis, Denies Hx Gout, Reports Hx Musculoskeletal Deformity, Reports Hx Musculoskeletal Trauma Skin Medical History: Denies Hx Eczema, Denies Hx Psoriasis Psychiatric Medical History: Reports: Hx Anxiety, Hx Bipolar Disorder, Hx Depression, Hx Post Traumatic Stress Disorder, Hx Schizophrenia Infectious Medical History: Denies: Hx Hepatitis Review of Systems - Review of Systems Constitutional: No symptoms reported EENT: No symptoms reported Cardiovascular: No symptoms reported Respiratory: No symptoms reported Gastrointestinal: See HPI, Abdominal pain, Nausea, Vomiting, Constipation Genitourinary: No symptoms reported Female Genitourinary: No symptoms reported Musculoskeletal: No symptoms reported Skin: No symptoms reported Hematologic/Lymphatic: No symptoms reported Neurological/Psychological: No symptoms reported -: Yes All other systems reviewed and negative Physical Exam - Vital signs Vitals: Temp Pulse Resp BP Pulse Ox 98.1 F 80 18 123/83 99 06/30/19 22:58 06/30/19 22:58 06/30/19 22:58 06/30/19 22:58 06/30/19 22:58 - Notes Notes: PHYSICAL EXAMINATION: GENERAL: Ill-appearing, well-nourished and in mild acute distress. HEAD: Atraumatic, normocephalic. EYES: Pupils equal round and reactive to light, extraocular movements intact, sclera anicteric, conjunctiva are normal. ENT: nares patent, oropharynx clear without exudates. Moist mucous membranes. NECK: Normal range of motion, supple without lymphadenopathy LUNGS: Breath sounds clear to auscultation bilaterally and equal. No wheezes rales or rhonchi. HEART: Tachycardic without murmurs ABDOMEN: Soft, tender to palpation in the left middle quadrant, hypoactive bowel sounds. No guarding, no rebound. No masses appreciated. EXTREMITIES: Normal range of motion, no pitting or edema. No cyanosis. BACK: No cva tenderness bilaterally on percussion NEUROLOGICAL: No focal neurological deficits. Moves all extremities spontaneously and on command. PSYCH: Normal mood, normal affect. SKIN: Warm, Dry, normal turgor, no rashes or lesions noted. Course - Re-evaluation Re-evalutation: 07/01/19 02:24 Findings on laboratory work discussed with patient and patient's boyfriend. Work-up to this point is significant for a negative urine test and a elevated lipase. Patient states that she started trazodone approximately 2 weeks ago for insomnia. 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 She saw her PCP at [facility] 2 weeks ago and was given a prescription for trazodone. Also of note, patient denies any known personal history of schizophrenia. This was documented in the medical record. However, this MD finds the patient's thought, mood, affect and overall interaction during the interview inconsistent with schizophrenia. Patient has good eye contact, is well spoken, has rational thought, exhibits good judgment. Patient states she has gotten a great deal of relief from the IV toradol and zofran ordered for her. Plan at this point is to give the patient had a 1 L bolus of normal saline, obtain a CT abdomen pelvis with IV contrast, discussed findings of the CAT scan with the patient and patient's boyfriend and develop a disposition plan for the patient. - Vital Signs Vital signs: Temp Pulse Resp BP Pulse Ox 98.1 F 80 18 123/83 99 06/30/19 22:58 06/30/19 22:58 06/30/19 22:58 06/30/19 22:58 06/30/19 22:58 07/01/19 02:31 Vital signs reviewed by this MD. - Laboratory Result Diagrams: 06/30/19 23:55 06/30/19 23:55 Laboratory results interpreted by me: 06/30/19 06/30/19 07/01/19 23:55 23:55 00:00 RDW 15.9 H AST 38 H Lipase 2081.5 H Urine Ketones 20 H All laboratory findings reviewed by this MD. - Transfer of Care Care transferred to following provider: MICHELLE LOZA MD AT 0320 AM Discharge - Discharge Clinical Impression: Abdominal pain, Acute pancreatitis Disposition: OTHER
[2019-07-01 00:32] LABS: ABSOLUTE LYMPHOCYTES (AUTO) 1.1 10^3/uL (0.5-4.7); ABSOLUTE MONOCYTES (AUTO) 0.6 10^3/uL (0.1-1.4); BASOPHILS % (AUTO) 0.5 % (0-2); EOSINOPHILS % (AUTO) 0.1 % (0-6); HEMATOCRIT 37.3 % (36.0-47.0); HEMOGLOBIN 12.6 g/dL (12.0-15.5); LYMPHOCYTES % (AUTO) 19.8 % (13-45); MEAN CORPUSCULAR HEMOGLOBIN 32.2 pg (27.0-33.4); MEAN CORPUSCULAR HGB CONC 33.8 g/dL (32.0-36.0); MEAN CORPUSCULAR VOLUME 95 fl (80-97); MONOCYTES % (AUTO) 10.2 % (3-13); PLATELET COUNT 224 10^3/uL (150-450); RED BLOOD COUNT 3.91 10^6/uL (3.72-5.28); RED CELL DISTRIBUTION WIDTH 15.9 % (11.5-14.0); SEGMENTED NEUTROPHILS % (AUTO) 69.4 % (42-78); TOTAL CELLS COUNTED % (AUTO) 100 %; WHITE BLOOD COUNT 5.7 10^3/uL (4.0-10.5)
[2019-07-01] MEDS ORDERED: KETOROLAC TROMETHAMINE INJ/PF 30 MG/1 ML SDV IV ONE (00:32)
[2019-07-01 00:33] LABS: APPEARANCE,URINE CLEAR; BILIRUBIN,URINE NEGATIVE (NEGATIVE); COLOR,URINE YELLOW; GLUCOSE, URINE NEGATIVE (NEGATIVE); KETONES,URINE 20 mg/dL (NEGATIVE); LEUKOCYTE ESTERASE,URINE NEGATIVE (NEGATIVE); NITRITE,URINE NEGATIVE (NEGATIVE); PROTEIN,URINE NEGATIVE (NEGATIVE); UROBILINOGEN,URINE NEGATIVE mg/dL (<2.0)
[2019-07-01] MEDS ORDERED: ONDANSETRON HCL INJ/PF 4 MG/2 ML SDV IV ONE (00:33)
[2019-07-01 00:47] LABS: ALBUMIN 4.4 g/dL (3.5-5.0); ALKALINE PHOSPHATASE 48 U/L (38-126); ANION GAP 11 (5-19); ASPARTATE AMINO TRANSFERASE 38 U/L (14-36); BILIRUBIN,DIRECT 0.1 mg/dL (0.0-0.4); BILIRUBIN,TOTAL 0.4 mg/dL (0.2-1.3); BLOOD UREA NITROGEN 11 mg/dL (7-20); CALCIUM 9.8 mg/dL (8.4-10.2); CARBON DIOXIDE 23 mmol/L (22-30); CHLORIDE 104 mmol/L (98-107); GLUCOSE 104 mg/dL (75-110); POTASSIUM 3.7 mmol/L (3.6-5.0); TOTAL PROTEIN 7.5 g/dL (6.3-8.2)
[2019-07-01] MEDS ORDERED: NORMAL SALINE 1000 ML 1,000 ML IV ONE (01:30)
--- NOTE | 2019-07-01 02:55 | RADIOLOGY REPORT (SQ) ---
CT abdomen and pelvis with contrast on 07/01/2019 at 2:14 AM CLINICAL INDICATION: Left upper quadrant and left lower quadrant abdominal pain, elevated lipase TECHNIQUE: Multiple axial images are obtained throughout the abdomen and pelvis following the administration of IV contrast, 69 mL of Omnipaque 350 contrast was administered intravenously without complication. This exam was performed according to our departmental dose-optimization program, which includes automated exposure control, adjustment of the mA and/or kV according to patient size and/or use of iterative reconstruction technique. Total DLP is 506.26 mGy*cm. COMPARISON: 01/02/2018 FINDINGS: Abdomen: There are stable nodular densities within the bilateral breasts most likely representing cysts and/or fibroadenomas. The patient is at an age for initial screening mammogram and if this has not been performed would recommend follow-up initial mammogram to better evaluate the bilateral breasts. The lung bases are clear. There is fatty infiltration of the liver. There is fairly extensive peripancreatic fluid and stranding consistent with significant acute pancreatitis. No pancreatic necrosis is noted. There is narrowing of the splenic vein near the confluence with the SMV likely sequela from pancreatitis. No other complication of pancreatitis is noted. The solid abdominal organs are otherwise unremarkable. There is no abdominal adenopathy. There is no free air in the abdomen. The abdominal portion of the GI tract is unremarkable. Pelvis: Small amount of free fluid in the pelvis may just be physiologic. Pelvic organs appear unremarkable by CT. There is no pelvic adenopathy. Pelvic portion of the GI tract including the appendix is unremarkable. No bony abnormality is noted. IMPRESSION: 1. Findings consistent with significant acute pancreatitis. There is some narrowing of the splenic vein near the midline with no other definite complication of pancreatitis noted at this time. 2. Mild fatty infiltration of the liver. 3. Stable nodular densities in the bilateral breasts most likely representing cysts and/or fibroadenomas. The patient however is at an age for initial baseline screening mammography. If this has not been performed would recommend baseline mammogram.
[2019-07-01] MEDS ORDERED: HYDROMORPHONE HCL INJ/PF 2 MG/ML AMPULE IV ONE ×2 (03:08→03:22)
[2019-07-01] MEDS: HEPARIN SOD (PORCINE) 5,000 UNIT/ML 1 ML VIAL SUBCUT SCH ×3 (05:35→21:07)
[2019-07-01] MEDS: MORPHINE SULFATE 10 MG/ML INJ IV PRN ×2 (05:35→07:52)
--- NOTE | 2019-07-01 07:31 | PDOC H&P ---
History of Present Illness Admission Date/PCP: 07/01/2019 04:15 No local PCP Patient complains of: Abdominal pain History of Present Illness: CHRISTINE RODGERS is a 38 year old female who presented to the emergency room with a 1 day history of abdominal pain. She admits to progressively worsening abdominal pain beginning on the morning of 06/30/2018. The abdominal pain is a severe sharp constant pain in her left upper and epigastric abdomen with radiation through to her back. The pain is made worse by movement and eating. The pain is been accompanied by nausea with 2 episodes of vomiting. She tried taking Tylenol at home with no relief of her pain. She feels like the pain may be due to her recent increased consumption of fast food. She admits having consumed 2 alcoholic beverages on the evening of 06/28/2019. She admits prior similar episodes related to alcoholic pancreatitis. She has not identified any additional aggravating or ameliorating factors for her abdominal pain. In the emergency room she is found to have a lipase of [address] scan of the abdomen and pelvis demonstrating acute pancreatitis without pseudocyst formation. She was subsequently admitted to the hospital for further evaluation treatment. Past Medical History Cardiac Medical History: Denies: Coronary Artery Disease, DVT, Hyperlipidema, Hypertension, Pulmonary Embolism Pulmonary Medical History: Reports: Bronchitis Denies: Asthma, Chronic Obstructive Pulmonary Disease (COPD), Respiratory Failure, Sleep Apnea EENT Medical History: Denies: Cataracts, Ears - Hearing aids Neurological Medical History: Denies: Hemorrhagic CVA, Ischemic CVA, Seizures Endocrine Medical History: Denies: Diabetes Mellitus Type 1, Diabetes Mellitus Type 2, Hyperthyroidism, Hypothyroidism Renal/ Medical History: Denies: Chronic Kidney Disease, Nephrolithiasis Malignancy Medical History: Reports: None GI Medical History: Reports: Other - Pancreatitis Denies: Cirrhosis, Crohn's Disease, Hepatitis, Ulcerative Colitis Musculoskeltal Medical History: Reports: Arthritis Denies: Gout Skin Medical History: Denies: Eczema, Psoriasis Psychiatric Medical History: Reports: Alcohol Dependency, Bipolar Disorder, Depression, Post Traumatic Stress Disorder, Tobacco Dependency Denies: Substance Abuse Traumatic Medical History: Reports: None Hematology: Denies: Anemia, Bleeding Tendencies Infectious Medical History: Reports: None Past Surgical History Past Surgical History: Reports: None Social History Information Source: Patient Lives with: Spouse/Significant other Smoking Status: Current Some Day Smoker - pt states she smokes cigars Electronic Cigarette use?: No Frequency of Alcohol Use: Rare - Patient has drastically reduced her alcohol con sumption but after many weeks of not consuming alcohol she had 2 drinks on the evening of 06/28/2019 Hx Recreational Drug Use: No Drugs: None Hx Prescription Drug Abuse: No - Advance Directive Resuscitation Status: Full Code Surrogate healthcare decision maker:: Gracia Jimenez Family History Family History: Arthritis - Rheumatoid arthritis in her mother. denies: CAD, COPD, CVA, DM, Hyperlipidemia, Hypertension, Malignancy, Thyroid Disfunction Parental Family History Reviewed: Yes Children Family History Reviewed: No Sibling(s) Family History Reviewed.: Yes Medication/Allergy Home Medications: Paliperidone Palmitate [Invega Trinza] 156 mg IM [id number] 08/24/18 Prazosin HCl [Minipress] 2 mg PO QHS 08/24/18 Trazodone HCl [Desyrel] 150 mg PO QHS PRN 08/24/18 Acetaminophen [Tylenol 325 mg Tablet] 650 mg PO Q4HP PRN tablet 08/27/18 Allergies/Adverse Reactions: No Known Allergies Allergy (Verified 06/27/17 12:56) Review of Systems Constitutional: ABSENT: chills, fever(s) Eyes: ABSENT: visual disturbances, other - Eye pain Ears: ABSENT: hearing changes, other - Ear pain Nose, Mouth, and Throat: ABSENT: mouth pain, sore throat Cardiovascular: ABSENT: chest pain, palpitations Respiratory: ABSENT: cough, dyspnea Gastrointestinal: PRESENT: as per HPI, abdominal pain, nausea, vomiting. ABSENT: constipation, diarrhea, hematemesis Genitourinary: ABSENT: dysuria, hematuria Musculoskeletal: ABSENT: back pain, joint swelling, muscle weakness Integumentary: ABSENT: pruritus, rash Neurological: ABSENT: confusion, convulsions, focal weakness, memory loss, syncope Psychiatric: ABSENT: anxiety, depression Endocrine: ABSENT: cold intolerance, heat intolerance Hematologic/Lymphatic: ABSENT: easy bleeding, easy bruising Allergic/Immunologic: ABSENT: seasonal rhinorrhea Physical Exam Vital Signs: Temp Pulse Resp BP Pulse Ox 98.4 F 66 16 141/85 H 100 07/01/19 03:34 07/01/19 03:34 07/01/19 03:34 07/01/19 03:34 07/01/19 03:34 Intake & Output 06/29/19 06/30/19 07/01/19 23:59 23:59 23:59 Intake Total 1000 Balance 1000 Weight 60.1 kg General appearance: PRESENT: cooperative, mild distress - Secondary to abdominal pain Head exam: PRESENT: atraumatic, normocephalic Eye exam: PRESENT: conjunctiva pink. ABSENT: conjunctival injection, scleral icterus Ear exam: PRESENT: normal external ear exam. ABSENT: bleeding, drainage Mouth exam: PRESENT: dry mucosa, neck supple Neck exam: ABSENT: thyromegaly, tracheal deviation Respiratory exam: PRESENT: clear to auscultation luis, symmetrical, unlabored Cardiovascular exam: PRESENT: RRR. ABSENT: clicks, gallop, rubs Pulses: PRESENT: normal radial pulses, normal dorsalis pedis pul Vascular exam: PRESENT: normal capillary refill. ABSENT: pallor GI/Abdominal exam: PRESENT: normal bowel sounds, soft, tenderness - Moderate tenderness palpation in the epigastrium and left upper quadrant Rectal exam: PRESENT: deferred Extremities exam: ABSENT: joint swelling, pedal edema Musculoskeletal exam: ABSENT: deformity, dislocation Neurological exam: PRESENT: alert, oriented to person, oriented to place, oriented to time, oriented to situation, CN II-XII grossly intact. ABSENT: motor sensory deficit Psychiatric exam: PRESENT: appropriate affect, normal mood Skin exam: PRESENT: dry, intact, warm. ABSENT: jaundice, rash, urticaria Results Laboratory Results: 06/30/19 23:55 06/30/19 23:55 06/30/19 06/30/19 07/01/19 23:55 23:55 00:00 WBC 5.7 RBC 3.91 Hgb 12.6 Hct 37.3 MCV 95 MCH 32.2 MCHC 33.8 RDW 15.9 H Plt Count 224 Seg Neutrophils % 69.4 Sodium 138.3 Potassium 3.7 Chloride 104 Carbon Dioxide 23 Anion Gap 11 BUN 11 Creatinine 0.55 Est GFR ( Amer) > 60 Glucose 104 Calcium 9.8 Total Bilirubin 0.4 AST 38 H Alkaline Phosphatase 48 Total Protein 7.5 Albumin 4.4 Lipase 2081.5 H Urine Color YELLOW Urine Appearance CLEAR Urine pH 5.0 Ur Specific [place] 1.030 Urine Protein NEGATIVE Urine Glucose (UA) NEGATIVE Urine Ketones 20 H Urine Blood NEGATIVE Urine Nitrite NEGATIVE Ur Leukocyte Esterase NEGATIVE Urine WBC (Auto) 5 Urine RBC (Auto) 4 Impressions: Abdomen/Pelvis CT 07/01/19 01:34 IMPRESSION: 1. Findings consistent with significant acute pancreatitis. There is some narrowing of the splenic vein near the midline with no other definite complication of pancreatitis noted at this time. 2. Mild fatty infiltration of the liver. 3. Stable nodular densities in the bilateral breasts most likely representing cysts and/or fibroadenomas. The patient however is at an age for initial baseline screening mammography. If this has not been performed would recommend baseline mammogram. Assessment and Plan - Diagnosis (1) Abdominal pain Qualifiers: Abdominal location: upper abdomen, unspecified Qualified Code(s): R10.10 - Upper abdominal pain, unspecified Is this a current diagnosis for this admission?: Yes Plan: His abdominal pain will be treated with IV fluids and other supportive and symptomatic cares. She will also receive morphine sulfate 2 to 4 mg IV every 2 hours on a as needed basis using a sliding scale for pain. (2) Acute on chronic pancreatitis Is this a current diagnosis for this admission?: Yes Plan: Patient be treated with supportive and symptomatic cares. She will receive IV fluid and will initially have GI rest until she develops an appetite for oral intake at which time she can be converted from clear liquids to a more hearty diet with supplemental pancreatic enzymes given with meals. Daily CBCs, metabolic profiles, amylase levels, lipase levels and magnesium levels will be obtained. (3) Nausea and vomiting Qualifiers: Vomiting type: unspecified Vomiting Intractability: non-intractable Qualified Code(s): R11.2 - Nausea with vomiting, unspecified Is this a current diagnosis for this admission?: Yes Plan: Patient's nausea and vomiting be treated with IV Zofran 4 mg every 4 hours on a as needed basis. (4) Bipolar disorder Qualifiers: Active/Remission status: remission status unspecified Qualified Code(s): F31.9 - Bipolar disorder, unspecified Is this a current diagnosis for this admission?: Yes Plan: Patient will be continued on her usual bipolar medications as soon as she is able to tolerate oral intake. (5) Tobacco use disorder, moderate, dependence Is this a current diagnosis for this admission?: Yes Plan: Smoking cessation is advised and counseled briefly at the bedside. A nicotine replacement patch is available for patients use, if desired - Time Time Spent with patient: 15-24 minutes Medications reviewed and adjusted accordingly: Yes Anticipated discharge: Home - Inpatient Certification Based on my medical assessment, after consideration of the patient's comorbidities, presenting symptoms, or acuity I expect that the services needed warrant INPATIENT care.: Yes I certify that my determination is in accordance with my understanding of Medicare's requirements for reasonable and necessary INPATIENT services [42 CFR 412.3e].: Yes Medical Necessity: Need Close Monitoring Due to Risk of Patient Decompensation, Need For IV Fluids, Need for Pain Control, Risk of Complication if Not Cared For in Hospital, Risk of Diagnosis Which Will Require Inpatient Eval/Care/Monitoring
[2019-07-01] MEDS ORDERED: MAGNESIUM HYDROXIDE SUSP 30 ML UDCUP PO PRN (07:56)
[2019-07-01] MEDS ORDERED: MAG HYDROX/AL HYDROX/SIMETH SUSP 30 ML UDCUP PO PRN (07:56)
[2019-07-01] MEDS ORDERED: ACETAMINOPHEN 650 MG SUPP.RECT PR PRN (08:01)
[2019-07-01] MEDS ORDERED: NICOTINE 21 MG/24 HR PATCH.TD24 TD PRN (08:01)
[2019-07-01] MEDS ORDERED: ACETAMINOPHEN 325 MG TABLET PO PRN (08:01)
[2019-07-01] MEDS ORDERED: MORPHINE SULFATE 10 MG/ML INJ IV PRN ×4 (08:01→09:15)
[2019-07-01] MEDS ORDERED: HYDRALAZINE HCL INJ/PF 20 MG/1 ML SDV IV PRN (08:01)
[2019-07-01] MEDS: FAMOTIDINE INJ/PF 20 MG/2 ML SDV IV SCH ×2 (09:38→21:07)
[2019-07-01] MEDS: RINGERS SOLUTION,LACTATED 1,000 ML IV PRN ×2 (09:39→15:52)
[2019-07-01] MEDS: DOCUSATE SODIUM 100 MG CAPSULE PO SCH ×2 (09:45→17:33)
[2019-07-01] MEDS: METOCLOPRAMIDE HCL INJ/PF 10 MG/2 ML SDV IV SCH ×4 (09:47→21:05)
[2019-07-01] MEDS ORDERED: DOCUSATE SODIUM 100 MG/10 ML UDC PO SCH (10:00)
[2019-07-01] MEDS ORDERED: KETOROLAC TROMETHAMINE INJ/PF 30 MG/1 ML SDV ONE (12:06)
[2019-07-01] MEDS ORDERED: KETOROLAC TROMETHAMINE INJ/PF 30 MG/1 ML SDV IV SCH ×2 (13:00→18:00)
[2019-07-01] MEDS ORDERED: NALBUPHINE HCL INJ 10 MG/1 ML AMPULE ONE (20:46)
[2019-07-01] MEDS ORDERED: ONDANSETRON HCL INJ/PF 4 MG/2 ML SDV ONE (20:47)
[2019-07-01] MEDS ORDERED: ONDANSETRON HCL INJ/PF 4 MG/2 ML SDV IV PRN (20:56)
[2019-07-01] MEDS ORDERED: KETOROLAC TROMETHAMINE INJ/PF 30 MG/1 ML SDV IV PRN (21:00)
[2019-07-01] MEDS ORDERED: NALBUPHINE HCL INJ 10 MG/1 ML AMPULE IV PRN (21:44)
[2019-07-02] MEDS: NALBUPHINE HCL INJ 10 MG/1 ML AMPULE IV PRN ×2 (00:11→05:18)
[2019-07-02] MEDS: KETOROLAC TROMETHAMINE INJ/PF 30 MG/1 ML SDV IV PRN ×4 (00:22→21:43)
[2019-07-02] MEDS: RINGERS SOLUTION,LACTATED 1,000 ML IV PRN ×2 (00:50→12:08)
[2019-07-02 05:02] LABS: HEMATOCRIT 33.1 % (36.0-47.0); HEMOGLOBIN 11.1 g/dL (12.0-15.5); MEAN CORPUSCULAR HEMOGLOBIN 32.2 pg (27.0-33.4); MEAN CORPUSCULAR HGB CONC 33.4 g/dL (32.0-36.0); MEAN CORPUSCULAR VOLUME 96 fl (80-97); PLATELET COUNT 177 10^3/uL (150-450); RED BLOOD COUNT 3.45 10^6/uL (3.72-5.28)
[2019-07-02] MEDS: HEPARIN SOD (PORCINE) 5,000 UNIT/ML 1 ML VIAL SUBCUT SCH ×3 (05:18→21:42)
[2019-07-02 05:26] LABS: AMYLASE 252 U/L (30-110); ANION GAP 7 (5-19); BLOOD UREA NITROGEN 6 mg/dL (7-20); CALCIUM 9.1 mg/dL (8.4-10.2); CARBON DIOXIDE 23 mmol/L (22-30); CHLORIDE 104 mmol/L (98-107); GLUCOSE 90 mg/dL (75-110); POTASSIUM 3.5 mmol/L (3.6-5.0)
[2019-07-02] MEDS: METOCLOPRAMIDE HCL INJ/PF 10 MG/2 ML SDV IV SCH ×4 (09:00→21:43)
--- NOTE | 2019-07-02 10:25 | PDOC PROGRESS REPORT ---
Subjective Progress Note for:: 07/02/19 Subjective:: CHRISTINE RODGERS is a 38 year old female who presented to the emergency room with a 1 day history of abdominal pain. She admits to progressively worsening abdominal pain beginning on the morning of 06/30/2018. The abdominal pain is a severe sharp constant pain in her left upper and epigastric abdomen with radiation through to her back. The pain is made worse by movement and eating. The pain is been accompanied by nausea with 2 episodes of vomiting. She tried taking Tylenol at home with no relief of her pain. She feels like the pain may be due to her recent increased consumption of fast food. She admits having consumed 2 alcoholic beverages on the evening of 06/28/2019. She admits prior similar episodes related to alcoholic pancreatitis. She has not identified any additional aggravating or ameliorating factors for her abdominal pain. In the emergency room she is found to have a lipase of [address] scan of the abdomen and pelvis demonstrating acute pancreatitis without pseudocyst formation. She was subsequently admitted to the hospital for further evaluation treatment. 07/02/2019. No acute events overnight, abdominal pain improving, passing flatus, has not had a bowel movement, tolerating some liquid, denies any fever, chills, nausea, vomiting, diarrhea or any urinary symptoms. Reason For Visit: ACUTRE ON CHRONIC ALCOHOLIC PANCREATITIS Physical Exam Vital Signs: Temp Pulse Resp BP Pulse Ox 99.3 F 74 16 141/88 H 99 07/02/19 07:54 07/02/19 07:54 07/02/19 07:54 07/02/19 07:54 07/02/19 07:54 Intake & Output 07/01/19 07/02/19 07/03/19 06:59 06:59 06:59 Intake Total 1000 2388 Output Total 0 Balance 1000 2388 Weight 60.1 kg 64.6 kg General appearance: PRESENT: no acute distress, well-developed, well-nourished Head exam: PRESENT: atraumatic, normocephalic Eye exam: PRESENT: conjunctiva pink, EOMI, PERRLA. ABSENT: scleral icterus Ear exam: PRESENT: normal external ear exam Mouth exam: PRESENT: moist, tongue midline Neck exam: ABSENT: carotid bruit, JVD, lymphadenopathy, thyromegaly Respiratory exam: PRESENT: clear to auscultation luis. ABSENT: rales, rhonchi, wheezes Cardiovascular exam: PRESENT: RRR. ABSENT: diastolic murmur, rubs, systolic murmur Pulses: PRESENT: normal dorsalis pedis pul Vascular exam: PRESENT: normal capillary refill GI/Abdominal exam: PRESENT: normal bowel sounds, soft, tenderness - Epigastric tenderness. ABSENT: distended, guarding, mass, organolmegaly, rebound Rectal exam: PRESENT: deferred Extremities exam: PRESENT: full ROM. ABSENT: calf tenderness, clubbing, pedal edema Neurological exam: PRESENT: alert, awake, oriented to person, oriented to place, oriented to time, oriented to situation, CN II-XII grossly intact. ABSENT: motor sensory deficit Psychiatric exam: PRESENT: appropriate affect, normal mood. ABSENT: homicidal ideation, suicidal ideation Skin exam: PRESENT: dry, intact, warm. ABSENT: cyanosis, rash Results Laboratory Results: 07/02/19 04:20 07/02/19 04:20 07/02/19 07/02/19 04:20 04:20 WBC 6.0 RBC 3.45 L Hgb 11.1 L Hct 33.1 L MCV 96 MCH 32.2 MCHC 33.4 RDW 16.0 H Plt Count 177 Sodium 133.6 L Potassium 3.5 L Chloride 104 Carbon Dioxide 23 Anion Gap 7 BUN 6 L Creatinine 0.44 L Est GFR ( Amer) > 60 Glucose 90 Calcium 9.1 Magnesium 1.3 L Amylase 252 H Lipase 1717.2 H Impressions: Abdomen/Pelvis CT 07/01/19 01:34 IMPRESSION: 1. Findings consistent with significant acute pancreatitis. There is some narrowing of the splenic vein near the midline with no other definite complication of pancreatitis noted at this time. 2. Mild fatty infiltration of the liver. 3. Stable nodular densities in the bilateral breasts most likely representing cysts and/or fibroadenomas. The patient however is at an age for initial baseline screening mammography. If this has not been performed would recommend baseline mammogram. Assessment and Plan - Diagnosis (1) Acute alcoholic pancreatitis Qualifiers: Acute pancreatitis complication: no infection or necrosis Qualified Code(s): K85.20 - Alcohol induced acute pancreatitis without necrosis or infection Is this a current diagnosis for this admission?: Yes Plan: History of recurrent alcoholic pancreatitis. Abdominal pain improving. Tolerating some liquids. WBC WNL. Afebrile. Denies any fever or chills. Continue aggressive volume resuscitation guided by volume status, opioid and non-opioid analgesics, encourage p.o. intake as tolerated. Extensively counseled on abstinence from EtOH. (2) Nausea and vomiting Qualifiers: Vomiting type: unspecified Vomiting Intractability: non-intractable Qualified Code(s): R11.2 - Nausea with vomiting, unspecified Is this a current diagnosis for this admission?: Yes Plan: Due to underlying pancreatitis. Denies any vomiting. Still nauseous. Continue IV and oral antiemetics. Monitor volume status and electrolytes. (3) Tobacco use disorder, moderate, dependence Is this a current diagnosis for this admission?: Yes Plan: Extensively counseled on abstinence. Nicotine patch provided. (4) Bipolar disorder Qualifiers: Active/Remission status: remission status unspecified Qualified Code(s): F31.9 - Bipolar disorder, unspecified Is this a current diagnosis for this admission?: Yes Plan: Restart home meds. Outpatient psychiatry follow-up. (5) Hypokalemia Is this a current diagnosis for this admission?: Yes Plan: Likely due to GI losses. No EKG changes. Continue oral supplement. Potassium level tomorrow. (6) Hypomagnesemia Is this a current diagnosis for this admission?: Yes Plan: Likely due to GI losses. No EKG changes. Continue oral supplement. Magnesium level tomorrow.
[2019-07-02] MEDS: DOCUSATE SODIUM 100 MG CAPSULE PO SCH ×2 (10:39→17:13)
[2019-07-02] MEDS: FAMOTIDINE INJ/PF 20 MG/2 ML SDV IV SCH ×2 (10:39→21:43)
[2019-07-03] MEDS: RINGERS SOLUTION,LACTATED 1,000 ML IV PRN (02:18)
[2019-07-03 05:27] LABS: HEMOGLOBIN 10.7 g/dL (12.0-15.5); MEAN CORPUSCULAR HGB CONC 33.4 g/dL (32.0-36.0); MEAN CORPUSCULAR VOLUME 96 fl (80-97); PLATELET COUNT 166 10^3/uL (150-450); RED BLOOD COUNT 3.34 10^6/uL (3.72-5.28); RED CELL DISTRIBUTION WIDTH 15.6 % (11.5-14.0); WHITE BLOOD COUNT 4.3 10^3/uL (4.0-10.5)
[2019-07-03] MEDS: HEPARIN SOD (PORCINE) 5,000 UNIT/ML 1 ML VIAL SUBCUT SCH ×2 (05:43→13:30)
[2019-07-03] MEDS: KETOROLAC TROMETHAMINE INJ/PF 30 MG/1 ML SDV IV PRN (05:44)
[2019-07-03 05:47] LABS: ALBUMIN 3.3 g/dL (3.5-5.0); ALKALINE PHOSPHATASE 33 U/L (38-126); AMYLASE 226 U/L (30-110); ANION GAP 9 (5-19); ASPARTATE AMINO TRANSFERASE 24 U/L (14-36); BILIRUBIN,DIRECT 0.1 mg/dL (0.0-0.4); BILIRUBIN,TOTAL 0.5 mg/dL (0.2-1.3); BLOOD UREA NITROGEN 4 mg/dL (7-20); CALCIUM 8.9 mg/dL (8.4-10.2); CARBON DIOXIDE 22 mmol/L (22-30); CHLORIDE 106 mmol/L (98-107); GLUCOSE 85 mg/dL (75-110); POTASSIUM 3.3 mmol/L (3.6-5.0); TOTAL PROTEIN 5.8 g/dL (6.3-8.2)
[2019-07-03] MEDS ORDERED: POTASSIUM CHLORIDE 10 MEQ CAPSULE.ER PO ONE (09:00)
[2019-07-03] MEDS: METOCLOPRAMIDE HCL INJ/PF 10 MG/2 ML SDV IV SCH ×2 (09:07→10:54)
[2019-07-03] MEDS: MAGNESIUM SULFATE/D5W 1 GM/100 ML RTUPB IV SCH ×2 (09:11→10:54)
[2019-07-03] MEDS: DOCUSATE SODIUM 100 MG CAPSULE PO SCH (09:16)
[2019-07-03 09:17] LABS: CHOLESTEROL 117.56 mg/dL (0-200); TRIGLYCERIDES 89 mg/dL (<150)
[2019-07-03] MEDS: FAMOTIDINE INJ/PF 20 MG/2 ML SDV IV SCH (09:17)
[2019-07-03 09:28] LABS: DIRECT LDL 58 mg/dL (<100)
[2019-07-03 15:20] LABS: POTASSIUM 3.8 mmol/L (3.6-5.0)
[2019-07-03 16:39] VITALS: BP 150/88
[2019-07-03] MEDS ORDERED: FAMOTIDINE 20 MG TABLET PO SCH (22:00)
--- NOTE | 2019-07-04 19:12 | PDOC DISCHARGE SUMMARY ---
Impression - Admit/DC Date/PCP Admission Date/Primary Care Provider: 07/01/19 04:57 Discharge Date: 07/03/19 - Discharge Diagnosis (1) Acute alcoholic pancreatitis Is this a current diagnosis for this admission?: Yes (2) Alcohol abuse Is this a current diagnosis for this admission?: Yes - Additional Information Resuscitation Status: Full Code Discharge Diet: As Tolerated Discharge Activity: Activity As Tolerated Referrals: MANNIE SALAMANCA NP [[facility] STAFF] - 07/13/19 9:00 am (Please arrive on time to complete paperwork.) History of Present Illiness History of Present Illness: Admitting hospitalist's H&P: CHRISTINE RODGERS is a 38 year old female who presented to the emergency room with a 1 day history of abdominal pain. She admits to progressively worsening abdominal pain beginning on the morning of 06/30/2018. The abdominal pain is a severe sharp constant pain in her left upper and epigastric abdomen with radiation through to her back. The pain is made worse by movement and eating. The pain is been accompanied by nausea with 2 episodes of vomiting. She tried taking Tylenol at home with no relief of her pain. She feels like the pain may be due to her recent increased consumption of fast food. She admits having consumed 2 alcoholic beverages on the evening of 06/28/2019. She admits prior similar episodes related to alcoholic pancreatitis. She has not identified any additional aggravating or ameliorating factors for her abdominal pain. In the emergency room she is found to have a lipase of [address] scan of the abdomen and pelvis demonstrating acute pancreatitis without pseudocyst formation. She was subsequently admitted to the hospital for further evaluation treatment. Hospital Course Hospital Course: This is a 38-year-old female who was admitted for acute alcoholic pancreatitis. She was initially made n.p.o. and was started on IV fluids. She was also started on IV pain medications. She did significantly improve. Her diet was at 11 bands. She did not require any further IV pain medications. She tolerated full diet well and had complete resolution of the abdominal pain. She did report that she was drinking rhum prior to this episode. She was counseled in length about refraining from alcohol drinking as this is already her second time having acute pancreatitis. Physical Exam Vital Signs: Temp Pulse Resp BP Pulse Ox 99.0 F 73 16 150/88 H 97 07/03/19 16:37 07/03/19 16:37 07/03/19 16:37 07/03/19 16:37 07/03/19 16:37 Intake & Output 07/03/19 07/04/19 07/05/19 06:59 06:59 06:59 Intake Total 2480 932 Balance 2480 932 Weight 144 lb 6.444 oz General appearance: PRESENT: no acute distress, well-developed, well-nourished Head exam: PRESENT: atraumatic, normocephalic Eye exam: PRESENT: conjunctiva pink, EOMI, PERRLA. ABSENT: scleral icterus Ear exam: PRESENT: normal external ear exam Mouth exam: PRESENT: moist, tongue midline Neck exam: ABSENT: carotid bruit, JVD, lymphadenopathy, thyromegaly Respiratory exam: PRESENT: clear to auscultation luis. ABSENT: rales, rhonchi, wheezes Cardiovascular exam: PRESENT: RRR. ABSENT: diastolic murmur, rubs, systolic murmur Pulses: PRESENT: normal dorsalis pedis pul GI/Abdominal exam: PRESENT: normal bowel sounds, soft. ABSENT: distended, guarding, mass, organolmegaly, rebound, tenderness Rectal exam: PRESENT: deferred Extremities exam: PRESENT: full ROM. ABSENT: calf tenderness, clubbing, pedal edema Neurological exam: PRESENT: alert, awake, oriented to person, oriented to place, oriented to time, oriented to situation, CN II-XII grossly intact. ABSENT: motor sensory deficit Results Laboratory Results: WBC 4.3 10^3/uL (4.0-10.5) 07/03/19 04:04 RBC 3.34 10^6/uL (3.72-5.28) L 07/03/19 04:04 Hgb 10.7 g/dL (12.0-15.5) L 07/03/19 04:04 Hct 32.0 % (36.0-47.0) L 07/03/19 04:04 MCV 96 fl (80-97) 07/03/19 04:04 MCH 32.0 pg (27.0-33.4) 07/03/19 04:04 MCHC 33.4 g/dL (32.0-36.0) 07/03/19 04:04 RDW 15.6 % (11.5-14.0) H 07/03/19 04:04 Plt Count 166 10^3/uL (150-450) 07/03/19 04:04 Lymph % (Auto) 19.8 % (13-45) 06/30/19 23:55 [place] % (Auto) 10.2 % (3-13) 06/30/19 23:55 Eos % (Auto) 0.1 % (0-6) 06/30/19 23:55 Baso % (Auto) 0.5 % (0-2) 06/30/19 23:55 Absolute Neuts (auto) 4.0 10^3/uL (1.7-8.2) 06/30/19 23:55 Absolute Lymphs (auto) 1.1 10^3/uL (0.5-4.7) 06/30/19 23:55 Absolute Monos (auto) 0.6 10^3/uL (0.1-1.4) 06/30/19 23:55 Absolute Eos (auto) 0.0 10^3/uL (0.0-0.6) 06/30/19 23:55 Absolute Basos (auto) 0.0 10^3/uL (0.0-0.2) 06/30/19 23:55 Seg Neutrophils % 69.4 % (42-78) 06/30/19 23:55 Sodium 136.6 mmol/L (137-145) L 07/03/19 04:04 Potassium 3.8 mmol/L (3.6-5.0) 07/03/19 13:40 Chloride 106 mmol/L (98-107) 07/03/19 04:04 Carbon Dioxide 22 mmol/L (22-30) 07/03/19 04:04 Anion Gap 9 (5-19) 07/03/19 04:04 BUN 4 mg/dL (7-20) L 07/03/19 04:04 Creatinine 0.49 mg/dL (0.52-1.25) L 07/03/19 04:04 Est GFR ( Amer) > 60 (>60) 07/03/19 04:04 Est GFR (MDRD) Non-Af > 60 (>60) 07/03/19 04:04 Glucose 85 mg/dL (75-110) 07/03/19 04:04 Calcium 8.9 mg/dL (8.4-10.2) 07/03/19 04:04 Magnesium 1.9 mg/dL (1.6-2.3) 07/03/19 13:40 Total Bilirubin 0.5 mg/dL (0.2-1.3) 07/03/19 04:04 Direct Bilirubin 0.1 mg/dL (0.0-0.4) 07/03/19 04:04 Neonat Total Bilirubin Not Reportable 07/03/19 04:04 Neonat Direct Bilirubin Not Reportable 07/03/19 04:04 Neonat Indirect Bili Not Reportable 07/03/19 04:04 AST 24 U/L (14-36) 07/03/19 04:04 ALT 9 U/L (<35) 07/03/19 04:04 Alkaline Phosphatase 33 U/L (38-126) L 07/03/19 04:04 Total Protein 5.8 g/dL (6.3-8.2) L 07/03/19 04:04 Albumin 3.3 g/dL (3.5-5.0) L 07/03/19 04:04 Triglycerides 89 mg/dL (<150) 07/03/19 04:04 Cholesterol 117.56 mg/dL (0-200) 07/03/19 04:04 LDL Cholesterol Direct 58 mg/dL (<100) 07/03/19 04:04 VLDL Cholesterol 18.0 mg/dL (10-31) 07/03/19 04:04 HDL Cholesterol 48 mg/dL (>40) 07/03/19 04:04 Amylase 226 U/L (30-110) H 07/03/19 04:04 Lipase 1835.6 U/L (23-300) H 07/03/19 04:04 Beta HCG, Quant < 2.39 mIU/mL (0.0-6.15) 06/30/19 23:55 Total Beta HCG NEGATIVE (NEGATIVE) 06/30/19 23:55 Urine Color YELLOW 07/01/19 00:00 Urine Appearance CLEAR 07/01/19 00:00 Urine pH 5.0 (5.0-9.0) 07/01/19 00:00 Ur Specific [place] 1.030 07/01/19 00:00 Urine Protein NEGATIVE mg/dL (NEGATIVE) 07/01/19 00:00 Urine Glucose (UA) NEGATIVE mg/dL (NEGATIVE) 07/01/19 00:00 Urine Ketones 20 mg/dL (NEGATIVE) H 07/01/19 00:00 Urine Blood NEGATIVE (NEGATIVE) 07/01/19 00:00 Urine Nitrite NEGATIVE (NEGATIVE) 07/01/19 00:00 Urine Bilirubin NEGATIVE (NEGATIVE) 07/01/19 00:00 Urine Urobilinogen NEGATIVE mg/dL (<2.0) 07/01/19 00:00 Ur Leukocyte Esterase NEGATIVE (NEGATIVE) 07/01/19 00:00 Urine WBC (Auto) 5 /HPF 07/01/19 00:00 Urine RBC (Auto) 4 /HPF 07/01/19 00:00 Squamous Epi Cells Auto 4 /HPF 07/01/19 00:00 Urine Mucus (Auto) RARE /LPF 07/01/19 00:00 Urine Ascorbic Acid NEGATIVE (NEGATIVE) 07/01/19 00:00 Urine HCG, Qual NEGATIVE (NEGATIVE) 07/01/19 00:00 Impressions: Abdomen/Pelvis CT 07/01/19 01:34 IMPRESSION: 1. Findings consistent with significant acute pancreatitis. There is some narrowing of the splenic vein near the midline with no other definite complication of pancreatitis noted at this time. 2. Mild fatty infiltration of the liver. 3. Stable nodular densities in the bilateral breasts most likely representing cysts and/or fibroadenomas. The patient however is at an age for initial baseline screening mammography. If this has not been performed would recommend baseline mammogram. Stroke Is this a Stroke Patient?: No Acute Heart Failure - Is this a Heart Failure Patient?: No
== END 2019-07-03 16:10 | disposition home or self-care (01) | DRG 439 ==
LOC: ER 22:54 → EH 07-01 04:57 → 3W 07-01 08:59
PROVIDERS: ADMIT Emergency Medicine; ATTEND Emergency Medicine
DX: K85.20 Alcohol induced acute pancreatitis without necrosis or infection (principal); F10.288 Alcohol dependence with other alcohol-induced disorder; K86.0 Alcohol-induced chronic pancreatitis; F43.10 Post-traumatic stress disorder, unspecified; F31.9 Bipolar disorder, unspecified; F17.298 Nicotine dependence, other tobacco product, with other nicotine-induced disorders; E87.6 Hypokalemia; E83.42 Hypomagnesemia
CPT/HCPCS: 36415; 74177; 80048; 80053; 80061; 81001; 81025; 82150; 83690; 83735; 84132; 84702; 85025; 85027; 96361; 96374; 96375; 99285; J0360; J1170; J1644; J1885; J2270; J2300; J2405; J2765; J3475; J3490; J7030; J7120; S0028